=== PATIENT | female | born 1935 | race Caucasian/White ===

== ENCOUNTER 2020-01-25 13:58 | Inpatient (IN) | payer MEDICARE, OTHER ==
[~2020-01-25] VITALS: Ht 167.6 cm; Wt 62.9 kg
[~2020-01-25 13:58] MED LIST: ASCO100T4 PO; BIOT1CAP3 PO; BRIN8DRO OP; CALC-9 PO; CLON0.5T PO; DICL100G18 TP; DIVA500T2 PO; ESOM40CA25 PO; ESTR1PAT42 TD; GARL1CAP3 PO; LATA2.5D2 EACHEYE; LEVO50TA PO; MIRT15TA PO; MOXI3DRO18 LEFTEYE; MULT-658 PO; NEPA1.7D LEFTEYE; OMEG10005 PO; PRED5DRO16 LEFTEYE; PROP1DRO6 OP; PSYL0.5215 PO; RISP0.2519 PO; SIMV20TA PO; SIMV40TA PO; VITA1TAB19 PO
[2020-01-25] MEDS ORDERED: HALOPERIDOL LACT 5 MG/ML VIAL. IM ONE (14:30)
--- NOTE | 2020-01-25 14:33 | PHYS DOC ---
General Adult EDM: Chief Complaint: PSYCH EVALUATION HPI: HPI: 84 yo female presents after going off of her psychiatric medications. She has not been eating for about 4 days. She had a fall without loss of consciousness a couple days ago. Today she got weak and leaned against the wall and then kind of slumped to the floor. This is when family brought her in. She does not provide a very useful history as she changes from topic to topic rapidly. 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 She denies having any issues other than being hungry. No reported fever or chills. No reported illicit drug behavior. (MARITA PARK DO) Review of Systems: Review of Systems: Constitutional: Denies fever or chills Eyes: Denies change in visual acuity HENT: Denies nasal congestion or sore throat Respiratory: Denies cough or shortness of breath Cardiovascular: Denies chest pain or edema GI: Denies abdominal pain, nausea, vomiting, bloody stools or diarrhea : Denies dysuria Musculoskeletal: Denies back pain or joint pain Integument: Denies rash Neurologic: Denies headache, focal weakness or sensory changes Endocrine: Denies polyuria or polydipsia Lymphatic: Denies swollen glands Psychiatric: Pressured speech, wants to to be with her (MARITA PARK DO) Heart Score: Risk Factors: Risk Factors: DM, Current or recent (<one month) smoker, HTN, HLP, family history of CAD, obesity. Risk Scores: Score 0 - 3: 2.5% MACE over next 6 weeks - Discharge Home Score 4 - 6: 20.3% MACE over next 6 weeks - Admit for Clinical Observation Score 7 - 10: 72.7% MACE over next 6 weeks - Early Invasive Strategies (MARITA PARK DO) Current Medications: Current Meds: Current Medications Medications (Trade) Dose Ordered Sig/Sariah Start Time Stop Time Status Last Admin Dose Admin Haloperidol Lactate (Haldol) 5 mg 1X ONCE 01/25/20 14:30 01/25/20 14:31 (MARITA PARK DO) Allergies: Allergies: Allergies Coded Allergies Type Severity Reaction Last Updated Verified Penicillins Allergy Unknown 10/23/14 Yes (MARITA PARK DO) Physical Exam: PE: Constitutional: Well developed, well nourished, no acute distress, non-toxic appearance. [] HENT: Normocephalic, atraumatic, bilateral external ears normal, oropharynx moist, no oral exudates, nose normal. [] Eyes: PERRLA, EOMI, conjunctiva normal, no discharge. [] Neck: Normal range of motion, no tenderness, supple, no stridor. [] Cardiovascular:Heart rate regular rhythm, no murmur [] Lungs & Thorax: Bilateral breath sounds clear to auscultation [] Abdomen: Bowel sounds normal, soft, no tenderness, no masses, no pulsatile masses. [] Skin: Warm, dry, no erythema, no rash. [] Back: No tenderness, no CVA tenderness. [] Extremities: No tenderness, no cyanosis, no clubbing, ROM intact, no edema. [] Neurologic: Alert and oriented X 3, normal motor function, normal sensory function, no focal deficits noted. [] Psychologic: Affect hypersensitive, pressured speech, depressed. [] (MARITA PARK DO) EKG: EKG: Sinus rhythm, rate 80, normal axis, no ST elevations or depressions, PACs [] (MARITA PARK DO) Radiology/Procedures: Radiology/Procedures: [] (MARITA PARK DO) Impressions: PROCEDURE: CT HEAD WO CONTRAST CT head without contrast PQRS statement: CT scans at this facility use dose reduction including either automated exposure control, iterative reconstructions, and /or weight based radiation dosing via mA and kV modification when appropriate to reduce radiation dose to as low as reasonably achievable. HISTORY: Weakness, recent fall. COMPARISON: CT head May 04, 2010. FINDINGS: Senescent basal ganglia calcification stable. Mild generalized brain atrophy. Cerebral white matter hypoattenuation may represent changes of chronic small vessel ischemic disease. No intracranial hemorrhage, mass, orbits hydrocephalus. Hypodense foci of the basal ganglia and right thalamus not apparent on the prior exam could represent age-indeterminate ischemic infarcts. Surgical density of the right lateral orbit for glaucoma. Mastoids and bones are unremarkable. IMPRESSION: Age-indeterminate bilateral basal ganglia and right thalamic hemisphere ischemic infarcts new from prior imaging in 2009. Acuity versus chronicity could be further assessed with MR imaging. Electronically signed by: Quentin Cagle MD (01/25/2020 6:55 PM) [facility] (SYLVESTER RICHARD Jr. DO) Course & Med Decision Making: Course & Med Decision Making Pertinent Labs and Imaging studies reviewed. (See chart for details) During the patient's rapidly changing topics, she mentioned that she is depressed on that she just wants to to go be with her who is already . She made a passive threat about the heating repair technician, but I do not believe it is credible and requires reporting. We will give her 5 mg of Haldol and continue her medical work-up. The patient's labs are unremarkable. Her psychiatric work-up is pending. On the patient attempted to ambulate out of the room, she was quite off balance and unable to walk on her own. She lives at home by herself and I do not believe that she can go home. I have ordered a head CT. Am signing the patient out to Dr. Richard at 1800. He will determine her final disposition. [] (MARITA PARK DO) Dragon Disclaimer: Dragon Disclaimer: This electronic medical record was generated, in whole or in part, using a voice recognition dictation system. 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
[2020-01-25 14:51] LABS: BASO # 0.1 x10^3/uL (0.0-0.2); BASO % 1 % (0-3); EOS # 0.1 x10^3/uL (0.0-0.7); EOS % 1 % (0-3); HEMATOCRIT 44.2 % (36.0-47.0); HEMOGLOBIN 14.6 g/dL (12.0-15.5); LYMPH # 1.8 x10^3/uL (1.0-4.8); LYMPH % 25 % (24-48); MEAN CORPUSCULAR HEMOGLOBIN 29 pg (25-35); MEAN CORPUSCULAR HGB CONC 33 g/dL (31-37); MEAN CORPUSCULAR VOLUME 87 fL (79-100); MONO # 0.6 x10^3/uL (0.0-1.1); MONO % 9 % (0-9); NEUT # 4.5 x10^3uL (1.8-7.7); NEUT % 64 % (31-73); PLATELET COUNT 228 x10^3/uL (140-400); RED BLOOD COUNT 5.05 x10^6/uL (3.50-5.40); RED CELL DISTRIBUTION WIDTH 14.8 % (11.5-14.5); WHITE BLOOD COUNT 6.9 x10^3/uL (4.0-11.0)
[2020-01-25 15:30] LABS: BILIRUBIN,URINE NEG (NEG); CLARITY,URINE HAZY; COLOR,URINE YELLOW; GLUCOSE,URINE NEG (NEG); NITRITE,URINE NEG (NEG); UROBILINOGEN,URINE 0.2 mg/dL (0.2 mg/dL)
[2020-01-25 15:31] LABS: BACTERIA,URINE FEW /HPF (0-FEW); SQUAMOUS EPITHELIAL CELL,UR FEW /LPF
[2020-01-25 16:08] LABS: CALCIUM 9.2 mg/dL (8.5-10.1); GFR 52.8; POTASSIUM 3.2 mmol/L (3.5-5.1)
[2020-01-25 16:20] LABS: ALBUMIN 3.5 g/dL (3.4-5.0); ALBUMIN/GLOBULIN RATIO 0.9 (1.0-1.7); MAGNESIUM 2.3 mg/dL (1.8-2.4); TOTAL BILIRUBIN 0.4 mg/dL (0.2-1.0); TOTAL PROTEIN 7.2 g/dL (6.4-8.2)
--- NOTE | 2020-01-25 18:57 | RAD ---
CT head without contrast PQRS statement: CT scans at this facility use dose reduction including either automated exposure control, iterative reconstructions, and /or weight based radiation dosing via mA and kV modification when appropriate to reduce radiation dose to as low as reasonably achievable. HISTORY: Weakness, recent fall. COMPARISON: CT head May 04, 2010. FINDINGS: Senescent basal ganglia calcification stable. Mild generalized brain atrophy. Cerebral white matter hypoattenuation may represent changes of chronic small vessel ischemic disease. No intracranial hemorrhage, mass, orbits hydrocephalus. Hypodense foci of the basal ganglia and right thalamus not apparent on the prior exam could represent age-indeterminate ischemic infarcts. Surgical density of the right lateral orbit for glaucoma. Mastoids and bones are unremarkable. IMPRESSION: Age-indeterminate bilateral basal ganglia and right thalamic hemisphere ischemic infarcts new from prior imaging in 2009. Acuity versus chronicity could be further assessed with MR imaging. Electronically signed by: Quentin Cagle MD (01/25/2020 6:55 PM) [facility]
[2020-01-25] MEDS ORDERED: POTASSIUM CHLORIDE 20 MEQ TABLET.ER. PO ONE (19:00)
--- NOTE | 2020-01-25 19:57 | EKG ---
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
[2020-01-25] MEDS ORDERED: IV NORMAL SALINE 1,000ML 1,000 ML IV ONE (20:00)
--- NOTE | 2020-01-25 21:09 | NUR ---
The patient, NATALIYA RAMÍREZ, 84 y/o, F admitted by ALDEN MAX MD, was given written information regarding hospital policies, unit procedures and contact persons. Valuables were checked and logged. Call light in place. Will continue to monitor.
[2020-01-25 21:20] VITALS: BP 103/48
[2020-01-25] MEDS: IV NORMAL SALINE 1,000ML 1,000 ML IV SCH (21:34)
[2020-01-26] VITALS: BP 136/63
--- NOTE | 2020-01-26 03:10 | NUR ---
Pt woke up to used the BSC. Up with one assist, very weak. Pt cooperative and got back in bed and resting now.
[2020-01-26 04:55] VITALS: BP 95/45
--- NOTE | 2020-01-26 05:04 | NUR ---
Pt resting comfortable at this time. VSS. Pt to have am labs to be drawn. Family (son) to bring in pt med list and her cell phone today. Pt is calm and compliant with cares currently.
[2020-01-26 07:00] VITALS: BP 105/52
[2020-01-26] MEDS: IV NORMAL SALINE 1,000ML 1,000 ML IV SCH (07:00)
--- NOTE | 2020-01-26 10:19 | RAD ---
Carotid artery duplex Doppler ultrasound HISTORY: Speech difficulty. Age-indeterminate basal ganglia infarct on recent CT imaging. Stenosis calculations for CT, MR, and conventional angiography are based upon measurements of the distal ICA diameter in accordance with the NASCET methodology. Stenosis calculations for carotid ultrasound studies are derived from validated velocity criteria which are known to correlate with the NASCET methodology. FINDINGS: Right carotid artery demonstrates diffuse mild smooth subintimal plaque thickening throughout the common carotid and bifurcation with slight echogenic flat plaquing at the bifurcation without significant stenosis by color Doppler sonography. Normal carotid waveforms. Internal carotid artery peak systolic velocity 84 cm/s, end-diastolic velocity 12 cm/s. ICA/CC velocity ratio less than 1 which is normal. Velocity measurements indicate stenosis of less than 50 percent of the carotid artery. Right vertebral artery antegrade blood flow. Left carotid artery demonstrates diffuse smooth subintimal plaque thickening throughout the common carotid and bifurcation with slight flattening echogenic plaque at the bifurcation without stenosis by color Doppler sonography. Normal carotid waveforms. Internal carotid artery peak systolic velocity 91 cm/s, end-diastolic velocity 15 cm/s. ICA/CC velocity ratio is less than 1 which is normal. Velocity measurements indicate less than 50 percent stenosis of the carotid artery. Left vertebral artery antegrade blood flow. IMPRESSION: Mild plaquing of the cervical carotid arteries without evidence of significant stenosis or occlusion. Bilateral vertebral artery antegrade blood flow. Electronically signed by: Quentin Cagle MD (01/26/2020 10:16 AM) [facility]
[2020-01-26] MEDS ORDERED: HYDROcodone/APAP 10/325 1 TAB TABLET PO PRN (10:30)
[2020-01-26] MEDS ORDERED: OLANZapine IM 10 MG VIAL. IM PRN (10:30)
[2020-01-26 11:00] VITALS: BP 114/63
[2020-01-26] MEDS ORDERED: PANT40TA6 PO (14:47)
[2020-01-26] MEDS ORDERED: BRIN8DRO OS (14:47)
[2020-01-26] MEDS ORDERED: CYCL1DRO EACHEYE (14:47)
[2020-01-26] MEDS ORDERED: SIMV40TA18 PO (14:47)
[2020-01-26] MEDS ORDERED: BIMA2.5D OS (14:47)
[2020-01-26] MEDS ORDERED: DIVA500T4 PO (14:47)
[2020-01-26] MEDS ORDERED: MIRT15TA PO (14:47)
[2020-01-26] MEDS ORDERED: CLON0.5T PO (14:47)
--- NOTE | 2020-01-26 15:11 | NUR ---
Pt complaining of right lower leg pain, told this nurse she needed a pillow under it. This nurse placed a pillow under pt leg. Pt stated she needed more pillows, that she needed 4 more pillows under leg. 4 more pillows placed by this nurse under leg and again pt told this nurse that it wasn't enough. At this point this nurse started a discussion with pt about other ways to help alleviate pt leg pain because her leg appeared to be hyper-elevated Pt stated that her doctor was very specific about her need to elevate her legs for so many hrs during the day. Pt became agitated with this nurse and told this nurse she didn't understand what she was talking about. Pt demanded that nurse bring in a witness. This nurse brought in agricultural and forestry supervisor. 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 Bacon De Rinder asked pt what she did at hospital which caused pt to get even more agitated. Pt asked agricultural and forestry supervisor if pt asked agricultural and forestry supervisor to ask anymore questions.
[2020-01-26] MEDS ORDERED: clonazePAM 0.5 MG TABLET PO PRN (15:30)
[2020-01-26 15:58] LABS: CALCIUM 8.5 mg/dL (8.5-10.1); CREATININE 0.8 mg/dL (0.6-1.0); GFR 68.3; POTASSIUM 4.1 mmol/L (3.5-5.1)
[2020-01-26 16:04] LABS: ALBUMIN 2.7 g/dL (3.4-5.0); ALBUMIN/GLOBULIN RATIO 0.9 (1.0-1.7); TOTAL BILIRUBIN 0.7 mg/dL (0.2-1.0); TOTAL PROTEIN 5.6 g/dL (6.4-8.2)
--- NOTE | 2020-01-26 16:50 | HP ---
ADMIT DATE: 01/25/2020 HISTORY OF PRESENT ILLNESS: The patient is an 84-year-old -Finnish female patient, who was brought by her family to the Emergency Room, she has gone off her psychiatric medication. She has not been eating for about 4 days. She had a fall without loss of consciousness a couple of days ago and on the day of admission, she got weak and leaned against the wall and then kind of slumped to the floor, this is when the family brought her to the Emergency Room. She does not provide any useful history as she changes from topic to topic rapidly. She does not like the president [facility] and does not like to be asked about hindu. She denies having other than being hungry. No reports of fever or chills. No reported illicit drug behavior. She was extensively investigated in the Emergency Room and her EKG showed that she was in sinus rhythm at a rate of 80 beats per minute, no ST segment elevation or depression. Her CT scan of the head without contrast showed that the patient has senescent basal ganglia calcification, stable mild generalized brain atrophy, cerebral white matter hypoattenuation may represent changes of chronic small vessel ischemic disease, no intracranial hemorrhage, mass, or hydrocephalus. She does have hypodense foci of basal ganglia and right thalamus not apparent on the prior exam, could represent age indeterminate ischemic infarct. She has also surgical density in the right lateral orbit for glaucoma. Mastoids and bones are unremarkable. Apparently, the patient was supposed to be admitted as she mentioned that she is depressed that she just wanted to to be with her . She made a passive traits about the vice president education, but I don't believe it is credible under quash reporting. She was given 5 mg of Haldol and has had some lab work done, which basically were mostly unremarkable except that her potassium was low and the patient was therefore admitted to [facility] for medical clearance, continue further evaluation of possible new ischemic strokes and to consult the neurologist. Once stabilized, she can be transferred [facility] for inpatient psychiatric stabilization. PAST MEDICAL HISTORY: Significant for hypothyroidism, hyperlipidemia. She has also glaucoma. PAST SURGICAL HISTORY: Significant for bilateral cataract extraction. She also has surgery for her right eye for glaucoma, thyroidectomy as well as total abdominal hysterectomy. ALLERGIES: SHE IS ALLERGIC TO PENICILLIN. MEDICATIONS: She is currently on following medications: She is on simvastatin 60 mg at bedtime, omega-3 fatty acid 1000 mg 3 times a day, clonazepam 0.5 mg at bedtime, Divalproex for Depakote extended release she takes 1000 mg at bedtime, mirtazapine 15 mg at bedtime, cyclosporine 1 drop to both eyes twice a day, Simbrinza 1 drop to both eyes. She is on Lumigan 1 drop to both eyes at bedtime. She is on psyllium husk for Metamucil 520 mg p.o. daily. She is on Protonix 40 mg once a day, ascorbic acid 100 mg twice a day and garlic 1 capsule once a day. FAMILY HISTORY: Noncontributory. SOCIAL HISTORY: She is . She lives alone. She apparently had her children are living around, apparently taking care of her. She does not smoke, drink alcohol or use any recreational drugs. REVIEW OF SYSTEMS: As per history of present illness. PHYSICAL EXAMINATION: GENERAL: On arrival to the Emergency Room. Apparently, she was in a manic episode. She apparently was talking fast and she has a flight of ideas, changing topics quickly and on arrival, she looked pale, but no jaundice, cyanosis or thyromegaly. No jugular venous distention or limb edema. VITAL SIGNS: Her heart rate was 87, blood pressure was 180/101, temperature was 97.9, respiratory rate was 18 and oxygen saturation was 95%. HEAD, EYES, EARS, NOSE AND THROAT: Showed normocephalic and atraumatic. NECK: Supple. HEART: Showed normal first and second heart sounds. No gallop, rub or murmur. CHEST: Clear to auscultation. No crepitation or rhonchi. ABDOMEN: Distended, soft, nontender. NEUROLOGIC: She is very hard of hearing, has bilateral hearing aids with all other cranial nerves are intact. EXTREMITIES: She moves all extremities without difficulty. Examination of both legs showed no clubbing, cyanosis or edema. LABORATORY DATA: On admission showed a serum sodium 143, potassium 3.2, chloride 106, bicarbonate 30, anion gap of 7, BUN 27, creatinine 1, estimated GFR was 52 mL per minute. Her glucose was 141, calcium was 9.2, magnesium was 2.3. Her serum iron, TIBC, serum ferritin, iron deficiency anemia. Her total bilirubin, AST, ALT, alkaline phosphatase were normal. Total protein 7.2, albumin 3.5. Her urinalysis was essentially unremarkable. The CT scan of the head showed the patient has age indeterminate bilateral basal ganglia and right thalamic hemispheric ischemic infarct, new from prior imaging in 2009 acuity versus chronicity could be further assessed by MRI imaging. Her carotid Doppler ultrasound showed mild plaquing of the cervical carotid arteries without evidence of any significant stenosis or occlusion. Bilateral vertebral artery antegrade blood flow. ASSESSMENT AND PLAN: The patient was admitted to the ICU with a manic episode, dementia, dehydration, generalized weakness. She also had made suicidal ideation and therefore, she will also consult the psychiatrist and she will require inpatient psychiatric stabilization. We will reconcile all her medication and we have already consulted Dr. Pabon and Dr. Cohen for evaluation and treatment. ALDEN MAX MD DR: JAK/stevo JOB#: [id number] / [id number]
[2020-01-26 19:05] VITALS: BP 116/58
--- NOTE | 2020-01-26 19:13 | CONS ---
DATE OF CONSULTATION: 01/25/2020 NEUROLOGY CONSULTATION REFERRING PHYSICIAN: Dr. Stafford. REASON FOR CONSULTATION: Abnormal head CT scan consistent with new stroke. HISTORY OF PRESENT ILLNESS: This is an 84-year-old right-handed -Citizen Of [place] female who was admitted through Emergency Room on 01/25/2020 on account of generalized weakness, frequent falls without loss of consciousness. The patient stated the last fall was approximately 3 days ago and she related that to weakness of the lower extremities. Currently, she denies headaches, visual disturbances, nausea, vomiting, chest pain, shortness of breath or palpitation, dysarthria or dysphagia. In the Emergency Room, she was found to be depressed and she wanted to , to be with her . Initial nonenhanced head CT scan revealed evidence of chronic small vessel ischemic changes and possible new versus old right thalamic infarct, which were not seen in the head CT scan in 2009. PAST MEDICAL HISTORY: Significant for hypothyroidism, hyperlipidemia, glaucoma. PAST SURGICAL HISTORY: Positive for bilateral cataract removal, right eye surgery, thyroidectomy and total abdominal hysterectomy. SOCIAL HISTORY: The patient is . She lives by herself. She denies smoking, alcohol drinking, or illicit drug use. FAMILY HISTORY: Noncontributory. REVIEW OF SYSTEMS: A 12-point review of system was performed and as mentioned above in the history of present illness, otherwise unremarkable. PHYSICAL EXAMINATION: GENERAL: Well-developed, well-nourished -Citizen [place] female, not in acute distress. She weighs 62.9 kilos. VITAL SIGNS: Blood pressure 140/63, respiratory rate 18, pulse is 65 and regular, temperature 98.6, oxygen saturation 100% on room air. HEENT: Normocephalic and atraumatic, otherwise unremarkable. NECK: Supple. Negative for carotid bruit, lymphadenopathy or thyromegaly. LUNGS: Clear to A and P. CARDIOVASCULAR: Regular rate and rhythm, normal S1 and S2. There is no S3, S4 or murmur. ABDOMEN: Soft. Bowel sounds positive. EXTREMITIES: Negative for cyanosis, clubbing, or pitting edema. NEUROLOGICAL: MENTAL STATUS: The patient is alert and oriented x3. The speech is fluent. There is no language dysfunction. Memory, judgment, and abstracting thinking are fair. The patient denies hallucination or delusion. CRANIAL NERVES: Visual soliman are full. The pupils are reactive to light and accommodation. The extraocular movements are intact. There is no nystagmus. There is no facial motor or sensory deficits. Hearing is diminished bilaterally. The palate is elevated symmetrically. Sternocleidomastoid muscles are powerful bilaterally. The patient shrugs her shoulders symmetrically, protrudes her tongue in the midline without fasciculation or atrophy. MOTOR EXAMINATION: No focal muscle bulk wasting. The tone is normal. The strength is 4/5 throughout. SENSORY EXAMINATION: Revealed normal pinprick, light touch, vibratory and position senses. Deep tendon reflexes were symmetric and hypoactive with absent Achilles responses. GAIT: The stance is unsteady. The patient uses a walker for ambulation. DIAGNOSTIC DATA: Initial nonenhanced head CT scan revealed chronic small vessel ischemic changes and possible new right thalamic infarcts, not present on the CT scan performed on 2009. Carotid Doppler study revealed no evidence of acute arterial stenosis. LABORATORY DATA: CBC revealed white blood cells of 6.9000, hemoglobin 14.6, hematocrit 44.2, platelet count 228,000. Chemistry revealed sodium of 144, potassium 4.1, chloride 114, CO2 is 24, BUN 17, creatinine 0.8, glucose 100, calcium 8.5. Iron and TIBC is normal. Liver enzymes are normal. Urinalysis revealed no evidence of urinary tract infections. IMPRESSION: 1. Generalized weakness, probably due to underlying degenerative joints, more prominent at the knees and ankles. 2. Abnormal head CT scan consistent with chronic small vessel ischemic changes and right thalamic infarct may have also contributed to the generalized weakness. 3. Multiple medical problems include glaucoma, bilateral hearing loss, possible early dementia, hyperlipidemia, gastroesophageal reflux disease, hypothyroidism, depressions, and anxiety. RECOMMENDATIONS: 1. Continue with current management initiated by Dr. Stafford. 2. Continue with current management initiated by Dr. Cohen for underlying anxiety and depressions and suicidal ideations. 3. We will start the patient on baby aspirin 81 mg daily. 4. Physical therapy evaluation. 5. The patient may benefit from an inpatient psychiatric care at [facility]. M Eva MONSIVAIS MD DR: DIVINA/stevo JOB#: [id number] / [id number]
[2020-01-26] MEDS ORDERED: NON FORMULARY ITEM (Brinzolamide/Brimonid Tart (Simbrinza 1%-0.2% Eye Drops) 8 ML) OS SCH (21:00)
[2020-01-26] MEDS ORDERED: NON FORMULARY ITEM (Bimatoprost (Lumigan) 1 DROP) OS SCH (21:00)
[2020-01-26] MEDS: BRIMONIDINE 0.2% OPHTH SOLUTION 5ML BOTTLE. OS SCH ×2 (21:00→21:56)
[2020-01-26] MEDS: DORZOLAMIDE 2% OPHTH SOLUTION 10ML BOTTLE. OS SCH ×2 (21:00→21:56)
[2020-01-26] MEDS: ASCORBIC ACID 500 MG TABLET PO SCH ×2 (21:00→21:56)
[2020-01-26] MEDS: OMEGA-3 FATTY ACIDS/FISH OIL 1,000 MG CAPSULE. PO SCH ×2 (21:00→21:55)
[2020-01-26] MEDS: DIVALPROEX ER 500 MG TAB.ER.24H PO SCH (21:55)
[2020-01-26] MEDS: SIMVASTATIN 20 MG TABLET PO SCH (21:55)
[2020-01-26] MEDS: MIRTAZAPINE 15 MG TABLET PO SCH (21:56)
[2020-01-26] MEDS: LATANOPROST 0.005% OPHTH SOLUTION 2.5ML BOTTLE. OS SCH (21:56)
[2020-01-26] MEDS: cycloSPORINE 0.05% OPTH 1 DROP DROPERETTE OU SCH (21:56)
--- NOTE | 2020-01-26 22:30 | PDOC ---
Exam Note: Epifanio Note: Please also refer to the separate dictated note~for this date of service dictated separately.~Patient seen individually. Discussed the patient with Nursing staff reviewed the chart.~Reviewed interim history and current functioning. Reviewed vital signs,~Labs/ Radiology~and current medications noted below. Continue current treatment with the changes noted in the dictated addendum note Assessment: Vital Signs/I&O: Vital Signs Date Time Temp Pulse Resp B/P (MAP) Pulse Ox O2 Delivery O2 Flow Rate FiO2 01/26/20 20:00 Room Air 01/26/20 19:05 97.9 74 116/58 (77) 97 01/26/20 04:55 18 I & O 01/25/20 01/25/20 01/26/20 15:00 23:00 07:00 Intake Total 1000 ml 800 ml Balance 1000 ml 800 ml Labs: Laboratory Tests Test 01/26/20 08:45 Sodium Level 144 mmol/L (136-145) Potassium Level 4.1 mmol/L (3.5-5.1) Chloride Level 113 mmol/L (98-107) H Carbon Dioxide Level 24 mmol/L (21-32) Anion Gap 7 (6-14) Blood Urea Nitrogen 17 mg/dL (7-20) Creatinine 0.8 mg/dL (0.6-1.0) Estimated GFR (Cockcroft-Gault) 68.3 BUN/Creatinine Ratio 21 (6-20) H Glucose Level 100 mg/dL (70-99) H Calcium Level 8.5 mg/dL (8.5-10.1) Total Bilirubin 0.7 mg/dL (0.2-1.0) Aspartate Amino Transferase (AST) 33 U/L (15-37) Alanine Aminotransferase (ALT) 44 U/L (14-59) Alkaline Phosphatase 52 U/L (46-116) Total Protein 5.6 g/dL (6.4-8.2) L Albumin 2.7 g/dL (3.4-5.0) L Albumin/Globulin Ratio 0.9 (1.0-1.7) L Current Medications: Meds: Current Medications Medications (Trade) Dose Ordered Sig/Sariah Route PRN Reason Start Time Stop Time Status Last Admin Dose Admin Acetaminophen/ Hydrocodone Bitart (Lortab 10/325) 1 tab PRN Q4HRS PRN PO PAIN 01/26/20 10:30 01/26/20 10:45 Olanzapine (ZyPREXA ZYDIS) 2.5 mg PRN Q4HRS PRN PO ANXIETY / AGITATION 01/26/20 10:30 01/26/20 10:45 Cyclosporine (Restasis) 1 drop BID OU 01/26/20 21:00 01/26/20 21:56 Divalproex Sodium (Depakote Er) 1,000 mg QHS PO 01/26/20 21:00 01/26/20 21:55 Mirtazapine (Remeron) 15 mg QHS PO 01/26/20 21:00 01/26/20 21:56 Simvastatin (Zocor) 60 mg HS PO 01/26/20 21:00 01/26/20 21:55 Ascorbic Acid (Vitamin C) 500 mg BID PO 01/26/20 21:00 01/26/20 21:56 Fish Oil (Fish Oil) 1,000 mg TID PO 01/26/20 21:00 01/26/20 21:55 Latanoprost (Xalatan) 1 drop QHS OS 01/26/20 21:00 01/26/20 21:56 I have reviewed the current psychotropics carefully including drug interactions. Risk benefit ratio favors no change other than as noted in my dictated progress note. SABRINA SHANNON MD Jan 26, 2020 22:30
--- NOTE | 2020-01-26 22:49 | NUR ---
Responded to bed alarm at approx 2130, found patient sitting up at side of bed. Patient agitated, stated she had been calling for help for 15 minutes and that she needed to use the bathroom. Offered assistance with bedside commode, patient refused and demanded her son Renato be called. I placed a call to her son Renato and the patient repeated her complaint to her son that she had been calling for help for 15 minutes. I informed her son that she had not used the call light or otherwise called for help and that it was the bed alarm that alerted me she was in need of assistance. After ending the call I again offered to assist the patient with the bedside commode. Patient refused my assistance, however at this point her nurse, Shmuel had arrived and proceeded to assist patient with bedside commode.
--- NOTE | 2020-01-26 22:58 | NUR ---
Pt highly labile. Pt in pleasant mood at change of shift when Christine RN introduced this nurse to pt during bedside report. Pt allowed us to obtain VS and assist to bed. Pt tucked in and bed alarm set. Pt slept from approx. 1999 to 2144. Pt awoke upset that bed rails were up and alarm sounding. Pt reportedly attempted to use call light but had been pushing the bed rail button to raise HOB instead of utilizing the call light. Pt approached by Elías LANDAVERDE and pt would not allow him to assist her to the BSC. This nurse then entered room and pt reports she has been attempting to call for bathroom assistance for over 15 minutes without any response. But pt call light did not sound and pt did not call out. Pt reeducated on use of call light for assistance. Pt does not verbalize understanding. Pt refusing assist to BSC, states "I can do it my damn self since you people aren't willing to help. The service here is just terrible!" Reinforced to pt that staff is here to assist, but pt disagreeable. This RN stood by as pt used walker to turn and pivot to BSC, unsteady. Pt urinated and wiped self, provided x1 assist back to bed--now sitting up on bedside. Pt requested pencil and pad of paper to "report the incident to the superiors." Pt wrote on several pages, mostly nonsensical. Pt unwilling to take HS pills at this time. Pt hyperverbal, unable to focus on one topic. Pt reports she is a "prophetess" and knows what this nurse is going to say before I say it. After much coaxing and reviewing of med list provided by son, pt agreed to take all meds except for fish oil and vitamin C. Pt then states, "the curly haired girl said I could trust you, so I will. But I have no trust for that other man." PRN zyprexa given as indicated.
--- NOTE | 2020-01-26 23:39 | PN ---
DATE: SUBJECTIVE: The patient is resting, slightly propped up in bed, in no apparent distress. She is very hard of hearing and her voice is hoarse. She does have some flight of ideas and switching from one topic to another and seemed to be also paranoid. She claims that one of her relatives is a catering for her and brings her 1 week worth of food and ____ full and that her appetite is good, although she has been losing weight. She denied any suicidal or homicidal ideation. Apparently, she was evaluated by telepsych in the Emergency Room and psychiatrist recommended inpatient treatment. PHYSICAL EXAMINATION: GENERAL: When I examined her this afternoon, she looked somewhat pale, cachectic, but no jaundice, cyanosis or thyromegaly. No jugular venous distention. No limb edema. VITAL SIGNS: Her heart rate was 71, blood pressure 105/52, temperature 98.6, respiratory rate was 18 and oxygen saturation was 99% on room air. HEAD, EYES, EARS, NOSE AND THROAT: Showed normocephalic, atraumatic. She has bilateral hearing aid. NECK: Supple. CARDIAC: Normal first and second heart sounds. No gallop, rub or murmur. CHEST: Clear to auscultation. No crepitation or rhonchi. ABDOMEN: Distended, soft, nontender. NEUROLOGIC: She is very hard of hearing, otherwise all her cranial nerves are intact. She moves extremities without difficulty. LABORATORY DATA: Still pending at the time of this dictation. ASSESSMENT: The patient was admitted with what seemed to be manic episode that she stopped taking her psych medication, apparently has not been eating for about 4 days. She also had a fall without loss of consciousness a couple of days ago. She has also what seemed to be syncopal episode today. She did make remarks that she would like to and apparently she has made statement that she would like to kill the president trust company. I reconciled all her medication. She has also a finding of new ____ and her CT scan of the head showed that she has indeterminate bilateral basal ganglia and right thalamic ____ ischemic infarct, new from prior imaging in 2009. We did order fasting lipid profile, bilateral carotid Doppler. We have consulted Dr. Pabon and Dr. Cohen to assist with management. ALDEN MAX MD DR: Kyle JOB#: [id number] / [id number]
[2020-01-26 23:41] VITALS: BP 127/60
--- NOTE | 2020-01-26 23:50 | NUR ---
Pt sitting up in bed eating ice cream. Pt now requesting her daughter Dionna be called to secure her a Private Nurse. Pt reminded it is 2330 and that is it highly unlikely her daughter would be able to do so. Pt remains adamant that her daughter needs to be contacted. While attempting to place call, pt changed her mind and requested Dionna not be called until the morning instead. Pt finished snack and HOB lowered per request. Bed alarmed and call light in reach. Informed pt oncoming nurse would be here shortly, pt then asked "is she black or white? Can she be trusted?" Pt informed Seema is white and she can be trusted, pt stated, "good because I don't mess with other black people." Report given to oncoming RNSeema.
--- NOTE | 2020-01-26 23:57 | CONS ---
DATE OF CONSULTATION: 01/26/2020 PSYCHIATRIC CONSULTATION This note covers elements not covered in my initial note 01/26/2020. IDENTIFYING DATA: The patient is an 84-year-old Afro-Portuguese female seen in ICU bed 4, [facility], for a psychiatric consult requested by Dr. Stafford to evaluate the patient's psychotropics given her ongoing exacerbation of bipolar disorder, manic and worsening confusion with increasing short-term memory deficits. The patient was seen individually, discussed with AKHIL King, reviewed the chart including a psychiatric telehealth consultation completed 01/25/2020 by Sae Mcgee MD. CHIEF COMPLAINT: "I just want to go home. No, I can't go home, I don't have the keys. I used to see Ramon Davis, nurse practitioner at the [facility]. I stopped taking my medications. I wanted him to spend more time with me." Per nursing staff, the patient remains hyperverbal with ongoing mood lability. She has been upset with nursing staff that she was not given a shower when she should have earlier in the day. Remains anxious, restless, confused with worsening mood lability. HISTORY OF PRESENT ILLNESS: Reportedly, the patient has a history of bipolar disorder, mixed with psychotic features. She stopped her psychotropics a couple of weeks back and since then has had increasing paranoia, sleep disturbance, mood swings, appearing manic and she seems to like this elia. She has made statements that it would not bother her if she and then made other statements to the telehealth provider that some people had come to her home and taken some of the things "more than they should have and she wants to kill them." She denies any active suicidal or homicidal ideation at this time. She minimizes her memory deficits. PAST PSYCHIATRIC HISTORY: As above. MEDICAL HISTORY: Positive for hyperlipidemia. Reportedly, CT head has shown some vascular changes/ischemic changes. Hypothyroidism and GERD. CURRENT PSYCHOTROPICS: Remeron 15 mg at bedtime, Depakote 500 mg at bedtime, Klonopin 0.5 mg half a tablet at bedtime p.r.n. insomnia and anxiety. FAMILY HISTORY: Noncontributory. SOCIAL HISTORY: The patient lives alone at home. Her daughter is her DPOA and reportedly the DPOA has been activated. She states she has assistance with her grocery shopping. No alcohol or drug abuse history. She states she used to work at the [email or web address] on and is . MENTAL STATUS EXAMINATION: The patient was seen individually. She was seen evening of 01/26/2020, ICU bed 4. She is oriented to herself and situation. Speech has some latency, hyperverbal, somewhat distractable, difficult to interrupt her conversation, repeatedly making statements how she does not like people do not spend long periods of time with her during appointments, referring to her outpatient visits with the nurse practitioner at the [facility]. No active suicidal or homicidal ideation. She remains somewhat paranoid. Intellect average. Insight somewhat limited. Judgment intact to standard questioning. 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 Rest as above. RECOMMENDATIONS: From a psychiatric standpoint, it may be appropriate to check a valproic acid level, adjust Depakote to reach therapeutic level. Consider Risperdal or Seroquel as an atypical antipsychotic and a mood stabilizer. She may need inpatient psychiatric care. If her DPOA status is activated, this might be facilitated for the [facility] at [facility]. However, if she needs involuntary hospitalization as was initially suggested by the telehealth provider, then alternate placements may need to be sought since involuntary admissions are not accepted on our Psychiatry Unit at [facility]. Dr. Stafford, thank you for the opportunity to participate in your patient's care. We will follow with you. SABRINA SHANNON MD DR: RAQUEL/stevo JOB#: [id number] / [id number]
--- NOTE | 2020-01-27 02:45 | NUR ---
Pt slept from 0030 till about 0220. Pt woke up to used restroom. Pt stated that "I do this at home alone, let me try myself." Pt attempted to stand from sitting position on side of bed, x3 unsuccessful attempts. Pt only then allowed staff member to help "boost" her to a standing position and then swatted hand away stating "see I can do it alone." Pt up with walker and x1 assist to BSC to void. Pt then demanding a bath, stated "I stink and this bed stinks.....Its been days since I got a good bath..I will not get back in it till we both get cleaned." Pt assisted with bath and gown/bed linen changed. Pt did independently wash her face but needed x1 assist with bath, dressing and ambulating back to bed. Pt requested snack once back in bed, eating independently. Pt now doing "notes" on a pad of paper with pencil, stating "this is my thinking time..I will write a few notes for you to complete for me later." A few things on the "list" are personal belongings from home that she wants brought up to the hospital. Pt worked on her "notes" for about 40 minutes.
[2020-01-27 03:10] VITALS: BP 127/47
[2020-01-27 05:50] VITALS: BP 116/46
[2020-01-27 06:21] LABS: HEMATOCRIT 36.3 % (36.0-47.0); HEMOGLOBIN 11.9 g/dL (12.0-15.5); RED BLOOD COUNT 4.13 x10^6/uL (3.50-5.40); RED CELL DISTRIBUTION WIDTH 14.7 % (11.5-14.5); WHITE BLOOD COUNT 4.7 x10^3/uL (4.0-11.0)
[2020-01-27 06:26] LABS: ALBUMIN 2.4 g/dL (3.4-5.0); ALBUMIN/GLOBULIN RATIO 0.8 (1.0-1.7); CALCIUM 8.6 mg/dL (8.5-10.1); CREATININE 0.9 mg/dL (0.6-1.0); GFR 59.7; POTASSIUM 3.6 mmol/L (3.5-5.1); TOTAL BILIRUBIN 0.2 mg/dL (0.2-1.0); TOTAL PROTEIN 5.3 g/dL (6.4-8.2)
--- NOTE | 2020-01-27 06:30 | NUR ---
Pt slept soundly from 0325 till about 0545. Pt was cooperative with lab draw and AM vital signs. Pt assisted up to BSC with walker and x1 assist and back into bed. Pt was very particular with pillow placement under her head/legs, requesting more be added and then removed and placed back again. Pt finally found a "okay spot...it will have to do." Pt resting in bed with call light within hand. Bed alarm on.
[2020-01-27 09:17] VITALS: BP 135/64
--- NOTE | 2020-01-27 10:13 | PN ---
DATE: SUBJECTIVE: The patient denies any new medical or neurological complaints. However, she continues to have generalized weakness. OBJECTIVE: GENERAL: Well-developed, well-nourished female, not in acute distress. VITAL SIGNS: Blood pressure 135/64, respiratory rate 20, pulse is 76, temperature is 97.8, oxygen saturation 100% on room air. HEENT: Normocephalic, atraumatic, otherwise unremarkable. NECK: Supple. Negative for carotid bruit, lymphadenopathy or thyromegaly. LUNGS: Clear to A and P. CARDIOVASCULAR: Regular rate and rhythm, normal S1, S2. There is no S3, S4 or murmur. ABDOMEN: Soft. Bowel sounds positive. EXTREMITIES: Negative for cyanosis, clubbing or edema. NEUROLOGICAL EXAM: Mental Status: The patient is alert and oriented x 3. Speech is fluent. There is no language dysfunction. Memory, judgment, and abstracting thinking are fair. The patient denies hallucination or delusion. Cranial nerves are intact except for bilateral hearing loss. Motor examination: No focal muscle bulk was seen. The strength was 4/5 throughout. Sensory examination revealed normal pinprick, light touch, vibratory and position senses. Deep tendon reflexes were asymmetric and active without pathology responses. Gait: The stance is unsteady. The patient uses a walker for ambulation. LABORATORY DATA: CBC: White blood cells of 4.7 thousand, hemoglobin 11.9, hematocrit 36.3, platelet count 162,000. Chemistry revealed sodium of 144, potassium 3.6, chloride 112, CO2 of 24, BUN 14, creatinine 0.9, glucose 86 and calcium 8.6. IMPRESSION: 1. Abnormal head CT scan consistent with bilateral basal ganglia infarct and possible old right thalamic infarct as well. 2. Multiple medical problems include bilateral hearing loss, glaucoma, possible early dementia, hyperlipidemia, gastroesophageal reflux disease, hypothyroidism, depression and anxiety. RECOMMENDATIONS: 1. Continue with current management initiated by Dr. Stafford. 2. Continue with current management initiated by Dr. Cohen. 3. Physical therapy evaluation. M Eva MONSIVAIS MD DR: DIVINA/stevo JOB#: [id number] / [id number]
[2020-01-27] MEDS: DORZOLAMIDE 2% OPHTH SOLUTION 10ML BOTTLE. OS SCH ×3 (10:45→20:10)
[2020-01-27] MEDS: PANTOPRAZOLE 40 MG TABLET. PO SCH (10:45)
[2020-01-27] MEDS: BRIMONIDINE 0.2% OPHTH SOLUTION 5ML BOTTLE. OS SCH ×3 (10:45→20:09)
[2020-01-27] MEDS: cycloSPORINE 0.05% OPTH 1 DROP DROPERETTE OU SCH ×2 (10:46→20:09)
[2020-01-27] MEDS: OMEGA-3 FATTY ACIDS/FISH OIL 1,000 MG CAPSULE. PO SCH ×3 (10:46→20:10)
[2020-01-27] MEDS: ASPIRIN CHEWABLE 81 MG TABLET. PO SCH (10:46)
[2020-01-27] MEDS: ASCORBIC ACID 500 MG TABLET PO SCH ×2 (10:46→20:10)
[2020-01-27 15:00] VITALS: BP 125/70
[2020-01-27 19:33] VITALS: BP 122/75
[2020-01-27] MEDS: LATANOPROST 0.005% OPHTH SOLUTION 2.5ML BOTTLE. OS SCH (20:09)
[2020-01-27] MEDS: MIRTAZAPINE 15 MG TABLET PO SCH (20:10)
[2020-01-27] MEDS: SIMVASTATIN 20 MG TABLET PO SCH (20:10)
[2020-01-27] MEDS: DIVALPROEX ER 500 MG TAB.ER.24H PO SCH (20:10)
--- NOTE | 2020-01-27 20:11 | PN ---
DATE: 01/27/2020 SUBJECTIVE: The patient is resting, slightly propped up, sleeping comfortably in her bed, in no apparent distress. Nursing staff stated that she continued to be paranoid and delusional at times. She did actually walk with physical therapy in her room and was seen by Dr. Pabon and Dr. Cohen. Dr. Cohen has suggested that she might benefit from inpatient psychiatric stabilization. PHYSICAL EXAMINATION: GENERAL: When I examined her, she looked pale, somewhat cachectic, but no jaundice, cyanosis or thyromegaly. No jugular venous distention or limb edema. VITAL SIGNS: His heart rate was 76, blood pressure was 135/64, temperature 97.8, respiratory rate 20, and oxygen saturation 100%. HEAD, EYES, EARS, NOSE AND THROAT: Normocephalic, atraumatic. NECK: Supple. HEART: Showed normal first and second sounds. No gallop or murmur. CHEST: Clear to auscultation. No crepitation or rhonchi. ABDOMEN: Distended, soft, nontender. No guarding or rigidity. No organomegaly. All hernial orifice intact. Bowel sounds normal. NEUROLOGIC: She is grossly intact. Her intake was 1800, no output was recorded. LABORATORY DATA: Her white cell count was 4700, hemoglobin 12, hematocrit 36, MCV 88 and platelet count of 167,000. Her chemistry showed a serum sodium 144, potassium 3.6, chloride 112, bicarbonate 24, anion gap of 8, BUN 14, creatinine 0.9, estimated GFR was 59 mL per minute. Her glucose was 86, calcium was 8.6. Total bilirubin, AST, ALT, alkaline phosphatase were normal. Total protein 5.3, albumin 2.4. TSH was high at 9.618. Her serum triglycerides were 53, total cholesterol 182, LDL was 113, VLDL was 10, HDL cholesterol of 59 and ratio was only 3. Her urinalysis was essentially unremarkable. 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 The patient has multiple medical problems including hypothyroidism, hyperlipidemia as well as glaucoma. Her TSH slightly elevated at 9.4. I will arrange for her to check her T3, T4, free T4 and we will start her on perhaps Synthroid at 25 mcg if the T3, T4, free T4 are all in the lower side. ALDEN MAX MD DR: JAK/stevo JOB#: [id number] / [id number]
--- NOTE | 2020-01-27 21:02 | NUR ---
Pt called me to her room and stated she couldn't reach her job crackers that were on her window ledge near her cup of ice water as she is up sitting in her chair near the window ledge. I said, "you can't reach your job crackers?" She then placed her hand on the two packages and said, "do you see me reaching them?!" and I said yes but I thought she said she couldn't. She got hostile and I started to say another sentence and she told me to shut up! And I replied with that wasn't nice and that I apologized that I didn't see there were 3-4 more packages underneath her purse on the window ledge and I moved them over to the side table for her to have. 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 I have been doing everything she asked of me since I got here at 1900. Filling up 2 cups of ice water, one cup of just ice, dialing multiple phone numbers for her. Explaining and re-explaining each med I am giving while she checks them off a list of hers. I have answered all of her questions and done all of her requests happily.
[2020-01-28 00:06] LABS: THYROXINE 3.4 ug/dL (4.5-12.0)
[2020-01-28 00:22] VITALS: BP 108/50
[2020-01-28 04:03] VITALS: BP 121/47
[2020-01-28 06:29] LABS: CALCIUM 8.6 mg/dL (8.5-10.1); GFR 52.8
--- NOTE | 2020-01-28 07:24 | NUR ---
Pt up to chair in stable condition. Pt mood cooperative and cheerful this morning. We cleared the air from last night with one another with the misunderstanding. am labs reviewed.
[2020-01-28] MEDS: ASCORBIC ACID 500 MG TABLET PO SCH ×2 (09:00→09:16)
[2020-01-28] MEDS: DORZOLAMIDE 2% OPHTH SOLUTION 10ML BOTTLE. OS SCH ×2 (09:16→14:00)
[2020-01-28] MEDS: BRIMONIDINE 0.2% OPHTH SOLUTION 5ML BOTTLE. OS SCH ×2 (09:16→14:27)
[2020-01-28] MEDS: OMEGA-3 FATTY ACIDS/FISH OIL 1,000 MG CAPSULE. PO SCH ×2 (09:16→14:00)
[2020-01-28] MEDS: ASPIRIN CHEWABLE 81 MG TABLET. PO SCH (09:16)
[2020-01-28] MEDS: cycloSPORINE 0.05% OPTH 1 DROP DROPERETTE OU SCH (09:17)
[2020-01-28] MEDS: PANTOPRAZOLE 40 MG TABLET. PO SCH (09:18)
--- NOTE | 2020-01-28 09:32 | PN ---
DATE: SUBJECTIVE: The patient denies any new medical or neurological complaints, but she continues to have generalized weakness. OBJECTIVE: GENERAL: Well-developed, well-nourished female, not in acute distress. VITAL SIGNS: Blood pressure 121/47, respiratory rate 20, pulse is 80 and regular, temperature 97.9, oxygen saturation 97% on room air. HEENT: Normocephalic, atraumatic, otherwise unremarkable. NECK: Supple. Negative for carotid bruit, lymphadenopathy or thyromegaly. LUNGS: Clear to A and P. CARDIOVASCULAR: Regular rate and rhythm. Normal S1, S2. There is no S3, S4 or murmurs. ABDOMEN: Soft. Bowel sounds positive. EXTREMITIES: Negative for cyanosis, clubbing, pitting edema. NEUROLOGICAL: Mental status: The patient is alert and oriented x 3. Speech is fluent. There is no language dysfunction. Memory, judgment and abstracting thinking are fair. The patient denies hallucination or delusion. Cranial nerves are intact. No focal motor or sensory deficit. Motor examination: No focal muscle bulk was seen. The strength was 4/5 throughout. Sensory examination revealed normal pinprick, light touch, vibratory and position senses. Deep tendon reflexes were symmetric and active without pathologic responses. Gait: The patient is using a walker for ambulation. IMPRESSION: 1. Generalized weakness with abnormal head CT scan consistent with bilateral basal ganglia infarct and right thalamic infarct as well. 2. Multiple medical problems include bilateral hearing loss, glaucoma, possible early dementia, hyperlipidemia, gastroesophageal reflux disease, hypothyroidism. 3. Multiple psychiatric problems include bipolar disorder, possible schizoaffective disorders with psychotic features and suicidal ideation. RECOMMENDATIONS: 1. Continue with current management initiated by Dr. Stafford. 2. Continue with physical therapy as tolerated. 3. Continue with current care with current psychiatric care initiated by Dr. Cohen. 4. The patient may need inpatient psychiatric care at [facility]. M Eva MONSIVAIS MD DR: DIVINA/stevo JOB#: [id number] / [id number]
[2020-01-28 10:00] VITALS: BP 118/57
--- NOTE | 2020-01-28 15:05 | NUR ---
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 Took medications with no difficulties. Pt ambulated in [place] with PT/OT and stated that she enjoyed the activity and wished she could do it twice a day. Spoke with pt regarding her being moved up to [facility], she is understanding of this decision and hopes that after a few days she can return home. Discharge orders received from Dr Stafford, pt belongings staying with her and moving upstairs. Pt taken to [facility] via wheelchair at 1515.
[2020-01-28] MEDS ORDERED: OLAN5TAB7 PO (17:43)
[2020-01-28] MEDS ORDERED: ASPI81TA59 PO (17:43)
[2020-01-28] MEDS ORDERED: OLAN10VI2 IM (17:43)
[2020-01-28] MEDS ORDERED: HYDR-2767 PO (17:43)
--- NOTE | 2020-01-28 18:02 | DS ---
DATE OF DISCHARGE: 01/28/2020 HOSPITAL COURSE: The patient is an 84-year-old -[place] African female patient who was admitted through the Emergency Room as she apparently has not been eating for about 4 days. She had a fall without loss of consciousness a couple of days ago. On the day of admission, she got weak and leaned against the wall and then kind of clumped to the floor. She was clearly psychotic with marked flight of ideas and keeps changing topics from one to another rapidly. She was seen by Dr. 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 She was seen also by Dr. Pabon for possible new onset of stroke. As CT scan showed that she has bilateral basal ganglia infarct and the right thalamic infarct and given her underlying bipolar disorder and possible schizoaffective disorder, psychotic features and also suicidal ideation, decision was made to discharge her to [facility] for inpatient psychiatric stabilization. PHYSICAL EXAMINATION: GENERAL: When I saw her today, she was sitting slightly propped up in bed, in no apparent respiratory distress, slightly pale, but no jaundice, cyanosis or thyromegaly. No jugular venous distention. No limb edema. VITAL SIGNS: Her heart rate was 80, blood pressure was 118/57, temperature was 98.7, respiratory rate was 18 and oxygen saturation was 98%. HEAD, EYES, EARS, NOSE AND THROAT: Showed normocephalic, atraumatic. NECK: Supple. HEART: Showed normal first and second heart sounds. No gallop, rub or murmur. CHEST: Clear to auscultation. No crepitation or rhonchi. ABDOMEN: Scaphoid, soft, nontender. NEUROLOGIC: She is awake, alert, responding appropriately. LABORATORY DATA: Showed a white cell count 4700, hemoglobin 11.9, hematocrit 36, MCV 88 and platelet count of 167,000. As of this morning, her serum sodium was 144, potassium 4, chloride 110, bicarbonate 27, anion gap of 7, BUN 20, creatinine 1, estimated GFR was 52 mL per minute. Her glucose 128, calcium was 8.6. Her TSH was high at 9.618 and her total T4, free T4 and total T3 are all low indicating that she is hypothyroid and therefore we will start her on Synthroid. DISCHARGE MEDICATIONS: The patient was transferred to [facility] to continue on following medications: Protonix 40 mg once a day, aspirin 81 mg once a day, brimonidine tartrate for Alphagan one drop to both eyes 3 times a day, dorzolamide 1 drop to both eyes 3 times a day, latanoprost 1 drop to both eyes at bedtime, fish oil 1000 mg 3 times a day, ascorbic acid 500 mg twice a day, simvastatin 60 mg at bedtime, mirtazapine 60 mg at bedtime, divalproex 1000 mg at bedtime, cyclosporine 1 drop to both eyes twice a day, clonazepam 0.5 mg at bedtime, olanzapine 2.5 mg every 4 hours, olanzapine 2.5 mg at night time and hydrocodone/APAP 10/325 one tablet every 4 hours. I will add Synthroid 50 mcg once a day. FINAL DISCHARGE DIAGNOSES: 1. Generalized weakness and abnormal head CT scan consistent with bilateral basal ganglia infarct and right thalamic infarct. 2. Bipolar disorder with possible schizoaffective disorder with psychotic features and suicidal ideation. 3. Other medical problems include bilateral sensorineural deafness, glaucoma, early dementia, hyperlipidemia, gastroesophageal reflux disease and hypothyroidism. ALDEN MAX MD DR: JAK/stveo JOB#: [id number] / [id number]
== END 2020-01-28 15:15 | DRG 65 ==
LOC: ER 13:58 → ICU 21:02
PROVIDERS: ADMIT Internal Medicine; ATTEND Internal Medicine
DX: I63.89 Other cerebral infarction (principal); F31.64 Bipolar disorder, current episode mixed, severe, with psychotic features; R45.851 Suicidal ideations; F41.9 Anxiety disorder, unspecified; H40.9 Unspecified glaucoma; E03.9 Hypothyroidism, unspecified; E78.5 Hyperlipidemia, unspecified; Z60.2 Problems related to living alone; E86.0 Dehydration; H90.3 Sensorineural hearing loss, bilateral; K21.9 Gastro-esophageal reflux disease without esophagitis; G31.9 Degenerative disease of nervous system, unspecified; F01.50 Vascular dementia, unspecified severity, without behavioral disturbance, psychotic disturbance, mood disturbance, and anxiety; R29.6 Repeated falls; W19.XXXA Unspecified fall, initial encounter; Y93.89 Activity, other specified; Y92.89 Other specified places as the place of occurrence of the external cause; Y99.8 Other external cause status; Z79.899 Other long term (current) drug therapy; Z88.0 Allergy status to penicillin; Z98.41 Cataract extraction status, right eye; Z98.42 Cataract extraction status, left eye; Z90.710 Acquired absence of both cervix and uterus; Z03.818 Encounter for observation for suspected exposure to other biological agents ruled out
CPT/HCPCS: 36415; 70450; 80048; 80053; 80061; 81001; 83540; 83550; 83735; 84436; 84439; 84443; 84480; 85025; 85027; 93005; 93880; 96361; 96374; J2060; 97110; 97530; 99285-25; J7030; U0003-CS

== ENCOUNTER 2020-01-28 15:18 | Inpatient (IN) | payer MEDICARE, OTHER ==
[~2020-01-28] VITALS: Ht 167.6 cm; Wt 81.8 kg
[~2020-01-28 15:18] MED LIST changes: +BIMA2.5D OS; +BRIN8DRO OS; +CYCL1DRO EACHEYE; +DIVA500T4 PO; +PANT40TA6 PO; +SIMV40TA18 PO
[2020-01-28 15:58] VITALS: BP 141/80
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
[2020-01-28] MEDS ORDERED: METHYL SALICYLATE/MENTHOL TOPICAL OINTMENT 57GM TUBE. TP PRN (17:30)
[2020-01-28] MEDS ORDERED: MAGNESIUM HYDROXIDE 2,400 MG/30 ML ORAL.SUSP. PO PRN (17:30)
[2020-01-28] MEDS ORDERED: MAG HYDROX/AL HYDROX/SIMETH 30 ML ORAL.SUSP PO PRN (17:30)
[2020-01-28] MEDS ORDERED: ASPI81TA59 PO (17:43)
[2020-01-28] MEDS ORDERED: OLAN5TAB7 PO (17:43)
[2020-01-28] MEDS ORDERED: OLAN10VI2 IM (17:43)
[2020-01-28] MEDS ORDERED: HYDR-2767 PO (17:43)
[2020-01-28] MEDS ORDERED: OLANZapine IM 10 MG VIAL. IM PRN (17:45)
[2020-01-28] MEDS ORDERED: clonazePAM 0.5 MG TABLET PO PRN (17:45)
[2020-01-28 19:45] VITALS: BP 158/83
[2020-01-28] MEDS ORDERED: NON FORMULARY ITEM (Bimatoprost (Lumigan) 1 DROP) OS SCH (21:00)
[2020-01-28] MEDS: ASCORBIC ACID 500 MG TABLET PO SCH (21:00)
[2020-01-28] MEDS ORDERED: NON FORMULARY ITEM (Brinzolamide/Brimonid Tart (Simbrinza 1%-0.2% Eye Drops) 8 ML) OS SCH (21:00)
[2020-01-28] MEDS: LATANOPROST 0.005% OPHTH SOLUTION 2.5ML BOTTLE. OS SCH (21:25)
[2020-01-28] MEDS: BRIMONIDINE 0.2% OPHTH SOLUTION 5ML BOTTLE. OS SCH (21:25)
[2020-01-28] MEDS: DORZOLAMIDE 2% OPHTH SOLUTION 10ML BOTTLE. OS SCH (21:26)
[2020-01-28] MEDS: cycloSPORINE 0.05% OPTH 1 DROP DROPERETTE OU SCH (21:27)
[2020-01-28] MEDS: MIRTAZAPINE 15 MG TABLET PO SCH (21:28)
[2020-01-28] MEDS: DIVALPROEX ER 500 MG TAB.ER.24H PO SCH (21:28)
[2020-01-28] MEDS: OMEGA-3 FATTY ACIDS/FISH OIL 1,000 MG CAPSULE. PO SCH (21:28)
[2020-01-28] MEDS: SIMVASTATIN 20 MG TABLET PO SCH (21:29)
--- NOTE | 2020-01-28 22:15 | PDOC ---
Exam Note: Epifanio Note: Please also refer to the separate dictated note~for this date of service dictated separately.~Patient seen individually. Discussed the patient with Nursing staff reviewed the chart.~Reviewed interim history and current functioning. Reviewed vital signs,~Labs/ Radiology~and current medications noted below. Continue current treatment with the changes noted in the dictated addendum note Assessment: Vital Signs/I&O: Vital Signs Date Time Temp Pulse Resp B/P (MAP) Pulse Ox O2 Delivery O2 Flow Rate FiO2 01/28/20 19:45 97.9 110 20 158/83 (108) 99 Room Air Current Medications: Meds: Current Medications Medications (Trade) Dose Ordered Sig/Sariah Route PRN Reason Start Time Stop Time Status Last Admin Dose Admin Cyclosporine (Restasis) 1 drop BID OU 01/28/20 21:00 01/28/20 21:27 Fish Oil (Fish Oil) 1,000 mg TID PO 01/28/20 21:00 01/28/20 21:28 Divalproex Sodium (Depakote Er) 1,000 mg QHS PO 01/28/20 21:00 01/28/20 21:28 Mirtazapine (Remeron) 15 mg QHS PO 01/28/20 21:00 01/28/20 21:28 Simvastatin (Zocor) 60 mg HS PO 01/28/20 21:00 01/28/20 21:29 Latanoprost (Xalatan) 1 drop QHS OS 01/28/20 21:00 01/28/20 21:25 Dorzolamide HCl (Trusopt) 1 drop TID OS 01/28/20 21:00 01/28/20 21:26 Brimonidine Tartrate (Alphagan) 1 drop TID OS 01/28/20 21:00 01/28/20 21:25 I have reviewed the current psychotropics carefully including drug interactions. Risk benefit ratio favors no change other than as noted in my dictated progress note. Diagnosis: Problems: (1) Bipolar disorder with psychotic features (2) Cognitive impairment SABRINA SHANNON MD Jan 28, 2020 22:15
--- NOTE | 2020-01-28 23:13 | NUR ---
Pt sitting in room at shift change. During nursing report, pt was noted to walk to her doorway using rw when she went down on her knees. Pt was then witnessed by two RN's to descend to the floor in a controlled manner. When staff attempted to assist, pt stated "I think I'm dying". Staff asked pt why she felt this way but she refused to answer any questions. VS obtained and were stable. When staff attempted to help pt up off the floor, pt became rigid and refused to help but maintained an upright position. Pt was then placed in her bed by staff, bed lowered, and alarm on. After approximately 20 minutes, pt then got up on her own and staff responded to the bed alarm. Pt reported she needed to use the bathroom and staff assisted. After which, pt proceeded to wash and dry her hands three times, repeatedly. Pt mood has been very labile this evening; she has been irritable, anxious, and tearful. Pt has also been hyper-verbal and tangental. Pt has asked multiple times to use the phone to call her daughter, her furniture mechanic, or the police. Pt has also asked multiple staff how she gets "out of this place". Pt resistive with eye drops and medications this evening but did comply after much encouragement.
--- NOTE | 2020-01-29 01:30 | NUR ---
This nurse entered pt room as bed alarm sounding. Pt sitting up on the side of the bed, c/o LE edema. Pt demanding doctor be called to hospital to see her "Now!" I informed pt that is not proper procedure and the doctor would be here in the morning to see her. Pt stated "you mean I have to wait until in the morning? I could have a blood clot or something!" After examining pt LE again, I informed pt that there are currently no s/sx of blood clot. Pt then stated "You think I don't know what a blood clot is? 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 I am a prophetess!" Pt then reported to this nurse that she would just stay up the rest of the night until she could talk to the doctor. Pt then proceeded to place herself on the floor in her room in a sitting position.
--- NOTE | 2020-01-29 01:53 | NUR ---
Pt tab alarm sounding, this nurse entered pt room and noted pt to have the alarm box in her brief. This nurse removed the alarm from pt's brief and she attempted to snatch it back out of my hands. Pt then began to claim that she had fallen out of bed, when I confronted her with the fact that she was seen placing herself on the floor, pt began to yell and call me a liar. Pt then threatened to call the police and have people fired. Pt then accused this nurse of "getting smart" when I was simply agreeing with her. Pt then stated "Lady! I hope your babies..." I told pt there was no need tpo threaten me or anyone else and she said "well, I didn't say what about your baby. I hope you have a safe delivery". I then informed her that I was not expecting and pt said "I am a prophetess! I see things! And you people just expect me to stay on the floor all night." I offered to help her off the floor but pt instead threatened me again with calling the police and getting people fired. Pt then proceeded to rip her wig off of her head and throw it. At this time, staff exited the room.
[2020-01-29 05:53] VITALS: BP 162/65
[2020-01-29 06:51] LABS: BASO % 0 % (0-3); EOS # 0.1 x10^3/uL (0.0-0.7); EOS % 2 % (0-3); HEMATOCRIT 41.5 % (36.0-47.0); HEMOGLOBIN 13.4 g/dL (12.0-15.5); LYMPH # 1.4 x10^3/uL (1.0-4.8); LYMPH % 24 % (24-48); MEAN CORPUSCULAR HEMOGLOBIN 29 pg (25-35); MEAN CORPUSCULAR HGB CONC 32 g/dL (31-37); MEAN CORPUSCULAR VOLUME 89 fL (79-100); MONO # 0.4 x10^3/uL (0.0-1.1); MONO % 7 % (0-9); NEUT % 68 % (31-73); PLATELET COUNT 194 x10^3/uL (140-400); RED BLOOD COUNT 4.68 x10^6/uL (3.50-5.40); RED CELL DISTRIBUTION WIDTH 14.8 % (11.5-14.5); WHITE BLOOD COUNT 5.9 x10^3/uL (4.0-11.0)
--- NOTE | 2020-01-29 07:07 | NUR ---
Patient is aggressive and agitated, she is demanding her glasses. Staff pointed out she has her glasses, she states she wants the other ones. Patient states she cannot hear staff while wearing staff, when staff speak louder, she stated 'don't scream at me'. Patient then deliberately broke her glasses, she bent the frame so that it will no longer hold the left lens. Patient was able to continue to argue with staff despite not wearing her hearing aids and staff wearing their masks. Patient is now pacing in hallway. Will continue to monitor and report to .
[2020-01-29 07:10] LABS: ALBUMIN 3.1 g/dL (3.4-5.0); ALBUMIN/GLOBULIN RATIO 0.8 (1.0-1.7); ALK PHOS 62 U/L (46-116); ALT (SGPT) 33 U/L (14-59); ANION GAP 9 (6-14); AST (SGOT) 19 U/L (15-37); BLOOD UREA NITROGEN 18 mg/dL (7-20); BUN/CREATININE RATIO 18 (6-20); CALCIUM 8.9 mg/dL (8.5-10.1); CARBON DIOXIDE 27 mmol/L (21-32); CHLORIDE 108 mmol/L (98-107); GFR 52.8; GLUCOSE 133 mg/dL (70-99); MAGNESIUM 1.9 mg/dL (1.8-2.4); SODIUM 144 mmol/L (136-145); TOTAL BILIRUBIN 0.2 mg/dL (0.2-1.0); TOTAL PROTEIN 6.9 g/dL (6.4-8.2)
[2020-01-29 07:21] LABS: VAL ACID 64 mcg/mL (50-100)
[2020-01-29 07:22] LABS: POTASSIUM 3.6 mmol/L (3.5-5.1)
[2020-01-29] MEDS: ASCORBIC ACID 500 MG TABLET PO SCH ×3 (09:25→20:56)
[2020-01-29] MEDS: ASPIRIN CHEWABLE 81 MG TABLET. PO SCH ×2 (09:25→09:27)
[2020-01-29] MEDS: cycloSPORINE 0.05% OPTH 1 DROP DROPERETTE OU SCH ×2 (09:27→21:00)
[2020-01-29] MEDS: DORZOLAMIDE 2% OPHTH SOLUTION 10ML BOTTLE. OS SCH ×4 (09:27→21:00)
[2020-01-29] MEDS: OMEGA-3 FATTY ACIDS/FISH OIL 1,000 MG CAPSULE. PO SCH ×3 (09:27→20:56)
[2020-01-29] MEDS: BRIMONIDINE 0.2% OPHTH SOLUTION 5ML BOTTLE. OS SCH ×3 (09:27→21:00)
[2020-01-29] MEDS: PANTOPRAZOLE 40 MG TABLET. PO SCH (09:27)
--- NOTE | 2020-01-29 11:15 | NUR ---
Patient complained to charge nurse that her room was too hot. When the charge nurse attempted to tell her that she would have to be patient because the unit nolen is broken, Patient pretended not to be able to hear her because the charge nurse had her surgical mask on and banged on the window, demanding to have someone come right now. She then went to sit in the [address] hallway after being informed multiple times that it would take several minutes. Charge nurse informed me of patient's complaint and we turned on the AC in patient's room, thermometer read 74*F. Patient saw plant ops on the unit and complained to them that her room was too hot; plant ops checked her thermostat about 2 minutes after charge nurse and I had left her room. We left her room and patient entered. She then immediately came out of her room and complained that it was too cold. Patient instructed to wait for the system to adjust. Patient refused snacks after asking for them several times and instructed there were snacks in the day room and she was welcome to walk to the day room to get some. She refused, stating she had diarrhea and could not walk that far. This was at the same time that she walked to the [facility] nurses' station to talk with plant ops personnel. When staff brought the snack cart by her room shortly after, patient refused, stating that she was fasting.
--- NOTE | 2020-01-29 11:33 | CONS ---
DATE OF CONSULTATION: 01/29/2020 ATTENDING PHYSICIAN: Dr. Cohen. REASON FOR CONSULTATION: We are asked to see this patient for medical consultation. HISTORY OF PRESENT ILLNESS: The patient is an 84-year-old female who was admitted yesterday. She has a longstanding history of bipolar disorder with psychotic features, cognitive impairment. She is very paranoid. She does not want to be here. She was thrashing about. We tried to calm her down. Unfortunately, she remains very paranoid and uncooperative. She has been here evidently in the past before. She desperately wants to leave and go home. PAST MEDICAL HISTORY: Obtained from the old chart. She has a history of cognitive impairment, dementia, bipolar disorder with psychotic features, paranoia and cataract surgery. CURRENT MEDICINES: Reviewed. ALLERGIES: She has allergies to PENICILLIN, which causes a rash. CURRENT MEDICATIONS: Include Mylanta, vitamin C, aspirin, Alphagan eyedrops, Klonopin p.r.n., Restasis eyedrops, Depakote, Trusopt, omega 3 fish oil, hydrocodone p.r.n., Xalatan eyedrops, magnesium hydroxide, Remeron, Zyprexa, Protonix, Zocor. SOCIAL HISTORY: She is a nonsmoker, nondrinker. FAMILY HISTORY: Unobtainable. REVIEW OF SYSTEMS: Unobtainable due to the patient's mental state. PHYSICAL EXAMINATION: VITAL SIGNS: On admission showed a blood pressure of 141/80, pulse is 86 and regular, temperature 98.3 degrees Fahrenheit and her oxygen saturation were 99% on room air. HEENT: Head is without trauma. Pupils are reactive. Sclerae nonicteric. Oropharynx is clear. NECK: Supple, no bruits identified. LUNGS: Otherwise clear. CARDIOVASCULAR: Showed distant heart tones. No gallops. Peripheral pulses are palpable and full. ABDOMEN: Soft, scaphoid, nontender, no organomegaly. Bowel sounds are hypoactive. EXTREMITIES: Showed 2+ edema of the lower extremities, nonpitting. NEUROLOGIC: The patient is confused. She is very agitated and paranoid and thrashing about. PERTINENT LABORATORY STUDIES: Her hemoglobin is maintained at 13.4 g/dL with white count of 5900. Electrolytes are within normal range. Nonfasting blood sugar 138. Liver panel all within normal range. CT of the head showed no acute pathology, age indeterminate bilateral basal ganglia and right thalamic hemispheric ischemic infarct, chronic compared with the previous imaging studies from 2010. ASSESSMENT: 1. An 84-year-old female with bipolar disorder. 2. Profound psychosis with paranoia. 3. Probable old strokes found on CT. 4. Agitation relating to dementia. RECOMMENDATIONS: 1. The patient is stable from a medical standpoint. 2. I reviewed her medications. I do not recommend any changes for now. 3. We will try to minimize her sedation. Thank you again for asking me to see the patient for medical consultation. We should gladly follow along during the course of her admission. DELPHINE MCBRIDE MD DR: RJ/stevo JOB#: [id number] / [id number] antonietta Stafford Dr.
--- NOTE | 2020-01-29 12:15 | NUR ---
Patient refusing to come to lunch, states she is fasting for 12 hours. Tray placed in warmer cabinet, will continue to monitor.
--- NOTE | 2020-01-29 12:20 | HP ---
ADMIT DATE: 01/28/2020 ADMISSION HISTORY AND EVALUATION This is a late entry, January 27. I met with the patient evening of January 27, had lengthy telephone conversation with the patient's daughter evening of January 27. Reviewed past records from ICU where the patient had been an inpatient. Discussed with Cyndy Galarza, client coordinator, reviewed current and past records. IDENTIFYING DATA: The patient is an 84-year-old Afro-[place]and[place] female referred to us from ICU bed 4, [facility] by Dr. Stafford on account of increasingly manic symptoms, being hyperverbal, not eating for 4 days, paranoid. She was living alone at home, had made statement she wanted to and be with her . She had stopped her psychotropics for bipolar disorder. Over the past several weeks, behaviors have been worsening, dangerous potentially to herself, resulting in this referral. CHIEF COMPLAINT: "Sit down here. I have a lot to talk about." The patient is extremely hyperverbal, agitated, anxious, paranoid. HISTORY OF PRESENT ILLNESS: The patient has a long history of bipolar disorder. I had followed her as an outpatient about 20 years ago and she still seems to remember this. She has also had 1 psychiatric hospitalization at [facility] due to her bipolar manic symptoms and she was not happy with that stay. Recently, she stopped all her psychotropics that were being prescribed by Jet Davis, nurse practitioner at the [facility]. She has been manic, hyperverbal, paranoid with fleeting suicidal ideation, no plans, intent or attempt. She does have some short-term memory deficits. PAST PSYCHIATRIC HISTORY: As above. MEDICAL HISTORY: Hypothyroidism, hyperlipidemia, glaucoma, dehydration, arthritis. ACCU-CHEKS: None. CODE STATUS: FULL CODE. ALLERGIES: PENICILLIN. Ambulates with cane and walker. Takes medications whole. CURRENT PSYCHOTROPICS: Depakote ER 1000 mg at bedtime, Remeron 15 mg at bedtime, Klonopin 0.5 mg at bedtime p.r.n., Zyprexa was added p.r.n. psychosis, agitation post-admission. FAMILY HISTORY: Noncontributory. SOCIAL HISTORY: The patient lives alone at home. Her daughter lives in the [place] area about 30-40 miles from her. No alcohol or drug abuse, physical, sexual or elder abuse. She is not known to be a perpetrator. REACTION TO HOSPITALIZATION: The patient accepting of it. ASSETS: Supportive family. MENTAL STATUS EXAMINATION: The patient was seen individually evening of January 27. She is quite hyperverbal, difficult to redirect. Speech coherent, rapid at times. Abstraction fair, computation impaired, language function intact, attention span short. Mood and affect withdrawn at times and quite grandiose, overbearing at other times. No active suicidal or homicidal ideation. LABORATORY DATA: Reviewed. IMPRESSION: Bipolar disorder, manic with psychotic features, mild cognitive impairment; anxiety disorder, unspecified; impulse control disorder, unspecified. Rest as above. PLAN: Admit to Geropsychiatry Unit at [facility]. I will see the patient daily individually from a psychiatric standpoint. Medical followup with Dr. Stafford/Dr. Orr. Continue current psychotropics. Check a valproic acid level, adjust to reach therapeutic level. Consider adding Seroquel as a mood stabilizer, but we will ensure the Depakote is therapeutic before we do this. Estimated length of stay 10-12 days. DISPOSITION: Plan is possibly to a higher level of care, rather than returning home. MAN Lucian SHANNON MD DR: RAQUEL/stevo JOB#: [id number] / [id number]
[2020-01-29 14:48] LABS: THYROID STIM HORMONE (TSH) 21.004 uIU/mL (0.358-3.740)
[2020-01-29 16:00] VITALS: BP 129/67
--- NOTE | 2020-01-29 18:15 | NUR ---
Patient convinced another patient to give her the cordless phone. Staff informed patient she was not allowed to use the phone, she became agitated and threw the phone at staff. She was escorted to the [facility] [place], where she threw a plastic cup at the same staff member. She has been stating that she needs to use the restroom, but has refused to use the restroom in the quiet room. MD witnessed patient's tantrum and issued new orders. Will provide medications per eMAR, and report to oncoming staff.
[2020-01-29] MEDS: risperiDONE 0.5 MG TABLET. PO SCH ×2 (19:07→20:56)
[2020-01-29] MEDS: DIVALPROEX ER 500 MG TAB.ER.24H PO SCH (20:55)
[2020-01-29] MEDS: MIRTAZAPINE 15 MG TABLET PO SCH (20:56)
[2020-01-29] MEDS: SIMVASTATIN 20 MG TABLET PO SCH (20:56)
[2020-01-29] MEDS: LATANOPROST 0.005% OPHTH SOLUTION 2.5ML BOTTLE. OS SCH (20:56)
[2020-01-29] MEDS ORDERED: risperiDONE 0.25 MG TABLET. PO SCH (21:00)
--- NOTE | 2020-01-29 22:19 | PDOC ---
Exam Note: Epifanio Note: Please also refer to the separate dictated note~for this date of service dictated separately.~Patient seen individually. Discussed the patient with Nursing staff reviewed the chart.~Reviewed interim history and current functioning. Reviewed vital signs,~Labs/ Radiology~and current medications noted below. Continue current treatment with the changes noted in the dictated addendum note Assessment: Vital Signs/I&O: Vital Signs Date Time Temp Pulse Resp B/P (MAP) Pulse Ox O2 Delivery O2 Flow Rate FiO2 01/29/20 16:00 97.8 68 16 129/67 (87) 96 01/29/20 05:53 Room Air I & O 01/28/20 01/28/20 01/29/20 15:00 23:00 07:00 Intake Total 720 ml Balance 720 ml Labs: Laboratory Tests Test 01/29/20 06:22 White Blood Count 5.9 x10^3/uL (4.0-11.0) Red Blood Count 4.68 x10^6/uL (3.50-5.40) Hemoglobin 13.4 g/dL (12.0-15.5) Hematocrit 41.5 % (36.0-47.0) Mean Corpuscular Volume 89 fL (79-100) Mean Corpuscular Hemoglobin 29 pg (25-35) Mean Corpuscular Hemoglobin Concent 32 g/dL (31-37) Red Cell Distribution Width 14.8 % (11.5-14.5) H Platelet Count 194 x10^3/uL (140-400) Neutrophils (%) (Auto) 68 % (31-73) Lymphocytes (%) (Auto) 24 % (24-48) Monocytes (%) (Auto) 7 % (0-9) Eosinophils (%) (Auto) 2 % (0-3) Basophils (%) (Auto) 0 % (0-3) Neutrophils # (Auto) 4.0 x10^3uL (1.8-7.7) Lymphocytes # (Auto) 1.4 x10^3/uL (1.0-4.8) Monocytes # (Auto) 0.4 x10^3/uL (0.0-1.1) Eosinophils # (Auto) 0.1 x10^3/uL (0.0-0.7) Basophils # (Auto) 0.0 x10^3/uL (0.0-0.2) Sodium Level 144 mmol/L (136-145) Potassium Level 3.6 mmol/L (3.5-5.1) Chloride Level 108 mmol/L (98-107) H Carbon Dioxide Level 27 mmol/L (21-32) Anion Gap 9 (6-14) Blood Urea Nitrogen 18 mg/dL (7-20) Creatinine 1.0 mg/dL (0.6-1.0) Estimated GFR (Cockcroft-Gault) 52.8 BUN/Creatinine Ratio 18 (6-20) Glucose Level 133 mg/dL (70-99) H Calcium Level 8.9 mg/dL (8.5-10.1) Magnesium Level 1.9 mg/dL (1.8-2.4) Iron Level 57 ug/dL (50-170) Total Iron Binding Capacity 297 ug/dL (250-450) Iron Saturation 19 % (15-34) Total Bilirubin 0.2 mg/dL (0.2-1.0) Aspartate Amino Transferase (AST) 19 U/L (15-37) Alanine Aminotransferase (ALT) 33 U/L (14-59) Alkaline Phosphatase 62 U/L (46-116) Total Protein 6.9 g/dL (6.4-8.2) Albumin 3.1 g/dL (3.4-5.0) L Albumin/Globulin Ratio 0.8 (1.0-1.7) L Triglycerides Level 89 mg/dL (0-150) Cholesterol Level 205 mg/dL (0-200) H LDL Cholesterol, Calculated 125 mg/dL (0-100) H VLDL Cholesterol, Calculated 17 mg/dL (0-40) Non-HDL Cholesterol Calculated 142 mg/dL (0-129) H HDL Cholesterol 63 mg/dL (40-60) H Cholesterol/HDL Ratio 3.0 Vitamin B12 Level 780 pg/mL (247-911) 25-Hydroxy Vitamin D Total 28.7 ng/mL (30-100) L Thyroid Stimulating Hormone (TSH) 21.004 uIU/mL (0.358-3.740) Valproic Acid Level 64 mcg/mL (50-100) Valproic Acid Last Dose Date 01/28/20 Valproic Acid Last Dose Time 2100 Treponema pallidum Antibody Nonreactive (Nonreactive) Current Medications: Meds: Current Medications Medications (Trade) Dose Ordered Sig/Sariah Route PRN Reason Start Time Stop Time Status Last Admin Dose Admin Pantoprazole Sodium (Protonix) 40 mg DAILY PO 01/29/20 09:00 01/29/20 09:27 Risperidone (RisperDAL) 0.5 mg QHS PO 01/29/20 18:45 01/29/20 20:56 I have reviewed the current psychotropics carefully including drug interactions. Risk benefit ratio favors no change other than as noted in my dictated progress note. Diagnosis: Problems: (1) Anxiety disorder, unspecified (2) Impulse control disorder, unspecified (3) Bipolar disorder with psychotic features (4) Cognitive impairment SABRINA SHANNON MD Jan 29, 2020 22:19
[2020-01-30 00:07] LABS: HEMOGLOBIN A1C 5.6 % (4.8-5.6)
--- NOTE | 2020-01-30 02:43 | NUR ---
Nursing Note The patient was located in her room for her assessment and medication pass. The patient was calm and appropriate during interactions with this nurse. The patient took her medication whole but requested apple sauce with her larger pills. the patient is currently sleeping in her room.
[2020-01-30 06:42] VITALS: BP 111/73
[2020-01-30] MEDS: OMEGA-3 FATTY ACIDS/FISH OIL 1,000 MG CAPSULE. PO SCH ×3 (08:08→19:26)
[2020-01-30] MEDS: ASCORBIC ACID 500 MG TABLET PO SCH ×2 (08:08→19:26)
[2020-01-30] MEDS: cycloSPORINE 0.05% OPTH 1 DROP DROPERETTE OU SCH ×2 (08:08→19:26)
[2020-01-30] MEDS: PANTOPRAZOLE 40 MG TABLET. PO SCH (08:08)
[2020-01-30] MEDS: ASPIRIN CHEWABLE 81 MG TABLET. PO SCH (08:08)
[2020-01-30] MEDS: BRIMONIDINE 0.2% OPHTH SOLUTION 5ML BOTTLE. OS SCH ×3 (09:34→19:25)
[2020-01-30] MEDS: DORZOLAMIDE 2% OPHTH SOLUTION 10ML BOTTLE. OS SCH ×3 (09:34→19:25)
--- NOTE | 2020-01-30 09:36 | NUR ---
WEEKLY NOTE: Pt dtr, Dionna, participated tx team via telephone. Pt is agitated, labile mood and difficult to redirect. Pt threw the phone and a cup at staff; which landed pt in the [place] for a cool down period. Pt at this time will be dx with Bipolar disorder; not just based on her history but her behaviors (e.g. elia, hyperverbal). Pt dtr reports that pt has pretty much cut them off over the last few weeks and so they have sent over family friends to check on her. Pt will return home at the time of discharge with continued services through the [facility] and primary care physician.
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
[2020-01-30] MEDS: LEVOTHYROXINE 100 MCG TABLET PO SCH (11:55)
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
--- NOTE | 2020-01-30 15:16 | NUR ---
NOY received call from Dionna who wanted to follow up with SW on a few things from tx team. Dionna questioned if pt started on her Thyroid medication. In looking at pt report she received Thyroid medicine today, right before lunch. Dionna questioned how low exactly pt thyroid level was as she wrote down that it was mentioned in team that a low level could create problems as well. NOY looked and saw a high TSH level and NOY mentioned that but urged Dionna to speak with the nurse as that piece is out of her area of expertise. Dionna will follow up with the nursing staff so that they can explain pt TSH further. Dionna also informed NOY "You know social work is a small world and [place] is even smaller". Dionna reports that she was told by a close family friend that she spoke to someone who was a SW, not at [facility] and they told the family friend that pt was getting worse. Dionna did not mention names but did say that she was going to investigate further to see how another SW, who is not on her mother's case, would even know what was going on with her mother. She said it was not myself as her SW or Cyndy, the spa experience coordinator. But if she finds out that HIPAA has been violated, she will take further action. NOY wholeheartedly agreed and assured Dionna that no one here would speak out on pt care as it is a violation.
[2020-01-30 15:50] VITALS: BP 120/71
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
[2020-01-30] MEDS: LATANOPROST 0.005% OPHTH SOLUTION 2.5ML BOTTLE. OS SCH (19:25)
[2020-01-30] MEDS: SIMVASTATIN 20 MG TABLET PO SCH (19:26)
[2020-01-30] MEDS: MIRTAZAPINE 15 MG TABLET PO SCH (21:00)
[2020-01-30] MEDS: DIVALPROEX ER 500 MG TAB.ER.24H PO SCH (21:00)
[2020-01-30] MEDS: risperiDONE 0.25 MG TABLET. PO SCH (21:00)
--- NOTE | 2020-01-30 22:15 | PDOC ---
Exam Note: Epifanio Note: Please also refer to the separate dictated note~for this date of service dictated separately.~Patient seen individually. Discussed the patient with Nursing staff reviewed the chart.~Reviewed interim history and current functioning. Reviewed vital signs,~Labs/ Radiology~and current medications noted below. Continue current treatment with the changes noted in the dictated addendum note Assessment: Vital Signs/I&O: Vital Signs Date Time Temp Pulse Resp B/P (MAP) Pulse Ox O2 Delivery O2 Flow Rate FiO2 01/30/20 15:50 97.4 89 19 120/71 (87) 95 Room Air I & O 01/29/20 01/29/20 01/30/20 14:59 22:59 06:59 Intake Total 360 ml 240 ml 360 ml Balance 360 ml 240 ml 360 ml Current Medications: Meds: Current Medications Medications (Trade) Dose Ordered Sig/Sariah Route PRN Reason Start Time Stop Time Status Last Admin Dose Admin Levothyroxine Sodium (Synthroid) 100 mcg DAILY06 PO 01/30/20 11:00 01/30/20 11:55 I have reviewed the current psychotropics carefully including drug interactions. Risk benefit ratio favors no change other than as noted in my dictated progress note. Diagnosis: Problems: (1) Cognitive impairment (2) Bipolar disorder with psychotic features (3) Impulse control disorder, unspecified (4) Anxiety disorder, unspecified SABRINA SHANNON MD Jan 30, 2020 22:15
[2020-01-31 01:07] LABS: THYROXINE 3.9 ug/dL (4.5-12.0)
--- NOTE | 2020-01-31 02:48 | NUR ---
Nursing Note The patient was very resistive, verbally abusive and loud this shift. The patient has accused all staff this shift of being racist and claims that "all of you white people call us ..... [n word] behind our backs and shoot our black men." The patient claims that she can see the future and calls herself prophetess. The patient insulted one of our female staff members calling her fat and ugly. The patient is currently sitting in her doorway reading the bible. The patient refused all cares and medication this shift.
[2020-01-31 06:25] VITALS: BP 152/76
[2020-01-31] MEDS: LEVOTHYROXINE 100 MCG TABLET PO SCH (06:38)
[2020-01-31] MEDS: ASPIRIN CHEWABLE 81 MG TABLET. PO SCH ×2 (08:00→12:18)
[2020-01-31] MEDS: BRIMONIDINE 0.2% OPHTH SOLUTION 5ML BOTTLE. OS SCH ×3 (08:49→21:14)
[2020-01-31] MEDS: OMEGA-3 FATTY ACIDS/FISH OIL 1,000 MG CAPSULE. PO SCH ×3 (08:49→21:14)
[2020-01-31] MEDS: DORZOLAMIDE 2% OPHTH SOLUTION 10ML BOTTLE. OS SCH ×3 (08:49→21:14)
[2020-01-31] MEDS: cycloSPORINE 0.05% OPTH 1 DROP DROPERETTE OU SCH ×2 (08:49→21:15)
[2020-01-31] MEDS: PANTOPRAZOLE 40 MG TABLET. PO SCH ×2 (08:50→12:18)
[2020-01-31] MEDS: ASCORBIC ACID 500 MG TABLET PO SCH ×3 (08:50→21:14)
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
--- NOTE | 2020-01-31 10:39 | NUR ---
Pt has been calm in secure hallway, RN asked patient x3 if she was ready to talk. Pt will not answer RN. Pt sitting in chair, head on hand. Pt is alert. WCTM.
--- NOTE | 2020-01-31 13:00 | NUR ---
1140- Patient still calm, RN asked if she was ready to leave the hallway. Pt replied "yes". Pt is pleasant, asking when lunch is. 1215- Pt calmly eating lunch, RN was able to give patient her medications. Pt is pleasant, patient and cooperative.
[2020-01-31 13:38] VITALS: BP 136/80
--- NOTE | 2020-01-31 14:32 | NUR ---
1320- Pt complaining of chest palpitations. States she can feel her heart beating fast. Vitals obtained, WNL. Pulse is regular. Pt stated she just needed 5 minutes to herself. 1340- Pt stating she is nauseas and that sprite helps, pt given a lemon lytton soda. Pt states she is ok, just a little dizzy and wanted to rest. States that she will call if she needs anything. 1410- Pt came out stating she needed to go to the medical unit. EKG ordered and is NSR. No indication that patient is actively having any heart issues. Pt resting in room.
[2020-01-31 15:36] VITALS: BP 119/76
[2020-01-31] MEDS ORDERED: traZODone 50 MG TABLET. PO PRN (16:30)
[2020-01-31] MEDS: risperiDONE 0.25 MG TABLET. PO SCH (17:28)
[2020-01-31] MEDS: DIVALPROEX ER 500 MG TAB.ER.24H PO SCH (17:28)
[2020-01-31] MEDS: MIRTAZAPINE 15 MG TABLET PO SCH (21:13)
[2020-01-31] MEDS: LATANOPROST 0.005% OPHTH SOLUTION 2.5ML BOTTLE. OS SCH (21:14)
[2020-01-31] MEDS: traZODone 50 MG TABLET. PO SCH (21:14)
[2020-01-31] MEDS: SIMVASTATIN 20 MG TABLET PO SCH (21:14)
--- NOTE | 2020-01-31 22:17 | PDOC ---
Exam Note: Epifanio Note: Please also refer to the separate dictated note~for this date of service dictated separately.~Patient seen individually. Discussed the patient with Nursing staff reviewed the chart.~Reviewed interim history and current functioning. Reviewed vital signs,~Labs/ Radiology~and current medications noted below. Continue current treatment with the changes noted in the dictated addendum note Assessment: Vital Signs/I&O: Vital Signs Date Time Temp Pulse Resp B/P (MAP) Pulse Ox O2 Delivery O2 Flow Rate FiO2 01/31/20 15:36 97.4 80 18 119/76 (90) 98 01/31/20 13:38 Room Air I & O 01/30/20 01/30/20 01/31/20 15:00 23:00 07:00 Intake Total 720 ml 360 ml 360 ml Balance 720 ml 360 ml 360 ml Labs: Laboratory Tests Test 01/31/20 17:35 Troponin I Quantitative 0.018 ng/mL (0-0.055) Current Medications: Meds: Current Medications Medications (Trade) Dose Ordered Sig/Sariah Route PRN Reason Start Time Stop Time Status Last Admin Dose Admin Trazodone HCl (Desyrel) 50 mg QHS PO 01/31/20 21:00 01/31/20 21:14 I have reviewed the current psychotropics carefully including drug interactions. Risk benefit ratio favors no change other than as noted in my dictated progress note. Diagnosis: Problems: (1) Cognitive impairment (2) Bipolar disorder with psychotic features (3) Impulse control disorder, unspecified (4) Anxiety disorder, unspecified SABRINA SHANNON MD Jan 31, 2020 22:17
--- NOTE | 2020-02-01 01:50 | NUR ---
Nursing Note The patient has been calm and compliant this shift and took all of her medications whole. The patient has apologized for her behaviors on the last mini shifter. The patient is currently sleeping in her room.
[2020-02-01] MEDS: LEVOTHYROXINE 100 MCG TABLET PO SCH (05:50)
[2020-02-01 06:44] VITALS: BP 116/71
--- NOTE | 2020-02-01 07:11 | PDOC ---
Exam Note: Epifanio Note: This note is a late entry for 01/29/2020 covers elements not covered in my initial note. Subjective: The patient was seen individually in the evening of 01/29/2020. Per Donnell LANDAVERDE, slept 1-3/4 hours previous night. She put herself on the floor twice the previous night. Vitamin D is low. TSH is elevated at 21, will defer to Dr. Orr for management. Apparently, the patient has not been taking Synthroid at home as she has stopped all her medications. I did talk with Donnell LANDAVERDE who contacted the pharmacy and got a list of her psychotropic medications and from her outpatient providers as well. Valproic acid level is 64. She is somewhat obsessive, and having ritualistic behaviors of washing her hands and drying them three times in succession. She has been delusional, paranoid, manipulative, states she is going to go on a 12-hour fast till 12.30 beyond midnight. Review of Systems: No CV, , pulmonary, eye system symptoms on review. Gait unsteady with walker. Mental Status Exam: The patient is reasonably oriented. Speech is coherent, rapid. She is quite domineering. I met with her individually. She wanted to meet with me at length individually in her room and we met later again. Abs traction is fair. Computation is impaired. Language function is intact. Attention span short. No active suicidal or homicidal ideation. She remains quite suspicious, paranoid that people are stealing her belongings. Laboratory Data: Reviewed. Impression: Bipolar disorder manic with psychotic features versus mixed with psychotic features. Mild cognitive impairment. Anxiety disorder unspecified. Impulse control disorder unspecified. Plan: Continue Depakote ER 1000 mg h.s. Level is therapeutic at 64. Stop the Zyprexa IM p.r.n. Start Risperdal 0.5 mg h.s. Maintain Klonopin 0.5 mg h.s. p.r.n., Zyprexa p.r.n. The patient is insistent on being discharged. She has been admitted by her daughter who is her power of tax attorney. I have talked to the patients daughter and her daughter is wanting her to continue in treatment here since the patient lives alone by herself, has been totally non-compliant with family and interventions for her well being. Assessment: Vital Signs/I&O: Vital Signs Date Time Temp Pulse Resp B/P (MAP) Pulse Ox O2 Delivery O2 Flow Rate FiO2 02/01/20 06:44 98.2 78 16 116/71 (86) 100 01/31/20 13:38 Room Air I & O 01/31/20 01/31/20 02/01/20 14:59 22:59 06:59 Intake Total 600 ml 900 ml Balance 600 ml 900 ml Labs: Laboratory Tests Test 01/31/20 17:35 Troponin I Quantitative 0.018 ng/mL (0-0.055) Current Medications: Meds: Current Medications Medications (Trade) Dose Ordered Sig/Sariah Route PRN Reason Start Time Stop Time Status Last Admin Dose Admin Trazodone HCl (Desyrel) 50 mg QHS PO 01/31/20 21:00 01/31/20 21:14 I have reviewed the current psychotropics carefully including drug interactions. Risk benefit ratio favors no change other than as noted in my dictated progress note. Diagnosis: Problems: (1) Cognitive impairment (2) Bipolar disorder with psychotic features (3) Impulse control disorder, unspecified (4) Anxiety disorder, unspecified SABRINA SHANNON MD Feb 01, 2020 07:10
--- NOTE | 2020-02-01 07:36 | PDOC ---
Exam Note: Epifanio Note: This note is a late entry for 01/30/2020 covers elements not covered in my initial note. Subjective: The patient was seen individually in the morning of 01/30/2020 with treatment team meeting with Emy (social service staff), [facility] staff along with Dionna, meg daughter attending. We had a very lengthy discussion about the patients diagnoses, noncompliance with treatment, demanding to leave, paranoia, feeling people are stealing for her. We offered the daughter that she could discharge the patient if that is what the family decided to do following the patients wishes but the daughter was quite clear that patient needed help and assistance, adjustments in her psychotropics for the bipolar disorder and we discussed the diagnoses at some length the symptoms and history about this. She has been agitated, irritable, labile, threw stuff on the floor, refused lunch. I had several messages with [facility] social service staff as well in the evening, the patient made statements that she had fired me. However, when I went to meet the patient in the evening, she was demanding to talk to me in her room with the door shut and talked for an extensive period of time, jumping from subject to subject, disorganized, paranoid, still wanting to leave and I will defer to the family to make a deci javon on this with the patient. I feel the patient would benefit from stabilization of her psychotropics but I will follow the familys wishes in this respect. Review of Systems: Ambulation impaired. No CV, , pulmonary, eye system symptoms on review. Mental Status Exam: Oriented to herself and situation. Speech is coherent, rapid, loud at times, quite domineering. Memory is reasonable. Abstraction is fair. Computation is impaired. Language function is intact. Attention span short. Mood and affect labile. Laboratory Data: Reviewed. Impression: Bipolar disorder manic with psychotic features. Mild cognitive impairment. Anxiety disorder unspecified. Impulse control disorder unspecified. Plan: Lora manager social media will do a mini-mental status exam. We will consider having neuropsychological testing with Dr. Pickens to consider capacity to make decisions for herself. Maintain Depakote ER 1000 mg h.s., Risperdal 0.5 mg h.s., Remeron 15 mg h.s., Zyprexa and Klonopin p.r.n., Risperdal 0.5 mg h.s. Adjust further as clinically indicated. Assessment: Vital Signs/I&O: Vital Signs Date Time Temp Pulse Resp B/P (MAP) Pulse Ox O2 Delivery O2 Flow Rate FiO2 02/01/20 06:44 98.2 78 16 116/71 (86) 100 01/31/20 13:38 Room Air I & O 01/31/20 01/31/20 02/01/20 15:00 23:00 07:00 Intake Total 600 ml 900 ml Balance 600 ml 900 ml Labs: Laboratory Tests Test 01/31/20 17:35 Troponin I Quantitative 0.018 ng/mL (0-0.055) Current Medications: Meds: Current Medications Medications (Trade) Dose Ordered Sig/Sariah Route PRN Reason Start Time Stop Time Status Last Admin Dose Admin Trazodone HCl (Desyrel) 50 mg QHS PO 01/31/20 21:00 01/31/20 21:14 I have reviewed the current psychotropics carefully including drug interactions. Risk benefit ratio favors no change other than as noted in my dictated progress note. Diagnosis: Problems: (1) Cognitive impairment (2) Bipolar disorder with psychotic features (3) Impulse control disorder, unspecified (4) Anxiety disorder, unspecified SABRINA SHANNON MD Feb 01, 2020 07:36
[2020-02-01] MEDS: cycloSPORINE 0.05% OPTH 1 DROP DROPERETTE OU SCH ×2 (08:33→21:00)
[2020-02-01] MEDS: ASPIRIN CHEWABLE 81 MG TABLET. PO SCH (08:33)
[2020-02-01] MEDS: BRIMONIDINE 0.2% OPHTH SOLUTION 5ML BOTTLE. OS SCH ×3 (08:33→21:11)
[2020-02-01] MEDS: ASCORBIC ACID 500 MG TABLET PO SCH ×2 (08:35→21:11)
[2020-02-01] MEDS: PANTOPRAZOLE 40 MG TABLET. PO SCH (08:35)
[2020-02-01] MEDS: DORZOLAMIDE 2% OPHTH SOLUTION 10ML BOTTLE. OS SCH ×3 (08:35→21:11)
[2020-02-01] MEDS: DIVALPROEX ER 500 MG TAB.ER.24H PO SCH (08:35)
[2020-02-01] MEDS: OMEGA-3 FATTY ACIDS/FISH OIL 1,000 MG CAPSULE. PO SCH ×3 (08:35→21:11)
[2020-02-01] MEDS: risperiDONE 0.25 MG TABLET. PO SCH (08:36)
[2020-02-01 10:29] LABS: BASO % 0 % (0-3); EOS # 0.1 x10^3/uL (0.0-0.7); EOS % 2 % (0-3); HEMATOCRIT 42.1 % (36.0-47.0); HEMOGLOBIN 13.7 g/dL (12.0-15.5); LYMPH # 1.3 x10^3/uL (1.0-4.8); LYMPH % 29 % (24-48); MEAN CORPUSCULAR HEMOGLOBIN 29 pg (25-35); MEAN CORPUSCULAR HGB CONC 33 g/dL (31-37); MEAN CORPUSCULAR VOLUME 89 fL (79-100); MONO # 0.4 x10^3/uL (0.0-1.1); MONO % 9 % (0-9); NEUT # 2.8 x10^3uL (1.8-7.7); NEUT % 60 % (31-73); PLATELET COUNT 172 x10^3/uL (140-400); RED BLOOD COUNT 4.75 x10^6/uL (3.50-5.40); RED CELL DISTRIBUTION WIDTH 14.9 % (11.5-14.5); WHITE BLOOD COUNT 4.6 x10^3/uL (4.0-11.0)
[2020-02-01 10:42] LABS: ALBUMIN 3.3 g/dL (3.4-5.0); ALBUMIN/GLOBULIN RATIO 0.9 (1.0-1.7); CALCIUM 9.2 mg/dL (8.5-10.1); GFR 52.8; POTASSIUM 3.7 mmol/L (3.5-5.1); TOTAL BILIRUBIN 0.3 mg/dL (0.2-1.0); TOTAL PROTEIN 7.1 g/dL (6.4-8.2)
--- NOTE | 2020-02-01 11:27 | NUR ---
0915 Pt c/o "I'm having chest pain and shortness of breath." Upon assessment pt was able to have a conversation with the nurse with no distress, her skin color was appropriate for her race, her nail beds and mucous membranes had good color. Pt was able to follow commands. VS: 139/74, 102. Pt able to ambulate to her room unassisted. STAT CBC, CMP, CKMB, troponin, and 12 lead EKG ordered. All came back within normal limits. When educating the pt about anxiety, and GERD as pt had just eaten when her chest pain started. Nurse asked pt if she still had chest pain, pt stated "what does it matter."
--- NOTE | 2020-02-01 11:50 | NUR ---
Pts daughter called asking if she could bring the pt her personal tablet so she can watch her cellars supervisor on YouTube. Nurse explained personal electronics policy to pts daughter and also told pts daughter that she can put her in touch with Tuyet the news director who will be here Monday or Monday who can assist her with possibly getting access to her personal cellars supervisor's video's. Pts daughter stated she was just trying to stay ahead of this problem as these videos are important to the pt. Nurse again reminded the pts daughter Tuyet can assist her as nurses do not have the availability to download things to the WebNotes. Daughter asked who her mothers nurse would be this and Monday. Nurse explained that it would most likely her herself however, the daily assignments are made in the morning.
--- NOTE | 2020-02-01 12:12 | NUR ---
This morning pt has been tangential and had flight of ideas for example pt did not think she got exactly what her diet called for, after nurse explained to her and showed her the "ADA" writing on her meal ticket pt continued to be fixated on this and ask staff to call the kitchen and straighten it out. When lab came to draw pts blood this am she stated that she had to contact to diamond broker to get her out of here because her daughter put her here and she wasn't supposed to. However, pt is compliant with he medication and assessment. No HI or SI at this time.
[2020-02-01 15:59] VITALS: BP 122/78
--- NOTE | 2020-02-01 16:30 | NUR ---
During rounds pt asked about her blood draw from this morning. Nurse explained during their conversation this morning she was trying to assess when her symptoms normally occurred such as after eating, like today. Pt stated that she usually gets "chest pain like today." After today eating and if "I drink 7 up 30 minutes I eat I won't get heartburn." Nurse informed pt she will let staff know.
[2020-02-01] MEDS: traZODone 50 MG TABLET. PO SCH (21:11)
[2020-02-01] MEDS: SIMVASTATIN 20 MG TABLET PO SCH (21:11)
[2020-02-01] MEDS: MIRTAZAPINE 15 MG TABLET PO SCH (21:11)
[2020-02-01] MEDS: LATANOPROST 0.005% OPHTH SOLUTION 2.5ML BOTTLE. OS SCH (21:11)
--- NOTE | 2020-02-01 22:15 | PDOC ---
Exam Note: Epifanio Note: Please also refer to the separate dictated note~for this date of service dictated separately.~Patient seen individually. Discussed the patient with Nursing staff reviewed the chart.~Reviewed interim history and current functioning. Reviewed vital signs,~Labs/ Radiology~and current medications noted below. Continue current treatment with the changes noted in the dictated addendum note Assessment: Vital Signs/I&O: Vital Signs Date Time Temp Pulse Resp B/P (MAP) Pulse Ox O2 Delivery O2 Flow Rate FiO2 02/01/20 15:59 98.6 93 18 122/78 (93) 100 01/31/20 13:38 Room Air I & O 01/31/20 01/31/20 02/01/20 15:00 23:00 07:00 Intake Total 600 ml 900 ml Balance 600 ml 900 ml Labs: Laboratory Tests Test 02/01/20 10:15 White Blood Count 4.6 x10^3/uL (4.0-11.0) Red Blood Count 4.75 x10^6/uL (3.50-5.40) Hemoglobin 13.7 g/dL (12.0-15.5) Hematocrit 42.1 % (36.0-47.0) Mean Corpuscular Volume 89 fL (79-100) Mean Corpuscular Hemoglobin 29 pg (25-35) Mean Corpuscular Hemoglobin Concent 33 g/dL (31-37) Red Cell Distribution Width 14.9 % (11.5-14.5) H Platelet Count 172 x10^3/uL (140-400) Neutrophils (%) (Auto) 60 % (31-73) Lymphocytes (%) (Auto) 29 % (24-48) Monocytes (%) (Auto) 9 % (0-9) Eosinophils (%) (Auto) 2 % (0-3) Basophils (%) (Auto) 0 % (0-3) Neutrophils # (Auto) 2.8 x10^3uL (1.8-7.7) Lymphocytes # (Auto) 1.3 x10^3/uL (1.0-4.8) Monocytes # (Auto) 0.4 x10^3/uL (0.0-1.1) Eosinophils # (Auto) 0.1 x10^3/uL (0.0-0.7) Basophils # (Auto) 0.0 x10^3/uL (0.0-0.2) Sodium Level 143 mmol/L (136-145) Potassium Level 3.7 mmol/L (3.5-5.1) Chloride Level 107 mmol/L (98-107) Carbon Dioxide Level 30 mmol/L (21-32) Anion Gap 6 (6-14) Blood Urea Nitrogen 12 mg/dL (7-20) Creatinine 1.0 mg/dL (0.6-1.0) Estimated GFR (Cockcroft-Gault) 52.8 BUN/Creatinine Ratio 12 (6-20) Glucose Level 91 mg/dL (70-99) Calcium Level 9.2 mg/dL (8.5-10.1) Total Bilirubin 0.3 mg/dL (0.2-1.0) Aspartate Amino Transferase (AST) 22 U/L (15-37) Alanine Aminotransferase (ALT) 32 U/L (14-59) Alkaline Phosphatase 67 U/L (46-116) Creatine Kinase 202 U/L (26-192) H Troponin I Quantitative < 0.017 ng/mL (0-0.055) Total Protein 7.1 g/dL (6.4-8.2) Albumin 3.3 g/dL (3.4-5.0) L Albumin/Globulin Ratio 0.9 (1.0-1.7) L Current Medications: I have reviewed the current psychotropics carefully including drug interactions. Risk benefit ratio favors no change other than as noted in my dictated progress note. Diagnosis: Problems: (1) Cognitive impairment (2) Bipolar disorder with psychotic features (3) Impulse control disorder, unspecified (4) Anxiety disorder, unspecified SABRINA SHANNON MD Feb 01, 2020 22:15
--- NOTE | 2020-02-01 23:52 | NUR ---
Nursing Note The patient was located in her room for her assessment and medication pass. The patient was compliant with her medication and assessment. The patient made several statements that she would report this hospital and also that she is going to [facility] this hospital. The patient becomes irritable when she sees other patients receiving cares and attention and she is not. The patient is currently located in her room.
[2020-02-02] MEDS: LEVOTHYROXINE 100 MCG TABLET PO SCH (05:42)
--- NOTE | 2020-02-02 07:15 | PDOC ---
Exam Note: Epifanio Note: This note is a late entry for 01/31/2020 covers elements not covered in my initial note. Subjective: The patient was seen individually in the evening 01/31/2020. Per Guanako LANDAVERDE, she refused her h.s. medications, accusing staff of being racist and nursing staff described the patient is being a mess. She has been paranoid, demeaning of staff, threatening staff, suspicious, threw her walker down in the morning. Review of Systems: Ambulation impaired with walker. No CV, , pulmonary, eye system symptoms on review. She can certainly hear reasonably but making out she cannot hear, wanting people to write to her or talk loudly. Mental Status Exam: Oriented to herself and situation. Speech is coherent, leas pressured. Abstraction is fair. Computation is impaired. Language function is intact. Attention span short. Mood and affect somewhat grandiose, labile. Laboratory Data: Reviewed. Impression: Bipolar disorder 1 disorder manic with psychotic features. Mild cognitive impairment. Anxiety disorder unspecified. Impulse control disorder unspecified. Plan: We had a lengthy discussion and agreed to add trazodone 50 mg h.s. p.r.n. may repeat x1 for insomnia, Risperdal 0.75 mg h.s. but can be given at any time of the day that she takes it. Continue Depakote ER 1000 mg h.s. Check labs level. Adjust further as clinically indicated. She has been restarted on Synthroid 100 mcg per day per Dr. Orr. Assessment: Vital Signs/I&O: Vital Signs Date Time Temp Pulse Resp B/P (MAP) Pulse Ox O2 Delivery O2 Flow Rate FiO2 02/01/20 15:59 98.6 93 18 122/78 (93) 100 01/31/20 13:38 Room Air I & O 02/01/20 02/01/20 02/02/20 15:00 23:00 07:00 Intake Total 480 ml 660 ml Balance 480 ml 660 ml Labs: Laboratory Tests Test 02/01/20 10:15 White Blood Count 4.6 x10^3/uL (4.0-11.0) Red Blood Count 4.75 x10^6/uL (3.50-5.40) Hemoglobin 13.7 g/dL (12.0-15.5) Hematocrit 42.1 % (36.0-47.0) Mean Corpuscular Volume 89 fL (79-100) Mean Corpuscular Hemoglobin 29 pg (25-35) Mean Corpuscular Hemoglobin Concent 33 g/dL (31-37) Red Cell Distribution Width 14.9 % (11.5-14.5) H Platelet Count 172 x10^3/uL (140-400) Neutrophils (%) (Auto) 60 % (31-73) Lymphocytes (%) (Auto) 29 % (24-48) Monocytes (%) (Auto) 9 % (0-9) Eosinophils (%) (Auto) 2 % (0-3) Basophils (%) (Auto) 0 % (0-3) Neutrophils # (Auto) 2.8 x10^3uL (1.8-7.7) Lymphocytes # (Auto) 1.3 x10^3/uL (1.0-4.8) Monocytes # (Auto) 0.4 x10^3/uL (0.0-1.1) Eosinophils # (Auto) 0.1 x10^3/uL (0.0-0.7) Basophils # (Auto) 0.0 x10^3/uL (0.0-0.2) Sodium Level 143 mmol/L (136-145) Potassium Level 3.7 mmol/L (3.5-5.1) Chloride Level 107 mmol/L (98-107) Carbon Dioxide Level 30 mmol/L (21-32) Anion Gap 6 (6-14) Blood Urea Nitrogen 12 mg/dL (7-20) Creatinine 1.0 mg/dL (0.6-1.0) Estimated GFR (Cockcroft-Gault) 52.8 BUN/Creatinine Ratio 12 (6-20) Glucose Level 91 mg/dL (70-99) Calcium Level 9.2 mg/dL (8.5-10.1) Total Bilirubin 0.3 mg/dL (0.2-1.0) Aspartate Amino Transferase (AST) 22 U/L (15-37) Alanine Aminotransferase (ALT) 32 U/L (14-59) Alkaline Phosphatase 67 U/L (46-116) Creatine Kinase 202 U/L (26-192) H Troponin I Quantitative < 0.017 ng/mL (0-0.055) Total Protein 7.1 g/dL (6.4-8.2) Albumin 3.3 g/dL (3.4-5.0) L Albumin/Globulin Ratio 0.9 (1.0-1.7) L Current Medications: I have reviewed the current psychotropics carefully including drug interactions. Risk benefit ratio favors no change other than as noted in my dictated progress note. Diagnosis: Problems: (1) Cognitive impairment (2) Bipolar disorder with psychotic features (3) Impulse control disorder, unspecified (4) Anxiety disorder, unspecified SABRINA SHANNON MD Feb 02, 2020 07:15
--- NOTE | 2020-02-02 07:36 | PDOC ---
Exam Note: Epifanio Note: This note is a late entry for 02/01/2020 covers elements not covered in my initial note. Subjective: The patient was seen individually in the evening of 02/01/2020. Per Melissa LANDAVERDE she slept 7-1/2 hours previous night. She was compliant previous night. She took her Depakote and Risperdal, somewhat tangential, grandiose this morning. I met with her at length in her room. Later she wanted to meet with me again. Ten days she could not hear at all. I had to write extensively on paper. She wanted to know when she could be discharged. Nursing staff Melissa have contacted patients daughter Dionna and Dionna has to call back to talk to the patient and certainly if the family decides to transition her home to outpatient treatment we will go ahead with this. She is not actively suicidal or homicidal but does remain paranoid. She wanted Sprite and extra drink and Augusta LANDAVERDE brought it for her. She was initially not drinking it because of p aranoia but later did drink it. She has complained of chest pain, workup twice per Dr. Orr has been negative. I will defer to Dr. Orr with questionable GERD symptoms. She continues to insist she is not incapacitated. Review of Systems: She is hard of hearing. Ambulation impaired with walker. No CV, , pulmonary, eye system symptoms on review. Mental Status Exam: Oriented to herself and situation. Speech is coherent, pressured. Abstraction is fair. Computation is impaired. Language function is intact. Attention span short. Mood and affect remains somewhat grandiose. Laboratory Data: Reviewed. Impression: Bipolar 1 disorder manic with psychotic features. Mild cognitive impairment. Anxiety disorder unspecified. Impulse control disorder unspe cified. Plan: Continue psychotropics from initial note. Trazodone has been added for insomnia. Depakote is a mood stabilizer. Risperdal is an atypical antipsychotic for her bipolar disorder with psychotic features. Rest unchanged for now. Assessment: Vital Signs/I&O: Vital Signs Date Time Temp Pulse Resp B/P (MAP) Pulse Ox O2 Delivery O2 Flow Rate FiO2 02/01/20 15:59 98.6 93 18 122/78 (93) 100 01/31/20 13:38 Room Air I & O 6/27/20 6/27/20 6/28/20 15:00 23:00 07:00 Intake Total 480 ml 660 ml Balance 480 ml 660 ml Labs: Laboratory Tests Test 02/01/20 10:15 White Blood Count 4.6 x10^3/uL (4.0-11.0) Red Blood Count 4.75 x10^6/uL (3.50-5.40) Hemoglobin 13.7 g/dL (12.0-15.5) Hematocrit 42.1 % (36.0-47.0) Mean Corpuscular Volume 89 fL (79-100) Mean Corpuscular Hemoglobin 29 pg (25-35) Mean Corpuscular Hemoglobin Concent 33 g/dL (31-37) Red Cell Distribution Width 14.9 % (11.5-14.5) H Platelet Count 172 x10^3/uL (140-400) Neutrophils (%) (Auto) 60 % (31-73) Lymphocytes (%) (Auto) 29 % (24-48) Monocytes (%) (Auto) 9 % (0-9) Eosinophils (%) (Auto) 2 % (0-3) Basophils (%) (Auto) 0 % (0-3) Neutrophils # (Auto) 2.8 x10^3uL (1.8-7.7) Lymphocytes # (Auto) 1.3 x10^3/uL (1.0-4.8) Monocytes # (Auto) 0.4 x10^3/uL (0.0-1.1) Eosinophils # (Auto) 0.1 x10^3/uL (0.0-0.7) Basophils # (Auto) 0.0 x10^3/uL (0.0-0.2) Sodium Level 143 mmol/L (136-145) Potassium Level 3.7 mmol/L (3.5-5.1) Chloride Level 107 mmol/L (98-107) Carbon Dioxide Level 30 mmol/L (21-32) Anion Gap 6 (6-14) Blood Urea Nitrogen 12 mg/dL (7-20) Creatinine 1.0 mg/dL (0.6-1.0) Estimated GFR (Cockcroft-Gault) 52.8 BUN/Creatinine Ratio 12 (6-20) Glucose Level 91 mg/dL (70-99) Calcium Level 9.2 mg/dL (8.5-10.1) Total Bilirubin 0.3 mg/dL (0.2-1.0) Aspartate Amino Transferase (AST) 22 U/L (15-37) Alanine Aminotransferase (ALT) 32 U/L (14-59) Alkaline Phosphatase 67 U/L (46-116) Creatine Kinase 202 U/L (26-192) H Troponin I Quantitative < 0.017 ng/mL (0-0.055) Total Protein 7.1 g/dL (6.4-8.2) Albumin 3.3 g/dL (3.4-5.0) L Albumin/Globulin Ratio 0.9 (1.0-1.7) L Current Medications: I have reviewed the current psychotropics carefully including drug interactions. Risk benefit ratio favors no change other than as noted in my dictated progress note. Diagnosis: Problems: (1) Cognitive impairment (2) Bipolar disorder with psychotic features (3) Impulse control disorder, unspecified (4) Anxiety disorder, unspecified SABRINA SHANNON MD Feb 02, 2020 07:36
[2020-02-02] MEDS: cycloSPORINE 0.05% OPTH 1 DROP DROPERETTE OU SCH ×2 (08:07→20:33)
[2020-02-02] MEDS: OMEGA-3 FATTY ACIDS/FISH OIL 1,000 MG CAPSULE. PO SCH ×3 (08:07→20:33)
[2020-02-02] MEDS: DORZOLAMIDE 2% OPHTH SOLUTION 10ML BOTTLE. OS SCH ×3 (08:07→20:32)
[2020-02-02] MEDS: ASPIRIN CHEWABLE 81 MG TABLET. PO SCH (08:07)
[2020-02-02] MEDS: PANTOPRAZOLE 40 MG TABLET. PO SCH (08:07)
[2020-02-02] MEDS: ASCORBIC ACID 500 MG TABLET PO SCH ×2 (08:07→20:33)
[2020-02-02] MEDS: BRIMONIDINE 0.2% OPHTH SOLUTION 5ML BOTTLE. OS SCH ×3 (08:07→20:33)
[2020-02-02] MEDS: risperiDONE 0.25 MG TABLET. PO SCH (08:07)
[2020-02-02] MEDS: DIVALPROEX ER 500 MG TAB.ER.24H PO SCH (08:08)
--- NOTE | 2020-02-02 08:11 | NUR ---
Pt will not answer nurses questions or engage in conversation with staff or peers. Pt will demand things from staff for example: during medication administration when nurse placed pills in front of pt and explained she was getting her eye drops ready pt stated "I need my restasis now, I have an eyelash in my eye." " I'll put the drops in myself." Pt was given 7 up prior to breakfast per her request yesterday.
--- NOTE | 2020-02-02 13:18 | NUR ---
Pts daughter reports pt enjoys listening and watching the live streams from her baptism every Monday @ 0900 and Monday @ 1800 by [employer] on [employer] as well as his other teachings he records and posts.
[2020-02-02 16:32] VITALS: BP 118/73
[2020-02-02] MEDS: MIRTAZAPINE 15 MG TABLET PO SCH (20:33)
[2020-02-02] MEDS: traZODone 50 MG TABLET. PO SCH (20:33)
[2020-02-02] MEDS: LATANOPROST 0.005% OPHTH SOLUTION 2.5ML BOTTLE. OS SCH (20:33)
[2020-02-02] MEDS: SIMVASTATIN 20 MG TABLET PO SCH (20:33)
--- NOTE | 2020-02-02 22:00 | NUR ---
Patient is in her room on assumption of care. She is flat, but compliant with medications. Keeps asking "When do I get phone privileges, I want to talk to Dionna." This nurse passed on to her that according to day shift nurse, Dionna would call tomorrow after patient watches her appiris dollar video. Patient was not happy with that answer but did accept it. No agitation. Patient denies any pain or discomfort. Denies SI.
--- NOTE | 2020-02-02 22:21 | PDOC ---
Exam Note: Epifanio Note: Please also refer to the separate dictated note~for this date of service dictated separately.~Patient seen individually. Discussed the patient with Nursing staff reviewed the chart.~Reviewed interim history and current functioning. Reviewed vital signs,~Labs/ Radiology~and current medications noted below. Continue current treatment with the changes noted in the dictated addendum note Assessment: Vital Signs/I&O: Vital Signs Date Time Temp Pulse Resp B/P (MAP) Pulse Ox O2 Delivery O2 Flow Rate FiO2 02/02/20 16:32 98.7 85 18 118/73 (88) 100 01/31/20 13:38 Room Air I & O 02/01/20 02/01/20 02/02/20 14:59 22:59 06:59 Intake Total 480 ml 660 ml Balance 480 ml 660 ml Current Medications: I have reviewed the current psychotropics carefully including drug interactions. Risk benefit ratio favors no change other than as noted in my dictated progress note. Diagnosis: Problems: (1) Cognitive impairment (2) Bipolar disorder with psychotic features (3) Impulse control disorder, unspecified (4) Anxiety disorder, unspecified SABRINA SHANNON MD Feb 02, 2020 22:20
[2020-02-03 05:03] VITALS: BP 135/55
[2020-02-03] MEDS: LOPERAMIDE 2 MG CAPSULE PO PRN (05:15)
[2020-02-03] MEDS: LEVOTHYROXINE 100 MCG TABLET PO SCH (05:24)
[2020-02-03] MEDS: ASPIRIN CHEWABLE 81 MG TABLET. PO SCH (08:25)
[2020-02-03] MEDS: BRIMONIDINE 0.2% OPHTH SOLUTION 5ML BOTTLE. OS SCH ×3 (08:26→20:24)
[2020-02-03] MEDS: ASCORBIC ACID 500 MG TABLET PO SCH ×2 (08:26→20:25)
[2020-02-03] MEDS: PANTOPRAZOLE 40 MG TABLET. PO SCH (08:26)
[2020-02-03] MEDS: cycloSPORINE 0.05% OPTH 1 DROP DROPERETTE OU SCH ×2 (08:26→20:24)
[2020-02-03] MEDS: DORZOLAMIDE 2% OPHTH SOLUTION 10ML BOTTLE. OS SCH ×3 (08:26→20:24)
[2020-02-03] MEDS: OMEGA-3 FATTY ACIDS/FISH OIL 1,000 MG CAPSULE. PO SCH ×3 (08:26→20:25)
[2020-02-03] MEDS: DIVALPROEX ER 500 MG TAB.ER.24H PO SCH (08:26)
[2020-02-03] MEDS: risperiDONE 0.25 MG TABLET. PO SCH (08:26)
[2020-02-03 09:11] LABS: BASO % 0 % (0-3); EOS # 0.1 x10^3/uL (0.0-0.7); EOS % 1 % (0-3); HEMATOCRIT 41.4 % (36.0-47.0); HEMOGLOBIN 13.5 g/dL (12.0-15.5); LYMPH # 1.1 x10^3/uL (1.0-4.8); LYMPH % 20 % (24-48); MEAN CORPUSCULAR HEMOGLOBIN 29 pg (25-35); MEAN CORPUSCULAR HGB CONC 33 g/dL (31-37); MEAN CORPUSCULAR VOLUME 89 fL (79-100); MONO # 0.4 x10^3/uL (0.0-1.1); MONO % 8 % (0-9); NEUT # 3.9 x10^3uL (1.8-7.7); NEUT % 71 % (31-73); PLATELET COUNT 165 x10^3/uL (140-400); RED BLOOD COUNT 4.66 x10^6/uL (3.50-5.40); WHITE BLOOD COUNT 5.5 x10^3/uL (4.0-11.0)
[2020-02-03 09:25] LABS: ALBUMIN 3.2 g/dL (3.4-5.0); ALBUMIN/GLOBULIN RATIO 0.9 (1.0-1.7); ALK PHOS 63 U/L (46-116); ALT (SGPT) 25 U/L (14-59); ANION GAP 8 (6-14); AST (SGOT) 15 U/L (15-37); BLOOD UREA NITROGEN 22 mg/dL (7-20); BUN/CREATININE RATIO 18 (6-20); CALCIUM 8.6 mg/dL (8.5-10.1); CARBON DIOXIDE 29 mmol/L (21-32); CHLORIDE 106 mmol/L (98-107); CREATININE 1.2 mg/dL (0.6-1.0); GFR 42.8; GLUCOSE 137 mg/dL (70-99); POTASSIUM 4.3 mmol/L (3.5-5.1); SODIUM 143 mmol/L (136-145); TOTAL BILIRUBIN 0.4 mg/dL (0.2-1.0); TOTAL PROTEIN 6.8 g/dL (6.4-8.2)
[2020-02-03 09:35] LABS: VAL ACID 59 mcg/mL (50-100)
--- NOTE | 2020-02-03 09:54 | PDOC ---
Exam Note: Epifanio Note: This note is a late entry for 02/02/2020 covers elements not covered in my initial note. Subjective: The patient was seen individually in the evening of 02/02/2020. Per Melissa LANDAVERDE she slept 3-3/4 hours previous night. I have talked to the nursing staff earlier in the day. As before the patient remains extremely resistive to treatment, agitated at nursing staff, blames nursing staff for stealing her things, which are in fact in safe keeping in the locker. Reportedly the patients daughter called this morning but the patient was on online mormon and the daughter did not want to disturb the patient, but the patient has conveyed to Melissa LANDAVERDE her plan for her mother discharge and transit ion to outpatient treatment. The patient is threatening to get everyone fired, shut down the hospital and get the attorneys after everyone. She remains delusional, grandiose but not an active danger to herself and is reasonably oriented. I have let her know and the daughter is aware that we would not hold the patient in the hospital without the power of attorneys consent. We will defer to social service staff to address this further. In the evening when I met with her on rounds she had refused lunch and dinner because she refused to go to the cafeteria but said she was hungry and Augusta LANDAVERDE did bring her dinner tray to her room. Review of Systems: She is hard of hearing. Ambulation impaired with walker. No CV, , pulmonary, eye system symptoms on review. She has vague somatic symptoms. Mental Status Exam: Oriented to herself and situation. Speech is coherent, somewhat pressured. Abstraction is fair. Computation is impaired. Language function is intact. Mood and affect remains somewhat grandiose. Laboratory Data: Reviewed. Impression: Bipolar 1 disorder manic with psychotic features. Mild cognitive impairment. Anxiety disorder unspecified. Impulse control disorder unspecified. Plan: Continue psychotropics from initial note. Encourage compliance with Depakote and Risperdal. She has been quite resistive to it. I addressed this with her. Assessment: Vital Signs/I&O: Vital Signs Date Time Temp Pulse Resp B/P (MAP) Pulse Ox O2 Delivery O2 Flow Rate FiO2 02/03/20 05:03 98.6 92 20 135/55 (81) 98 01/31/20 13:38 Room Air I & O0 02/02/20 02/02/20 02/03/20 15:00 23:00 07:00 Intake Total 720 ml 360 ml Balance 720 ml 360 ml Labs: Laboratory Tests Test 02/03/20 08:55 White Blood Count 5.5 x10^3/uL (4.0-11.0) Red Blood Count 4.66 x10^6/uL (3.50-5.40) Hemoglobin 13.5 g/dL (12.0-15.5) Hematocrit 41.4 % (36.0-47.0) Mean Corpuscular Volume 89 fL (79-100) Mean Corpuscular Hemoglobin 29 pg (25-35) Mean Corpuscular Hemoglobin Concent 33 g/dL (31-37) Red Cell Distribution Width 15.0 % (11.5-14.5) H Platelet Count 165 x10^3/uL (140-400) Neutrophils (%) (Auto) 71 % (31-73) Lymphocytes (%) (Auto) 20 % (24-48) L Monocytes (%) (Auto) 8 % (0-9) Eosinophils (%) (Auto) 1 % (0-3) Basophils (%) (Auto) 0 % (0-3) Neutrophils # (Auto) 3.9 x10^3uL (1.8-7.7) Lymphocytes # (Auto) 1.1 x10^3/uL (1.0-4.8) Monocytes # (Auto) 0.4 x10^3/uL (0.0-1.1) Eosinophils # (Auto) 0.1 x10^3/uL (0.0-0.7) Basophils # (Auto) 0.0 x10^3/uL (0.0-0.2) Sodium Level 143 mmol/L (136-145) Potassium Level 4.3 mmol/L (3.5-5.1) Chloride Level 106 mmol/L (98-107) Carbon Dioxide Level 29 mmol/L (21-32) Anion Gap 8 (6-14) Blood Urea Nitrogen 22 mg/dL (7-20) H Creatinine 1.2 mg/dL (0.6-1.0) H Estimated GFR (Cockcroft-Gault) 42.8 BUN/Creatinine Ratio 18 (6-20) Glucose Level 137 mg/dL (70-99) H Calcium Level 8.6 mg/dL (8.5-10.1) Total Bilirubin 0.4 mg/dL (0.2-1.0) Aspartate Amino Transferase (AST) 15 U/L (15-37) Alanine Aminotransferase (ALT) 25 U/L (14-59) Alkaline Phosphatase 63 U/L (46-116) Total Protein 6.8 g/dL (6.4-8.2) Albumin 3.2 g/dL (3.4-5.0) L Albumin/Globulin Ratio 0.9 (1.0-1.7) L Valproic Acid Level 59 mcg/mL (50-100) Valproic Acid Last Dose Date 02/02/20 Valproic Acid Last Dose Time 08 Current Medications: Meds: Current Medications Medications (Trade) Dose Ordered Sig/Sariah Route PRN Reason Start Time Stop Time Status Last Admin Dose Admin Loperamide HCl (Imodium) 2 mg PRN Q2HR PRN PO DIARRHEA 02/03/20 05:00 02/03/20 05:15 I have reviewed the current psychotropics carefully including drug interactions. Risk benefit ratio favors no change other than as noted in my dictated progress note. Diagnosis: Problems: (1) Cognitive impairment (2) Bipolar disorder with psychotic features (3) Impulse control disorder, unspecified (4) Anxiety disorder, unspecified SABRINA SHANNON MD Feb 03, 2020 09:54
--- NOTE | 2020-02-03 11:30 | NUR ---
Patient has been calm, cooperative. States that Dr Cohen told her last night that she may get to leave, but that they had to talk with her daughter about discharge plans. Pt does enjoy watching [employer] on the Sourav. Pt complaining of diarrhea, however patient is drinking several ensures. Pt educated on ensures causing diarrhea. WCTM.
--- NOTE | 2020-02-03 14:50 | NUR ---
NOY left a message for Dionna to contact NOY when possible to discuss some discharge plans and the conversation NOY had with pt last week.
--- NOTE | 2020-02-03 15:40 | NUR ---
NOY met with pt who said "well look what the cat dragged in". SW explained to pt that she received her requests to see pt; however, other things were priority and SW would have to meet with pt when the opportunity would present itself, which is now. Pt felt that SW was not doing her job as the psychiatrist has been seeing her daily despite her request to not see him. "I understand that he is the only psychiatrist but I still have the right to refuse him". SW informed pt that her request to not see him was conveyed to him that same night however, "you are right, he is the only psychiatrist available to complete your treatment here". Pt continues to feel like she is getting treated poorly and being picked on by all staff because she is "the only black person on the floor". Pt expressed complaints about them making her walk to dinner, not being able to get her hearing aid battery out of the safe and being held captive. "I was told that Dionna is refusing to get me out of here. I will take care of that because I have the right to change my DPOA and she has abused her power. If I find out she spent my money while I was in here, I'll make sure she goes to snf, you good my word". Pt continued to seek clarification by ONY that a DPOA is only activated in the event that pt is incapacitated or unable to make her own decisions. NOY agreed with pt, but reminded pt that when she came in, she had 2 physicians who felt like she was incapacitated at the time. NOY informed pt that psychological testing will be completed tomorrow by a psychologist from the [facility]. "Is it Ramon? I know him because he sees me there and I can guarantee you he won't see me as incompetent. We have already discussed this and he said Ms. Cárdenas, you are not incapacitated and I will not sign anything that says you are". NOY informed pt that it was not Ramon but Dr. Pickens and she stated "oh that is Ramon's boss. That is fine". NOY explained that this will verify indeed if pt is able to make her own decisions. And from there, discharge planning (e.g. when) can be discussed from there. Pt appeared to be content with this.
--- NOTE | 2020-02-03 16:40 | NUR ---
NOY spoke with Dionna re: an update on pt and the conversation SW had with her. Pt continues to be very angry with Dionna for "putting her in here", despite SW explaining that she met with 2 physicians: 1 on telehealth, and the other [place] [address]. Both parties recommended that she get an evaluation and come up to [facility]. Pt reiterated that she was not taking her medications which caused her behaviors. Dionna wants to make sure that staff is not telling pt that Dionna is making her. The recommendation was made and Dionna had to make the final decision based of the physicians recommendation. SW informed Dionna that she is planning to take Dionna off the DPOA as she has "abused her power". SW also informed Dionna that pt also states that once she gets out, if she finds out that she has been spending her money, she is going to send her to [facility]. Dionna feels as though nursing and SW is not on the same page. NOY and Dionna discussed the fact that she treats nursing staff completely different than she treats me. NOY explained that pt triggers with nursing are not the same with me. She feels like she is being treated like a dog and continues to want to discharge home. At this point, both parties agreed that no phone calls to Dionna need to be made until psychological testing is completed. All discharge plans will be re-evaluated from there.
[2020-02-03 16:44] VITALS: BP 134/84
--- NOTE | 2020-02-03 18:44 | NUR ---
RN spoke with patients daughterDionna. Daughter asking if patient was able to watch [employer]. Asking about the schedule she emailed. RN informed daughter that the schedule was lost. Daughter attempting to send a new one via email. RN asked daughter if she was willing to talk with patient as patient is wanting to speak with her. Daughter hesitant, asking what frame of mind patient was in. RN told daughter that she was calm today, but has been anxious to speak with the daughter. Daughter states that she is worried that patient will get too upset and ruin her progress so is apprehensive to talk with her. Daughter states that watching the confessions and videos from [employer] is a huge part of her mothers recovery. Daughter specific that patient must watch the "confessions". Daughter asking nurse, "well what have you been telling my mother? I don't want her thinking that we put her there because she is crazy" RN reassured daughter that staff does not tell patient that she is crazy or that her family thinks that. RN reminded daughter of the wording she wanted us to use with patient that was documented in this nurses note from last monday. [facility].
--- NOTE | 2020-02-03 18:50 | NUR ---
Daughter called up speaking with another RN. Asking if patient had received calls from anyone, daughter told no. Pt has not received any calls or talked with anyone outside of facility today. Daughter changed patient passcode stating "i only want my brother and I to be able to call her". CJ.
[2020-02-03] MEDS: LATANOPROST 0.005% OPHTH SOLUTION 2.5ML BOTTLE. OS SCH (20:24)
[2020-02-03] MEDS: MIRTAZAPINE 15 MG TABLET PO SCH (20:25)
[2020-02-03] MEDS: traZODone 50 MG TABLET. PO SCH (20:25)
[2020-02-03] MEDS: SIMVASTATIN 20 MG TABLET PO SCH (20:25)
--- NOTE | 2020-02-03 21:16 | NUR ---
Pt up walking in hallway at shift change. Pt affect flat, at times she holds conversations with different staff members but other times she claims to not be able hear. Pt was cooperative with assessment and compliant with medications this evening.
--- NOTE | 2020-02-03 22:18 | PDOC ---
Exam Note: Epifanio Note: Please also refer to the separate dictated note~for this date of service dictated separately.~Patient seen individually. Discussed the patient with Nursing staff reviewed the chart.~Reviewed interim history and current functioning. Reviewed vital signs,~Labs/ Radiology~and current medications noted below. Continue current treatment with the changes noted in the dictated addendum note Assessment: Vital Signs/I&O: Vital Signs Date Time Temp Pulse Resp B/P (MAP) Pulse Ox O2 Delivery O2 Flow Rate FiO2 02/03/20 16:44 97.8 93 18 134/84 (101) 100 01/31/20 13:38 Room Air I & O 02/02/20 02/02/20 02/03/20 15:00 23:00 07:00 Intake Total 720 ml 360 ml Balance 720 ml 360 ml Labs: Laboratory Tests Test 02/03/20 08:55 White Blood Count 5.5 x10^3/uL (4.0-11.0) Red Blood Count 4.66 x10^6/uL (3.50-5.40) Hemoglobin 13.5 g/dL (12.0-15.5) Hematocrit 41.4 % (36.0-47.0) Mean Corpuscular Volume 89 fL (79-100) Mean Corpuscular Hemoglobin 29 pg (25-35) Mean Corpuscular Hemoglobin Concent 33 g/dL (31-37) Red Cell Distribution Width 15.0 % (11.5-14.5) H Platelet Count 165 x10^3/uL (140-400) Neutrophils (%) (Auto) 71 % (31-73) Lymphocytes (%) (Auto) 20 % (24-48) L Monocytes (%) (Auto) 8 % (0-9) Eosinophils (%) (Auto) 1 % (0-3) Basophils (%) (Auto) 0 % (0-3) Neutrophils # (Auto) 3.9 x10^3uL (1.8-7.7) Lymphocytes # (Auto) 1.1 x10^3/uL (1.0-4.8) Monocytes # (Auto) 0.4 x10^3/uL (0.0-1.1) Eosinophils # (Auto) 0.1 x10^3/uL (0.0-0.7) Basophils # (Auto) 0.0 x10^3/uL (0.0-0.2) Sodium Level 143 mmol/L (136-145) Potassium Level 4.3 mmol/L (3.5-5.1) Chloride Level 106 mmol/L (98-107) Carbon Dioxide Level 29 mmol/L (21-32) Anion Gap 8 (6-14) Blood Urea Nitrogen 22 mg/dL (7-20) H Creatinine 1.2 mg/dL (0.6-1.0) H Estimated GFR (Cockcroft-Gault) 42.8 BUN/Creatinine Ratio 18 (6-20) Glucose Level 137 mg/dL (70-99) H Calcium Level 8.6 mg/dL (8.5-10.1) Total Bilirubin 0.4 mg/dL (0.2-1.0) Aspartate Amino Transferase (AST) 15 U/L (15-37) Alanine Aminotransferase (ALT) 25 U/L (14-59) Alkaline Phosphatase 63 U/L (46-116) Total Protein 6.8 g/dL (6.4-8.2) Albumin 3.2 g/dL (3.4-5.0) L Albumin/Globulin Ratio 0.9 (1.0-1.7) L Valproic Acid Level 59 mcg/mL (50-100) Valproic Acid Last Dose Date 02/02/20 Valproic Acid Last Dose Time 0808 Current Medications: Meds: Current Medications Medications (Trade) Dose Ordered Sig/Sariah Route PRN Reason Start Time Stop Time Status Last Admin Dose Admin Loperamide HCl (Imodium) 2 mg PRN Q2HR PRN PO DIARRHEA 02/03/20 05:00 02/03/20 05:15 I have reviewed the current psychotropics carefully including drug interactions. Risk benefit ratio favors no change other than as noted in my dictated progress note. Diagnosis: Problems: (1) Cognitive impairment (2) Bipolar disorder with psychotic features (3) Impulse control disorder, unspecified (4) Anxiety disorder, unspecified SABRINA SHANNON MD Feb 03, 2020 22:18
[2020-02-04 05:35] VITALS: BP 129/69
[2020-02-04] MEDS: LEVOTHYROXINE 100 MCG TABLET PO SCH (06:00)
--- NOTE | 2020-02-04 07:25 | PDOC ---
Exam Note: Epifanio Note: This note is a late entry for 02/03/2020 covers elements not covered in my initial note. Subjective: The patient was seen individually in the evening of 02/03/2020. Per Guanako LANDAVERDE she slept 5-1/2 hours previous night. In the morning she was very pleasant, repeatedly stating please and thank you. She seems to show selective hearing per nursing staff, often choosing not to hear the staff, other times being able to hear reasonably well. Discussed with [facility] social service staff. We will have psychological testing with Dr. Pickens this week to determine capacity to make decisions for herself. She has been attending [employer] services, seems better with this. Daughter had shared with nursing staff some activity she feels the patient would respond to positively including the online [employer] services and staff are following through with this. The patient was refusing to talk to me supper time this evening as I met with her. Daughter for now is preferring not to talk to the patient and to let her stabilize from a psychiatric standpoint. We are adjusting her Risperdal and Depakote for bipolar disorder. Review of Systems: She is hard of hearing. Ambulation impaired with walker. No CV, , pulmonary, eye system symptoms on review. Mental Status Exam: Oriented to herself and situation. Speech is coherent. Abstraction is fair. Computation is impaired. Language function is intact. Attention span short. Mood and affect less grandiose, little more pleasant, less irritable, less threatening today, which is an improvement. No suicidal or homicidal ideation. Laboratory Data: Reviewed. Impression: Bipolar 1 disorder manic with psychotic features, in partial remission. Mild cognitive impairment. Anxiety disorder unspecified. Impulse control disorder unspecified. Plan: Continue psychotropics from initial note. Continue Depakote and Risperdal and we will administer these anytime of the day she takes it. Adjust further as clinically indicated. Assessment: Vital Signs/I&O: Vital Signs Date Time Temp Pulse Resp B/P (MAP) Pulse Ox O2 Delivery O2 Flow Rate FiO2 02/04/20 05:35 98.0 59 18 129/69 (89) 99 01/31/20 13:38 Room Air I & O 02/03/20 02/03/20 02/04/20 15:00 23:00 07:00 Intake Total 240 ml 120 ml Balance 240 ml 120 ml Labs: Laboratory Tests Test 02/03/20 08:55 White Blood Count 5.5 x10^3/uL (4.0-11.0) Red Blood Count 4.66 x10^6/uL (3.50-5.40) Hemoglobin 13.5 g/dL (12.0-15.5) Hematocrit 41.4 % (36.0-47.0) Mean Corpuscular Volume 89 fL (79-100) Mean Corpuscular Hemoglobin 29 pg (25-35) Mean Corpuscular Hemoglobin Concent 33 g/dL (31-37) Red Cell Distribution Width 15.0 % (11.5-14.5) H Platelet Count 165 x10^3/uL (140-400) Neutrophils (%) (Auto) 71 % (31-73) Lymphocytes (%) (Auto) 20 % (24-48) L Monocytes (%) (Auto) 8 % (0-9) Eosinophils (%) (Auto) 1 % (0-3) Basophils (%) (Auto) 0 % (0-3) Neutrophils # (Auto) 3.9 x10^3uL (1.8-7.7) Lymphocytes # (Auto) 1.1 x10^3/uL (1.0-4.8) Monocytes # (Auto) 0.4 x10^3/uL (0.0-1.1) Eosinophils # (Auto) 0.1 x10^3/uL (0.0-0.7) Basophils # (Auto) 0.0 x10^3/uL (0.0-0.2) Sodium Level 143 mmol/L (136-145) Potassium Level 4.3 mmol/L (3.5-5.1) Chloride Level 106 mmol/L (98-107) Carbon Dioxide Level 29 mmol/L (21-32) Anion Gap 8 (6-14) Blood Urea Nitrogen 22 mg/dL (7-20) H Creatinine 1.2 mg/dL (0.6-1.0) H Estimated GFR (Cockcroft-Gault) 42.8 BUN/Creatinine Ratio 18 (6-20) Glucose Level 137 mg/dL (70-99) H Calcium Level 8.6 mg/dL (8.5-10.1) Total Bilirubin 0.4 mg/dL (0.2-1.0) Aspartate Amino Transferase (AST) 15 U/L (15-37) Alanine Aminotransferase (ALT) 25 U/L (14-59) Alkaline Phosphatase 63 U/L (46-116) Total Protein 6.8 g/dL (6.4-8.2) Albumin 3.2 g/dL (3.4-5.0) L Albumin/Globulin Ratio 0.9 (1.0-1.7) L Valproic Acid Level 59 mcg/mL (50-100) Valproic Acid Last Dose Date 02/02/20 Valproic Acid Last Dose Time 807 Current Medications: I have reviewed the current psychotropics carefully including drug interactions. Risk benefit ratio favors no change other than as noted in my dictated progress note. Diagnosis: Problems: (1) Cognitive impairment (2) Bipolar disorder with psychotic features (3) Impulse control disorder, unspecified (4) Anxiety disorder, unspecified SABRINA SHANNON MD Feb 04, 2020 07:25
[2020-02-04] MEDS: BRIMONIDINE 0.2% OPHTH SOLUTION 5ML BOTTLE. OS SCH ×3 (09:40→20:32)
[2020-02-04] MEDS: DORZOLAMIDE 2% OPHTH SOLUTION 10ML BOTTLE. OS SCH ×3 (09:40→20:32)
[2020-02-04] MEDS: cycloSPORINE 0.05% OPTH 1 DROP DROPERETTE OU SCH ×2 (09:41→20:04)
[2020-02-04] MEDS: ASCORBIC ACID 500 MG TABLET PO SCH ×2 (09:41→20:04)
[2020-02-04] MEDS: OMEGA-3 FATTY ACIDS/FISH OIL 1,000 MG CAPSULE. PO SCH ×3 (09:41→20:05)
[2020-02-04] MEDS: PANTOPRAZOLE 40 MG TABLET. PO SCH (09:41)
[2020-02-04] MEDS: ASPIRIN CHEWABLE 81 MG TABLET. PO SCH (09:41)
--- NOTE | 2020-02-04 09:52 | NUR ---
Patient is angry that the Sourav is not charged fully and she wants to use to listen to a program. It has been on tre[employer] specialist since this morning. She is also angry that she was not "first" with her medications. Nurse provided education to patient regarding medication administration starts in the dining room at 0800. Patient left the dining room prior to 0830. Nurse met with patient in her room at 0930 for medications. Patient allowed the restasis drops but refused the other two stating, "my eyes are no deteriorating and it is your fault". Patient refused the eye medications and told nurs "you don't even know how to do it, the other drops have to be 20 minutes after the restasis". Nurse told patient she would come back in about 20 minutes with the other eye drops. Patient is [employer] and does not have batteries for her hearing aids. She will only accept batteries from [employer] and that kind is not available on this unit. Addendum: 02/04/20 at 1000 by DAYNE AKINS RN Patient refuses to participate in groups and the unit programing, instead she prefers to listen to the Sourav with headphones in her room with the door closed.
--- NOTE | 2020-02-04 11:37 | NUR ---
Patient is demanding and acts as if she cannot hear without her hearing aids. Patient refuses to come out of her room for groups (claiming that she has diarrhea and that her feet are swollen). Patient sitting in the chair in her room with her legs elevated on a walker. Patients daughter has called x3 to "make sure that her mom has the Sourav to listen to a certain buddhist program" Sourav is still not fully charged. Sourav had been in this patients room overnight and was at 0% charge when dayshift came on duty. Patient was compliant with medications taken whole, fish pill taken in applesauce. She remains withdrawn to her room.
[2020-02-04 15:40] VITALS: BP 117/59
--- NOTE | 2020-02-04 15:51 | NUR ---
NOY returned call to Dionna to go over the fact that pt can have her tablet/Ipod on the unit. Dionna understands that the unit will not be held liable if anything happens to the tablet. The tablet will be locked up in pt cabinet. Pt dtr questioned if pt needed anything else and SW mentioned that if they wanted to bring lotion for pt that would be fine. Pt was find with 6 bottles of lotion in her room and she was requesting more. Dionna reports that it always makes her anxious to see the hospital number come up on her phone. She reports being very appreciative of the staff and everything that is being done to ensure that her mother can return to a stable state. NOY will continue to keep Dionna up to date after testing is completed and go from there.
[2020-02-04] MEDS: SIMVASTATIN 20 MG TABLET PO SCH (20:04)
[2020-02-04] MEDS: risperiDONE 0.25 MG TABLET. PO SCH (20:04)
[2020-02-04] MEDS: MIRTAZAPINE 15 MG TABLET PO SCH (20:04)
[2020-02-04] MEDS: traZODone 50 MG TABLET. PO SCH (20:05)
[2020-02-04] MEDS: DIVALPROEX ER 500 MG TAB.ER.24H PO SCH (20:05)
[2020-02-04] MEDS: LATANOPROST 0.005% OPHTH SOLUTION 2.5ML BOTTLE. OS SCH (20:54)
--- NOTE | 2020-02-04 21:43 | NUR ---
Pt withdrawn to her room, sitting quietly at shift change. Pt moved a chair in her room to the doorway to sit. Pt with a flat affect and interacting minimally with staff this evening. Thus far this shift, pt has not told any of the staff that she is unable to hear them. Pt cooperative with assessment and compliant with medications administered whole.
--- NOTE | 2020-02-04 22:07 | PDOC ---
Exam Note: Epifanio Note: Please also refer to the separate dictated note~for this date of service dictated separately.~Patient seen individually. Discussed the patient with Nursing staff reviewed the chart.~Reviewed interim history and current functioning. Reviewed vital signs,~Labs/ Radiology~and current medications noted below. Continue current treatment with the changes noted in the dictated addendum note Assessment: Vital Signs/I&O: Vital Signs Date Time Temp Pulse Resp B/P (MAP) Pulse Ox O2 Delivery O2 Flow Rate FiO2 02/04/20 15:40 97.9 84 18 117/59 (78) 100 Room Air I & O 02/03/20 02/03/20 02/04/20 15:00 23:00 07:00 Intake Total 240 ml 120 ml Balance 240 ml 120 ml Current Medications: I have reviewed the current psychotropics carefully including drug interactions. Risk benefit ratio favors no change other than as noted in my dictated progress note. Diagnosis: Problems: (1) Cognitive impairment (2) Bipolar disorder with psychotic features (3) Impulse control disorder, unspecified (4) Anxiety disorder, unspecified SABRINA SHANNON MD Feb 04, 2020 22:07
[2020-02-05] MEDS: LEVOTHYROXINE 100 MCG TABLET PO SCH (05:05)
[2020-02-05 05:21] VITALS: BP 101/58
--- NOTE | 2020-02-05 07:05 | PDOC ---
Exam Note: Epifanio Note: This note is a late entry for 02/04/2020 covers elements not covered in my initial note. Subjective: The patient was seen individually in the evening of 02/04/2020. Per Macey LANDAVERDE she slept 3 hours previous night. The patient has been demanding, threatening staff Cant you hear me. I met with her on 3 separate occasions on rounds in the evening. She was loud, demanding, threatening, paranoid. Earlier in the day she was somewhat better with nursing staff. I also called Dr. Miguel her primary care physician and informed him of her progress. Apparently the patient had called Dr. Miguel about two weeks prior to her hospitalizations, said she stopped all her medications. Dr. Miguel indicated he encouraged her to restart her medications but she probably never did and it was too late anyway. She relapsed and was hospitalized with us. At times refused to use walker. At times she also pretends she cant hear and seems to have selective hearing quite evident during the visit today. At 3rd part of visit, she followed me around the unit, came charging with her walker, threatening, demanding loud labile in her mood. She is compliant with her eyedrops, took her medications whole h.s. She is going to have psychological testing with Dr. Pickens tomorrow. Review of Systems: Ambulation impaired with walker. No CV, , pulmonary, eye system symptoms on review. She has vague somatic symptoms. She complains of intermittent diarrhea. Mental Status Exam: Oriented to herself and situation. Speech is coherent, rapid loud at times. Abstraction is fair. Computation is impaired. Language function is intact. Attention span short. Mood and affect labile, grandiose, paranoid. Laboratory Data: Reviewed. Impression: Bipolar 1 disorder manic with psychotic features. Mild cognitive impairment. Anxiety disorder unspecified. Impulse control disorder unspecified. Plan: Continue psychotropics from initial note. Risperdal 0.75 mg h.s. Depa kote current dosage level therapeutic at 59. We may need to increase Risperdal. Maintain Remeron 7.5 mg h.s., Klonopin and Zyprexa p.r.n., trazodone p.r.n. Assessment: Vital Signs/I&O: Vital Signs Date Time Temp Pulse Resp B/P (MAP) Pulse Ox O2 Delivery O2 Flow Rate FiO2 7/1/20 05:21 98.8 87 16 101/58 (72) 97 Room Air I & O 02/04/20 02/04/20 02/05/20 15:00 23:00 07:00 Intake Total 960 ml 480 ml Balance 960 ml 480 ml Current Medications: I have reviewed the current psychotropics carefully including drug interactions. Risk benefit ratio favors no change other than as noted in my dictated progress note. Diagnosis: Problems: (1) Cognitive impairment (2) Bipolar disorder with psychotic features (3) Impulse control disorder, unspecified (4) Anxiety disorder, unspecified SABRINA SHANNON MD Feb 05, 2020 07:05
[2020-02-05] MEDS: ASCORBIC ACID 500 MG TABLET PO SCH ×2 (07:44→20:10)
[2020-02-05] MEDS: BRIMONIDINE 0.2% OPHTH SOLUTION 5ML BOTTLE. OS SCH ×3 (07:45→20:59)
[2020-02-05] MEDS: ASPIRIN CHEWABLE 81 MG TABLET. PO SCH (07:45)
[2020-02-05] MEDS: OMEGA-3 FATTY ACIDS/FISH OIL 1,000 MG CAPSULE. PO SCH ×3 (07:45→20:11)
[2020-02-05] MEDS: cycloSPORINE 0.05% OPTH 1 DROP DROPERETTE OU SCH ×2 (07:45→20:10)
[2020-02-05] MEDS: PANTOPRAZOLE 40 MG TABLET. PO SCH (07:45)
[2020-02-05] MEDS: DORZOLAMIDE 2% OPHTH SOLUTION 10ML BOTTLE. OS SCH ×3 (07:45→20:59)
--- NOTE | 2020-02-05 13:52 | NUR ---
NURSING NOTE BELONGINGS PT FAMILY DROPPED OFF BLACK AMAZON KINDEL WITH CHARGE WELL BOTTLE OF LOTION. LOTION PLACED IN PT CLOSET, KINDEL PLACED IN MED ROOM AT NURSE STATION TO CHARGE. AKHIL SILVESTRE.
--- NOTE | 2020-02-05 13:53 | NUR ---
NURSING NOTE PT WAS IN HALLWAY THIS AM UPON ASSESSMENT AND MEDICATION ADMINISTRATION. PT WAS A&O X4 THIS AM. PT TOOK HER MEDS WHOLE WITH NO COMPLICATIONS. PT ALSO HAS EYE DROPS THAT SHE LIKES AT SPECIFIC TIMES. PT DENIES ANY SI THOUGHTS OR HALLUCINATIONS. PT C/O ACID REFLEX STATES SHE LIKES TO DRINK A "7 UP" BEFORE MEALS TO HELP WITH THAT. PT WAS TEARFUL THIS AM AND ANGRY TOWARDS OTHER PATIENTS THAT WERE NEARBY. PT WAS UPSET BECAUSE ANOTHER PATIENT ATTEMPT TO SIT ON HER. PT STATES SHE SLEPT OKAY LAST NIGHT. PT ISOLATES INTO HER ROOM AFTER BREAKFAST. PT DID NOT PARTICIPATE IN GROUP THIS AM. PT CURRENTLY SITTING IN HALLWAY READING HER BIBLE. WILL CONTINUE TO MONITOR. AKHIL SILVESTRE.
--- NOTE | 2020-02-05 15:00 | NUR ---
Pt had psychological testing completed and appears to have more significant cognitive decline than noted on pt chart. SW met with the psychologist who was able to explain in testing pt that she is aware of her decline and attempts very hard to overcompensate. The psychologist feels that this is where pt anger stems from; moreover, he does not deny that pt has Bipolar D/O or even some Personality D/O. The psychologist mentioned that he spoke plenty loud and clear for pt to have a conversation and to complete testing; however, in explaining directions to pt and even minor attempts to start the test out himself, pt was not able to follow immediate directions. It will be recommended that pt does not stay at home alone and consider going to placement. There are concerns that pt will continue to not take her meds "whether she forgets them, or chooses not to take them, it will be a set back for pt". The psych testing report will be fully completed tomorrow morning.
--- NOTE | 2020-02-05 16:45 | NUR ---
NURSING NOTE BEHAVIOR RADIOLOGY CAME TO FLOOR TO DO EXAM. PT VERBALLY AGGRESSIVE STATING "MY LEGS HAVE BEEN LIKE THIS FOR 9 DAYS AND YOU JUST NOW CARE?". "I AM NOT TAKING MY PANTS OFF FOR THIS EXAM." ENCOURAGED PT TO GET THE IMAGE TO MAKE SURE EVERYTHING IS OKAY WITH HER LEGS SINCE SHE HAD THE INCREASE IN SWELLING AND SHE WAS WORRIED ABOUT IT. PT EVENTUALLY ALLOWED THE TECH TO TAKE THE IMAGE WITH ENCOURAGEMENT AND REDIRECTION. PT VERBALLY AGGRESSIVE DURING EXAM. AKHIL SILVESTRE.
[2020-02-05 16:49] VITALS: BP 161/86
--- NOTE | 2020-02-05 17:21 | PN ---
DATE: 02/05/2020 SUBJECTIVE: The patient was seen today as she is complaining of marked swelling of both lower extremities. She, however, did complain also of some shortness of breath, but denied any chest pain, denied any cough, phlegm or hemoptysis. PHYSICAL EXAMINATION: GENERAL: When I saw her this afternoon, she looked well and was clearly in no apparent respiratory distress. No pallor, jaundice, cyanosis or thyromegaly. No jugular venous distention, but marked bilateral lower extremity edema. VITAL SIGNS: Her heart rate was 87, blood pressure was 101/58, temperature was 98.8, respiratory rate was 16, and oxygen saturation was 97% on room air. HEAD, EYES, EARS, NOSE AND THROAT: Showed normocephalic, atraumatic. NECK: Supple. HEART: Showed normal first and second heart sounds. No gallop, rub or murmur. CHEST: Clear to auscultation. No crepitation or rhonchi. ABDOMEN: Distended, soft, nontender. NEUROLOGIC: She is hard of hearing. Otherwise, her cranial nerves intact. She moves extremities without difficulty. She has marked bilateral lower extremity swelling with marked pitting edema. LABORATORY DATA: Her most recent lab work showed a serum sodium 143, potassium 4.3, chloride 106, bicarbonate 29, anion gap of 8, BUN 22, creatinine 1.2, estimated GFR was 42 mL per minute, her glucose 137, calcium was 8.6. Total bilirubin, AST, ALT, alkaline phosphatase were normal. Total protein was 6.8, albumin 3.2. Her white cell count was 5500, hemoglobin 13.5, hematocrit 41, MCV 89 and platelet count of 165,000. ASSESSMENT: This is an 84-year-old -[place] female patient, whom I have seen today with marked swelling of both lower extremities. She also did complain of shortness of breath and also orthopnea; although, she also has gastroesophageal reflux disease. Clinically, the patient did not seem to be in any respiratory distress. Her heart rate and oxygen saturation was well within normal range. Her chest examination showed that the lungs are clear. I could not appreciate any crepitation or rhonchi. She apparently walks with a walker, but spends a lot of time in her chair and trying to alleviate them. PLAN: My plan is to repeat her labs tomorrow including BMP. I will arrange for her to have bilateral venous Doppler ultrasound and decide on further management accordingly. ALDEN MAX MD DR: JAK/stevo JOB#: [id number] / [id number]
--- NOTE | 2020-02-05 17:24 | RAD ---
Bilateral lower extremity venous Doppler ultrasound History: Reason: BLE SWELLING / Spl. Instructions: / History: Comparison: None. Procedure: Color flow Doppler, Doppler spectral analysis, and 2D images are obtained with and without compression in the area of the common femoral vein, superficial femoral vein - femoral vein junction, main femoral vein (superficial femoral vein) and popliteal vein. Veins of the proximal calf are also imaged. Findings: There is normal color flow, augmentation, and compressibility of all visualized right deep vein segments. No evidence of deep venous thrombus is present. There is noncompressibility and lack of color flow in the left peroneal veins. Chzyf-ots-exaf the left deep veins all demonstrate normal color flow, augmentation, and compressibility. IMPRESSION: 1. Occlusive thrombus of left peroneal veins. 2. The left lower extremity deep veins above the knee are patent. 3. No evidence of right lower extremity deep venous thrombosis. Electronically signed by: Fortino Delgado MD (02/05/2020 5:21 PM) [facility]
--- NOTE | 2020-02-05 17:57 | NUR ---
NURSING NOTE IMAGING REPORT REVIEWED WITH DR MAX, NO ORDERS RECEIVED. NOTHING NECESSARY AT THIS TIME. PENDING LABS FOR TOMORROW. AKHIL SILVESTRE.
[2020-02-05 18:12] VITALS: BP 147/83
--- NOTE | 2020-02-05 18:13 | NUR ---
NURSING NOTE CHEST PAIN PT C/O CHEST PAIN AND SOA. PT VITALS OBTAINED, STABLE. ORDERED EKG. DR WINTER GUIDO. PT YELLING AT STAFF DEMANDING "CALL MY DAUGHTER AND HAVE HER SIGN ME OUT OF HERE AND CHECK ME INTO A HOSPITAL NOW OR IM GOING TO CALL THE POLICE AND HAVE HER ARRESTED". WHEN THIS NURSE IS TRYING TO ASK PT QUESTIONS/ASSES HER, SHE CONTINUES TO YELL "MITCHELL SAID I CANT HAVE AN EKG EVERY TIME I HAVE CHEST PAIN". PT PUTTING HER HAND UP IN THIS NURSES FACE WHEN THIS NURSE TRYING TO EXPLAIN TO PT THAT IF SHE IS TRULY HAVING CHEST PAIN, AN EKG WILL BE DONE AT THIS TIME TO ASSESS HER. PT VERY SHORT AND BLUNT WITH STAFF, WONT ALLOW/EXCEPT EXPLANATION FROM STAFF. WILL CONTINUE TO MONITOR. AKHIL SILVESTRE.
[2020-02-05] MEDS: MIRTAZAPINE 15 MG TABLET PO SCH (20:10)
[2020-02-05] MEDS: traZODone 50 MG TABLET. PO SCH (20:10)
[2020-02-05] MEDS: SIMVASTATIN 20 MG TABLET PO SCH (20:11)
[2020-02-05] MEDS: DIVALPROEX ER 500 MG TAB.ER.24H PO SCH (20:11)
[2020-02-05] MEDS: risperiDONE 0.25 MG TABLET. PO SCH (20:11)
[2020-02-05] MEDS: LATANOPROST 0.005% OPHTH SOLUTION 2.5ML BOTTLE. OS SCH (20:59)
[2020-02-05] MEDS: ACETAMINOPHEN 325 MG TABLET PO PRN (21:48)
--- NOTE | 2020-02-05 22:17 | PDOC ---
Exam Note: Epifanio Note: Please also refer to the separate dictated note~for this date of service dictated separately.~Patient seen individually. Discussed the patient with Nursing staff reviewed the chart.~Reviewed interim history and current functioning. Reviewed vital signs,~Labs/ Radiology~and current medications noted below. Continue current treatment with the changes noted in the dictated addendum note Assessment: Vital Signs/I&O: Vital Signs Date Time Temp Pulse Resp B/P (MAP) Pulse Ox O2 Delivery O2 Flow Rate FiO2 02/05/20 18:12 86 18 147/83 (104) 100 Room Air 02/05/20 16:49 98.3 I & O 02/04/20 02/04/20 02/05/20 14:59 22:59 06:59 Intake Total 960 ml 480 ml Balance 960 ml 480 ml Labs: Laboratory Tests Test 02/05/20 18:41 D-Dimer (Diamante) 3.19 mg/L (0.00-0.50) H Troponin I Quantitative < 0.017 ng/mL (0-0.055) Current Medications: I have reviewed the current psychotropics carefully including drug interactions. Risk benefit ratio favors no change other than as noted in my dictated progress note. Diagnosis: Problems: (1) Cognitive impairment (2) Bipolar disorder with psychotic features (3) Impulse control disorder, unspecified (4) Anxiety disorder, unspecified SABRINA SHANNON MD Feb 05, 2020 22:17
--- NOTE | 2020-02-05 22:29 | NUR ---
Pt withdrawn to room at shift change. Pt calm with a flat affect, tangental. Pt reports that "when that report comes back, I'm going to have my daughter arrested! She's gonna go to [facility]." Pt ruminates on the problems with her children and her current situation. Pt compliant with medications this evening.
--- NOTE | 2020-02-05 23:04 | EKG ---
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
[2020-02-06] MEDS: HYDROcodone/APAP 10/325 1 TAB TABLET PO PRN (02:27)
--- NOTE | 2020-02-06 02:36 | NUR ---
Pt c/o severe LLE and lower back pain at this time. PRN Lortab administered as ordered.
[2020-02-06 05:37] VITALS: BP 118/57
[2020-02-06] MEDS: LEVOTHYROXINE 100 MCG TABLET PO SCH (05:47)
[2020-02-06 07:02] LABS: CALCIUM 8.4 mg/dL (8.5-10.1); CREATININE 0.9 mg/dL (0.6-1.0); GFR 59.7; POTASSIUM 4.2 mmol/L (3.5-5.1)
--- NOTE | 2020-02-06 07:21 | PDOC ---
Exam Note: Epifanio Note: This note is a late entry for 02/05/2020 covers elements not covered in my initial note. Subjective: The patient was seen individually in the evening of 02/05/2020. Per Kelley RN she slept 6-1/4 hours previous night. She has been somewhat withdrawn, flat in her affect, tearful in the morning, very mean, paranoid, dismissive, angry, irritable with certain staff members. She did have psychological testing with Dr. Pickens, report is awaited. Review of Systems: Ambulation impaired with walker. No CV, , pulmonary, eye system symptoms on review. She has vague somatic symptoms. Mental Status Exam: Oriented to herself and situation. Speech is coherent, still somewhat pressured. Abstraction is fair. Computation is impaired. Language function is intact. Attention span short. Mood and affect remains grandiose but better than before. However this evening, quite a change she states she wants to continue her hospitalization for medical stabilization rather than going home and coming back and forth for further testing. No suicidal or homicidal ideation. She remains somewhat paranoid. Laboratory Data: Reviewed. Impression: Bipolar 1 disorder manic with psychotic features. Mild cognitive impairment. Anxiety disorder unspecified. Impulse control disorder unspecified. Plan: Continue psychotropics from initial note but may need to increase Risperdal in due course. Valproic acid level is therapeutic. Rest unchanged. Assessment: Vital Signs/I&O: Vital Signs Date Time Temp Pulse Resp B/P (MAP) Pulse Ox O2 Delivery O2 Flow Rate FiO2 02/06/20 05:37 97.8 80 18 118/57 (77) 96 Room Air I & O 02/05/20 02/05/20 02/06/20 15:00 23:00 07:00 Intake Total 600 ml 480 ml Balance 600 ml 480 ml Labs: Laboratory Tests Test 02/05/20 18:41 02/06/20 06:24 D-Dimer (Diamante) 3.19 mg/L (0.00-0.50) H Troponin I Quantitative < 0.017 ng/mL (0-0.055) Sodium Level 141 mmol/L (136-145) Potassium Level 4.2 mmol/L (3.5-5.1) Chloride Level 106 mmol/L (98-107) Carbon Dioxide Level 28 mmol/L (21-32) Anion Gap 7 (6-14) Blood Urea Nitrogen 19 mg/dL (7-20) Creatinine 0.9 mg/dL (0.6-1.0) Estimated GFR (Cockcroft-Gault) 59.7 Glucose Level 105 mg/dL (70-99) H Calcium Level 8.4 mg/dL (8.5-10.1) L ME-Mit-G-Type Natriuretic Peptide 311 pg/mL (0-449) Current Medications: I have reviewed the current psychotropics carefully including drug interactions. Risk benefit ratio favors no change other than as noted in my dictated progress note. Diagnosis: Problems: (1) Cognitive impairment (2) Bipolar disorder with psychotic features (3) Impulse control disorder, unspecified (4) Anxiety disorder, unspecified SABRINA SHANNON MD Feb 06, 2020 07:21
[2020-02-06] MEDS: ASCORBIC ACID 500 MG TABLET PO SCH ×2 (09:32→21:07)
[2020-02-06] MEDS: OMEGA-3 FATTY ACIDS/FISH OIL 1,000 MG CAPSULE. PO SCH ×3 (09:32→21:07)
[2020-02-06] MEDS: ASPIRIN CHEWABLE 81 MG TABLET. PO SCH (09:32)
[2020-02-06] MEDS: PANTOPRAZOLE 40 MG TABLET. PO SCH (09:32)
[2020-02-06] MEDS: BRIMONIDINE 0.2% OPHTH SOLUTION 5ML BOTTLE. OS SCH ×3 (09:33→21:08)
[2020-02-06] MEDS: DORZOLAMIDE 2% OPHTH SOLUTION 10ML BOTTLE. OS SCH ×3 (09:33→21:08)
[2020-02-06] MEDS: cycloSPORINE 0.05% OPTH 1 DROP DROPERETTE OU SCH ×2 (09:33→21:08)
--- NOTE | 2020-02-06 10:43 | NUR ---
WEEKLY ACTIVITY THERAPY NOTE Date of Admission: 01/28/20 Date of AT Assessment: 01/30/2020 Precipitating behaviors that initiated intake and admission: Patient is delusional, paranoid, refusing medications, refused to eat for 4 days, reportedly stated she wanted to and be with her Goal aimed: to increase time management and socialization skills. Initial Goal: Pt will participate in at least two activity therapy group or individual sessions per week. Weekly progress towards goal: 08/08, did not achieve Group participation level: moderate in one group Weekly highlights: sat with group on Monday morning and attempted to guess tv theme songs Behaviors observed: usually in her room or hallway, write in journal, listens to ezekiel music, read Bible Plan: no change to goal Beneficial adaptations:
--- NOTE | 2020-02-06 11:12 | NUR ---
Nursing note: Pt withdrawn to her room this morning after breakfast. She was pleasant, med compliant, and cooperative with her assessment. Pt denied having any pain this morning. She had a list of phone numbers that she stated was "imperative" for SW to receive and call the numbers for her. The list was handed off to SW. Pt continues to remain in her room at this time. Will continue to monitor.
[2020-02-06 15:39] VITALS: BP 144/83
--- NOTE | 2020-02-06 16:30 | NUR ---
SW did a conference call with pt, pt dtr Dionna and son Renato who wanted to hear pt out and see what she is wanting. SW had pt in the group room and explained to her that her children wanted to talk to her together to see how she was doing. Before pt could talk, SW did want all parties to understand that SW found out that pt has a blood clot in her lower left calf. With the clot being in her calf there will be no treatment, just monitoring. If the clot was in her thigh, they would have started a blood thinner immediately. An ultrasound was ordered for Monday and will plan to keep pt until that time. Pt was then able to update the children on how she was doing. Pt was initially irritated and said why because they don't care. Dionna informed pt that is not true and pt discussed her anger at Dionna as pt was not told that she was coming up "to a psych unit". Pt reports not really understanding why she was even up her because she is not crazy. Dionna explained to pt that she was not eating, was not taking her medications and was not doing well. Dionna went over the telepsych appt in the ER and the recommendation for placement was made. Pt was sent to ICU first as she had some medical concerns and it was mentioned that pt would need psychiatric care there as well. Pt interrupts and tells her dtr that she had the final say that she did not have to allow them to have her admitted. Pt repeated that once she was on the unit and reading this on the wall, she said "oh Lord they put me in the crazy house. You abused your power of NOEMI Dionna and I do not want you on that paperwork anymore". Pt then questioned if they have been touching her money, in which Dionna reports that none of pt money has been touched. Dionna mentioned that side from her utility bills her money is fine. Pt then switched conversation to whether or not her home renovations have been completed yet. Dionna and Renato report that they finished putting screens of the deck and is waiting for the color approval of the deck. Pt questioned if they paid the contractor in full. Dionna reports that the contractor only gets paid when he completes a job. Pt questioned if the appliances in [facility] kitchen are in and she stated "those are paid for in full at [employer]. And my chair lift needs to be there when I leave". It was explained that they will not install the actual chair unless pt was there. Pt then asked SW to take note of the color of the chair in the group room as she likes the colors and wants to repaint her house that color also. Pt then brought conversation back to her care and told Dionna and Renato that they do not know what it is like to be in here. "Some of these people are really sick and one lady keeps coming into my room. I'm not scared of her, but if she puts her hands on me as God is my witness, I'll rough her up". Pt reports understanding that this is all a misunderstanding and the communication through the transition process was poor. Pt discussed the factor that staff treat people like dogs and bark commands on what to do. She mentioned that there are specific staff on the unit that are like Salbador German and his gang. She feels that they purposely pick on her because of her color and change their behaviors when "more important people are around". Pt reports that she is beginning to not believe anyone "and I'll say this in front of Lora. I don't know if I trust her"; meanwhile, pt is holding SW hand as she makes that statement. Pt reports that she wants to go home. She began to cry and noted that she needs to go home as she has a nail appointment at [facility] at 9:00 Monday and a hair appointment. "I don't want to be here. I want to go home, you just don't understand. They treatment like a dog without a tail and I'm not getting enough to eat here. They feed me junk and you know I eat heartily at home". Pt planned to have a FOXING CUTTING MACHINE OPERATOR, Thalia Albarran, come see her as she was supposed to be in her home at least 4 days a week. Pt would rather be at home and get that care than to be on [facility]. She reports preferring to be some place where she can get the care she needs because there are too many pts here and she does not feel she gets the attention to her care that is truly needed. All parties reiterated with pt is that the ultimate goal is for pt to go home. However, pt has to continue to take her medications and look towards getting well. Instead of focusing on getting out,the goal is to focus on pt getting well and eventually getting home. Pt asked if she could go to rehab over at [place] and SW explained that could be discussed at the time of discharge but the blood clot needs to be settled here or pt would be re-admitted to the hospital. Pt continued to be tearful. Pt children told pt that they loved her and pt stated "you couldn't have because you put me here". Pt dtr started to argue that statement, but pt son ended the call and told Dionna "leave it be and just hang up". Dionna asked SW to call her back once pt gets settled for dinner.
--- NOTE | 2020-02-06 17:45 | NUR ---
NOY met with pt son who wanted to drop off battery for pt hearing aids. Pt son wanted to discuss if rehab was an option for pt. He asked if there was a difference between a regular rehab versus a rehab that cares for Dementia pts. Pt son reports that he feels like pt being here was worse as pt is angry and is not willing to look at or change anything. Pt son reports that pt was horrible to his sister and he is still learning about things that pt did to her; however, he is trying to get his sister to learn to let go. He does not want their history or their dislike for one another potential create a recipe for disaster. Renato was very thankful for the help that NOY and the team is doing for his mother despite how difficult she is; "just pick and choose your battles with her. Not everything needs to be a fight". NOY will continue to follow-up with pt family.
--- NOTE | 2020-02-06 18:40 | NUR ---
NOY received a call from Dionna who wanted to ensure from NOY that she understands that her mother is not ready based off the conversation earlier today. Renato and Dionna talked about the Swing bed option at [place] and NOY explained that once pt treatment is completed on [facility], her next step could be down to Swing Bed and then home. Dionna would like more information on this topic, but NOY asked to discuss it tomorrow as NOY was planning to leave for the day.
[2020-02-06] MEDS: DIVALPROEX ER 500 MG TAB.ER.24H PO SCH (21:07)
[2020-02-06] MEDS: traZODone 50 MG TABLET. PO SCH (21:07)
[2020-02-06] MEDS: MIRTAZAPINE 15 MG TABLET PO SCH (21:07)
[2020-02-06] MEDS: SIMVASTATIN 20 MG TABLET PO SCH (21:07)
[2020-02-06] MEDS: LATANOPROST 0.005% OPHTH SOLUTION 2.5ML BOTTLE. OS SCH (21:08)
[2020-02-06] MEDS: risperiDONE 1 MG TABLET. PO SCH (21:16)
[2020-02-06] MEDS: ACETAMINOPHEN 325 MG TABLET PO PRN (21:16)
--- NOTE | 2020-02-06 22:06 | PDOC ---
Exam Note: Epifanio Note: Please also refer to the separate dictated note~for this date of service dictated separately.~Patient seen individually. Discussed the patient with Nursing staff reviewed the chart.~Reviewed interim history and current functioning. Reviewed vital signs,~Labs/ Radiology~and current medications noted below. Continue current treatment with the changes noted in the dictated addendum note Assessment: Vital Signs/I&O: Vital Signs Date Time Temp Pulse Resp B/P (MAP) Pulse Ox O2 Delivery O2 Flow Rate FiO2 02/06/20 15:39 98.4 103 18 144/83 (103) 100 02/06/20 05:37 Room Air I & O 02/05/20 02/05/20 02/06/20 15:00 23:00 07:00 Intake Total 600 ml 480 ml Balance 600 ml 480 ml Labs: Laboratory Tests Test 02/06/20 06:24 Sodium Level 141 mmol/L (136-145) Potassium Level 4.2 mmol/L (3.5-5.1) Chloride Level 106 mmol/L (98-107) Carbon Dioxide Level 28 mmol/L (21-32) Anion Gap 7 (6-14) Blood Urea Nitrogen 19 mg/dL (7-20) Creatinine 0.9 mg/dL (0.6-1.0) Estimated GFR (Cockcroft-Gault) 59.7 Glucose Level 105 mg/dL (70-99) H Calcium Level 8.4 mg/dL (8.5-10.1) L UY-Jav-J-Type Natriuretic Peptide 311 pg/mL (0-449) Current Medications: Meds: Current Medications Medications (Trade) Dose Ordered Sig/Sariah Route PRN Reason Start Time Stop Time Status Last Admin Dose Admin Risperidone (RisperDAL) 1 mg QHS PO 02/06/20 21:00 02/06/20 21:16 I have reviewed the current psychotropics carefully including drug interactions. Risk benefit ratio favors no change other than as noted in my dictated progress note. Diagnosis: Problems: (1) Cognitive impairment (2) Bipolar disorder with psychotic features (3) Impulse control disorder, unspecified (4) Anxiety disorder, unspecified SABRINA SHANNON MD Feb 06, 2020 22:06
[2020-02-07] MEDS: HYDROcodone/APAP 10/325 1 TAB TABLET PO PRN ×2 (01:42→15:37)
[2020-02-07 05:18] VITALS: BP 104/57
[2020-02-07] MEDS: LEVOTHYROXINE 100 MCG TABLET PO SCH (06:20)
[2020-02-07] MEDS: DORZOLAMIDE 2% OPHTH SOLUTION 10ML BOTTLE. OS SCH ×3 (07:59→20:15)
[2020-02-07] MEDS: cycloSPORINE 0.05% OPTH 1 DROP DROPERETTE OU SCH ×2 (07:59→20:15)
[2020-02-07] MEDS: PANTOPRAZOLE 40 MG TABLET. PO SCH (07:59)
[2020-02-07] MEDS: ASPIRIN CHEWABLE 81 MG TABLET. PO SCH (07:59)
[2020-02-07] MEDS: OMEGA-3 FATTY ACIDS/FISH OIL 1,000 MG CAPSULE. PO SCH ×3 (07:59→20:16)
[2020-02-07] MEDS: ASCORBIC ACID 500 MG TABLET PO SCH ×2 (07:59→20:17)
[2020-02-07] MEDS: BRIMONIDINE 0.2% OPHTH SOLUTION 5ML BOTTLE. OS SCH ×3 (08:00→20:15)
[2020-02-07] MEDS: FUROSEMIDE 20 MG TABLET PO SCH (08:01)
[2020-02-07] MEDS: POTASSIUM CHLORIDE 10 MEQ TABLET.ER. PO SCH (08:02)
--- NOTE | 2020-02-07 14:00 | NUR ---
Patient asking to see WELL DRILL OPERATOR, pts nurse asked nursing dry cell assembly supervisor to come see patient. This RN is charge nurse and asked what the patient needed the dry cell assembly supervisor for, pts nurse stated patient had complaints about police shift commander. This RN has cared for patient, this nurse called off dry cell assembly supervisor and went to speak with patient herself to see if issues could be resolved. Pt stated she was upset that her sheets weren't on the bed, wanted tylenol and needed a new brief. RN got a new brief for patient, sheets were already on the bed, and this RN informed pts RN that patient needed tylenol. This RN saw no reason to get dry cell assembly supervisor involved at this time. WCTM.
--- NOTE | 2020-02-07 15:50 | NUR ---
NOY contacted Dionna to discuss with her pt psychological testing report and the decision in tx team to let pt go tomorrow. Pt is taking her medications; however, with pt attitude and demeanor, she is not willing to accept help from the team. Dionna got upset and said what do you want us to do. Because you're telling me that she isn't any different and we just need to deal with that". NOY explained to Dionna that medications are not going to make pt 100% better. And if pt is in the head space of not willing to participate in the program, it will not do her any good. At 84, Dionna is expecting pt to be a "new woman" and NOY explained that her expectation is unrealistic. Dionna feels like one's personality can change, and NOY said yes if they want to change. In this phase, pt does not feel like she has done anything wrong and convincing her otherwise, is not going to happen. "So what tools can you give us to handle her. What are you wanting me to do". NOY explained that they are going to have to work with pt where she is at. There is not anything that will change personality unless it is something that pt wants to do. Pick and choose battles, because not everything needs to be a fight with her and she cannot be made to necessarily do what is asked of her. Ways to get her to take her medications and not "fly off the handle" will need to be creatively placed. Dionna and NOY discussed that pt needs medical attention and a counselor more than anything. In which counseling is not something that we offer here; we do not have clinical counselors that can sit and do "talk therapy" with her. Pt sister remained frustrated and asked to call her brother together. Pt brother Renato was added to the call and NOY went over everything that NOY went over with Dionna. Dionna is requesting that all parties go over this with pt and hear what pt has to say. Addendum: 02/07/20 at 1613 by JUANA VILLAFUERTE Note should be dated as 06 February 2020 @ [id number]
[2020-02-07 16:01] VITALS: BP 103/55
--- NOTE | 2020-02-07 16:33 | NUR ---
Pt has had multiple complaints regarding her care here. Pt also wanting to leave, wanting to call dtr and wanting to talk to ICU NURSE prize coordinator. Have attempted to placate pt as much s possible and is in better spirits this afternoon. C/O LLE pain in afternoon. Tylenol per pt request. Have spoken with dtr several times regarding plan of care for pt. SW to talk with dtr also.
[2020-02-07] MEDS ORDERED: PHENYLEPH/MINERAL OIL/PETROLAT RECTAL OINTMENT TUBE. RC PRN (19:00)
[2020-02-07] MEDS: LATANOPROST 0.005% OPHTH SOLUTION 2.5ML BOTTLE. OS SCH (20:15)
[2020-02-07] MEDS: DIVALPROEX ER 500 MG TAB.ER.24H PO SCH (20:16)
[2020-02-07] MEDS: traZODone 50 MG TABLET. PO SCH (20:17)
[2020-02-07] MEDS: risperiDONE 1 MG TABLET. PO SCH (20:17)
[2020-02-07] MEDS: SIMVASTATIN 20 MG TABLET PO SCH (20:18)
[2020-02-07] MEDS: MIRTAZAPINE 15 MG TABLET PO SCH (20:18)
--- NOTE | 2020-02-07 22:16 | PDOC ---
Exam Note: Epifanio Note: Please also refer to the separate dictated note~for this date of service dictated separately.~Patient seen individually. Discussed the patient with Nursing staff reviewed the chart.~Reviewed interim history and current functioning. Reviewed vital signs,~Labs/ Radiology~and current medications noted below. Continue current treatment with the changes noted in the dictated addendum note Assessment: Vital Signs/I&O: Vital Signs Date Time Temp Pulse Resp B/P (MAP) Pulse Ox O2 Delivery O2 Flow Rate FiO2 02/07/20 16:01 97.6 85 16 103/55 (71) 100 02/07/20 02:42 Room Air I & O 02/06/20 02/06/20 02/07/20 15:00 23:00 07:00 Intake Total 720 ml 240 ml Balance 720 ml 240 ml Current Medications: Meds: Current Medications Medications (Trade) Dose Ordered Sig/Sariah Route PRN Reason Start Time Stop Time Status Last Admin Dose Admin Furosemide (Lasix) 20 mg DAILY PO 02/07/20 09:00 02/07/20 08:01 Potassium Chloride (Klor-Con) 10 meq DAILYWBKFT PO 02/07/20 08:00 02/07/20 08:02 I have reviewed the current psychotropics carefully including drug interactions. Risk benefit ratio favors no change other than as noted in my dictated progress note. Diagnosis: Problems: (1) Cognitive impairment (2) Bipolar disorder with psychotic features (3) Impulse control disorder, unspecified (4) Anxiety disorder, unspecified SABRINA SHANNON MD Feb 07, 2020 22:16
--- NOTE | 2020-02-07 23:59 | NUR ---
Patient is in her room on assumption of care. She is flat, but in pleasant spirits. Much less demanding this shift. Compliant with medications and assessments. Cooperative with HS cares and shower. No agitation. Denies any pain this shift. Denies SI. Patient appears to be sleeping comfortably at present time. Will continue to monitor.
[2020-02-08 05:40] VITALS: BP 117/72
[2020-02-08] MEDS: LEVOTHYROXINE 100 MCG TABLET PO SCH (05:47)
--- NOTE | 2020-02-08 07:45 | PDOC ---
Exam Note: Epifanio Note: This note is a late entry for 02/06/2020 covers elements not covered in my initial note. Subjective: The patient was seen individually in the morning of 02/06/2020 with treatment team meeting with Melissa LANDAVERDE, Emy (social service staff), [facility] staff. Also reviewed results of the neuropsychological testing completed by Dr. Pickens, psychologist from the [facility]. This shows early neurocognitive deficits in addition to her diagnosis of bipolar disorder. Also discussed with Tammy LANDAVERDE in the evening. The patient slept 4-1/2 hours previous night. She remains demanding, labile, grandiose. She does have DVT left leg and per nursing report over-exaggerates symptoms. We will defer medical management to Dr. Stafford. The patient is agreeable to continuing her hospitalization due to the new medical condition and feels she needs to be here which will give us an added benefit to treat and stabilize her psychi atrically. Mary, social service staff had a long family meeting therapy with patients daughter Dionna and son Renato with and without the patient to discuss placement options and outpatient treatment at the [facility] after she leaves from here. Review of Systems: Ambulation impaired with walker. No CV, , pulmonary, eye, ENT system symptoms on review. Mental Status Exam: Oriented to herself and situation. Speech is coherent, somewhat pressured. She feigns that she cannot hear though she seems to have selective hearing, quite evident. I met with her at length in her room. Abstraction is fair. Computation is impaired. Language function is intact. Attention span short. Mood and affect demanding, labile, grandiose. Laboratory Data: Reviewed. Impression: Bipolar 1 disorder manic with psychotic features. Mild cognitive impairment. Anxiety disorder unspecified. Impulse control disorder unspecified. Plan: Continue Depakote ER 1000 mg h.s. level therapeutic at 59, Remeron 50 mg h.s., Klonopin, Zyprexa p.r.n., Risperdal will be increased from 0.75 mg h.s. to 1 mg h.s. Continue trazodone p.r.n. Rest unchanged. Assessment: Vital Signs/I&O: Vital Signs Date Time Temp Pulse Resp B/P (MAP) Pulse Ox O2 Delivery O2 Flow Rate FiO2 02/08/20 05:40 98.4 79 20 117/72 (87) 97 Room Air I & O 0 02/07/20 02/07/20 02/08/20 15:00 23:00 07:00 Intake Total 960 ml 480 ml 240 ml Balance 960 ml 480 ml 240 ml Current Medications: Meds: Current Medications Medications (Trade) Dose Ordered Sig/Sariah Route PRN Reason Start Time Stop Time Status Last Admin Dose Admin Furosemide (Lasix) 20 mg DAILY PO 02/07/20 09:00 02/07/20 08:01 Potassium Chloride (Klor-Con) 10 meq [id number] PO 02/07/20 08:00 02/07/20 08:02 I have reviewed the current psychotropics carefully including drug interactions. Risk benefit ratio favors no change other than as noted in my dictated progress note. Diagnosis: Problems: (1) Cognitive impairment (2) Bipolar disorder with psychotic features (3) Impulse control disorder, unspecified (4) Anxiety disorder, unspecified SABRINA SHANNON MD Feb 08, 2020 07:45
--- NOTE | 2020-02-08 08:10 | PDOC ---
Exam Note: Epifanio Note: This note is a late entry for 02/07/2020 covers elements not covered in my initial note. Subjective: The patient was seen individually in the evening of 02/07/2020. Per Augusta LANDAVERDE she slept 2 hours previous night. She has been hyperverbal, grandiose. Augusta LANDAVERDE has spent an extended period of time with the patient helping her with many requests she has had. She had eaten 4 cups of ice-cream in the evening as I met with her and was quite proud of this and seemed much more congenial, appropriate, smiling, less paranoid. She seems to respond better if some of her demands are met. Nursing staff have been trying to compensate for this as best as they can. Review of Systems: Ambulation impaired with walker. No CV, , pulmonary, eye system symptoms on review. Mental Status Exam: Oriented to herself and situation. Speech is coherent, still somewhat pressured. Abstraction is fair. Computation is impaired. Language function is intact. Attention span short. Mood and affect remains less paranoid, grandiose. Laboratory Data: Reviewed. Impression: Bipolar 1 disorder manic with psychotic features. Mild cognitive impairment. Anxiety disorder unspecified. Impulse control disorder u nspecified. Plan: Continue psychotropics from initial note. Risperdal has been increased to 1 mg p.o. h.s., Depakote ER 1000 mg h.s. level therapeutic. Assessment: Vital Signs/I&O: Vital Signs Date Time Temp Pulse Resp B/P (MAP) Pulse Ox O2 Delivery O2 Flow Rate FiO2 02/08/20 05:40 98.4 79 20 117/72 (87) 97 Room Air I & O 02/07/20 02/07/20 02/08/20 14:59 22:59 06:59 Intake Total 960 ml 480 ml 240 ml Balance 960 ml 480 ml 240 ml Current Medications: Meds: Current Medications Medications (Trade) Dose Ordered Sig/Sariah Route PRN Reason Start Time Stop Time Status Last Admin Dose Admin Furosemide (Lasix) 20 mg DAILY PO 02/07/20 09:00 02/07/20 08:01 I have reviewed the current psychotropics carefully including drug interactions. Risk benefit ratio favors no change other than as noted in my dictated progress note. Diagnosis: Problems: (1) Cognitive impairment (2) Bipolar disorder with psychotic features (3) Impulse control disorder, unspecified (4) Anxiety disorder, unspecified SABRINA SHANNON MD Feb 08, 2020 08:10
[2020-02-08] MEDS: POTASSIUM CHLORIDE 10 MEQ TABLET.ER. PO SCH (08:21)
[2020-02-08] MEDS: ASPIRIN CHEWABLE 81 MG TABLET. PO SCH (08:21)
[2020-02-08] MEDS: OMEGA-3 FATTY ACIDS/FISH OIL 1,000 MG CAPSULE. PO SCH ×3 (08:22→22:30)
[2020-02-08] MEDS: BRIMONIDINE 0.2% OPHTH SOLUTION 5ML BOTTLE. OS SCH ×3 (08:22→22:34)
[2020-02-08] MEDS: cycloSPORINE 0.05% OPTH 1 DROP DROPERETTE OU SCH ×2 (08:22→22:30)
[2020-02-08] MEDS: DORZOLAMIDE 2% OPHTH SOLUTION 10ML BOTTLE. OS SCH ×3 (08:22→22:33)
[2020-02-08] MEDS: FUROSEMIDE 20 MG TABLET PO SCH (08:23)
[2020-02-08] MEDS: ASCORBIC ACID 500 MG TABLET PO SCH ×2 (08:23→22:31)
[2020-02-08] MEDS: PANTOPRAZOLE 40 MG TABLET. PO SCH (08:23)
--- NOTE | 2020-02-08 09:57 | NUR ---
Pt is calm, cooperative, compliant. No agitation, no aggression, no hallucinations, no delusions. Pt is compliant with her medications and assessment.
[2020-02-08 10:16] LABS: BASO % 1 % (0-3); EOS # 0.1 x10^3/uL (0.0-0.7); EOS % 1 % (0-3); HEMATOCRIT 36.9 % (36.0-47.0); HEMOGLOBIN 11.9 g/dL (12.0-15.5); LYMPH # 0.9 x10^3/uL (1.0-4.8); LYMPH % 19 % (24-48); MEAN CORPUSCULAR HEMOGLOBIN 29 pg (25-35); MEAN CORPUSCULAR HGB CONC 32 g/dL (31-37); MEAN CORPUSCULAR VOLUME 89 fL (79-100); MONO # 0.6 x10^3/uL (0.0-1.1); MONO % 12 % (0-9); NEUT # 3.2 x10^3uL (1.8-7.7); NEUT % 68 % (31-73); PLATELET COUNT 147 x10^3/uL (140-400); RED BLOOD COUNT 4.16 x10^6/uL (3.50-5.40); RED CELL DISTRIBUTION WIDTH 15.2 % (11.5-14.5); WHITE BLOOD COUNT 4.7 x10^3/uL (4.0-11.0)
[2020-02-08 10:36] LABS: ALBUMIN 2.8 g/dL (3.4-5.0); ALBUMIN/GLOBULIN RATIO 0.9 (1.0-1.7); CALCIUM 8.3 mg/dL (8.5-10.1); CREATININE 1.2 mg/dL (0.6-1.0); GFR 42.8; TOTAL BILIRUBIN 0.2 mg/dL (0.2-1.0); TOTAL PROTEIN 5.9 g/dL (6.4-8.2)
[2020-02-08 13:24] LABS: % ATYL 2 % (0-0); % BANDS 1 % (0-9); % EOS 1 % (0-5); % LYMPHS 23 % (24-48); % MONOS 9 % (0-10); % MYELOS 1 % (0-0); % SEGS 63 % (35-66)
--- NOTE | 2020-02-08 13:30 | NUR ---
When pt was offered her afternoon medication pt stated she was not going to "drink that water." Nurse offered pt water to pt that was in her blue cup by the bed. Pt then stated that "you can put I refused that." because I'm not drinking that water. Nurse reminded her she was offered an alternative water cup and nurse showed pt the blue cup of water. Pt continued to argue with nurse. Nurse told pt to have a nice afternoon and if she changes her mind about her medication to let the nurse know.
[2020-02-08 13:36] LABS: PLT ESTIMATE ADEQUATE (ADEQUATE)
--- NOTE | 2020-02-08 14:00 | NUR ---
When nurse was cleaning up rooms pt came in her room and asked what are you doing? Nurse informed pt that nurse was picking up trash. Pt stated "who are you to say what is trash and what is not?" Nurse removed Styrofoam cup that was on the floor, straw, piece of paper, a folded up tray menu, a popcorn bag, a plastic spoon. Nurse took out pts trash and put pts clothing in the closet. Pt stated leave my bed alone I need my legs up I have a DVT. Nurse informed her that she was not going to adjust her bed, she was just putting the break on her bed and picking up trash. When the nurse left the room the pt mumbled something at the nurse.
--- NOTE | 2020-02-08 16:30 | NUR ---
Spoke to pts daughter regarding pts day. When informed dtr that pt refused her 1400 medication d/t pt not liking the water source pts DPOA asked if bottled water was available to her. Nurse explained we do not keep bottled water on the unit. Daughter asked where the water for her other medication comes from nurse explained that there are many water sources on the unit so it depends on the pts location for example when the pt is in the dining room the water comes out of the tap from in there, if the pt is in the dayroom the water comes from the fountain in the dayroom. Pts daughter then asked if her water for medication administration could be gotten from the tap in the dining room specifically. Nurse explained that the pt declined her medication even after she was given an alternative cup of water. Pts daughter asked if we were frustrated with her mom. Nurse stated no as her mother cannot help it she is bipolar. Pts daughter stated "I wish you wouldn't say that." She also asked what we were doing to get her to take her medication. Nurse explained that her afternoon medication was a fish oil capsule and since the pt was very argumentative the nurse did not push her to take it and the nurse gave the pt the opportunity to seek out staff when she was ready to take her medication. Pts daughter stated she is just trying to do what she can since she can't she her. Nurse provided emotional support and thanked her for calling.
[2020-02-08 16:48] VITALS: BP 117/60
--- NOTE | 2020-02-08 22:29 | PDOC ---
Exam Note: Epifanio Note: Please also refer to the separate dictated note~for this date of service dictated separately.~Patient seen individually. Discussed the patient with Nursing staff reviewed the chart.~Reviewed interim history and current functioning. Reviewed vital signs,~Labs/ Radiology~and current medications noted below. Continue current treatment with the changes noted in the dictated addendum note Assessment: Vital Signs/I&O: Vital Signs Date Time Temp Pulse Resp B/P (MAP) Pulse Ox O2 Delivery O2 Flow Rate FiO2 02/08/20 16:48 98.0 85 16 117/60 (79) 97 Room Air I & O 02/07/20 02/07/20 02/08/20 15:00 23:00 07:00 Intake Total 960 ml 480 ml 240 ml Balance 960 ml 480 ml 240 ml Labs: Laboratory Tests Test 02/08/20 10:00 White Blood Count 4.7 x10^3/uL (4.0-11.0) Red Blood Count 4.16 x10^6/uL (3.50-5.40) Hemoglobin 11.9 g/dL (12.0-15.5) L Hematocrit 36.9 % (36.0-47.0) Mean Corpuscular Volume 89 fL (79-100) Mean Corpuscular Hemoglobin 29 pg (25-35) Mean Corpuscular Hemoglobin Concent 32 g/dL (31-37) Red Cell Distribution Width 15.2 % (11.5-14.5) H Platelet Count 147 x10^3/uL (140-400) Neutrophils (%) (Auto) 68 % (31-73) Lymphocytes (%) (Auto) 19 % (24-48) L Monocytes (%) (Auto) 12 % (0-9) H Eosinophils (%) (Auto) 1 % (0-3) Basophils (%) (Auto) 1 % (0-3) Neutrophils # (Auto) 3.2 x10^3uL (1.8-7.7) Lymphocytes # (Auto) 0.9 x10^3/uL (1.0-4.8) L Monocytes # (Auto) 0.6 x10^3/uL (0.0-1.1) Eosinophils # (Auto) 0.1 x10^3/uL (0.0-0.7) Basophils # (Auto) 0.0 x10^3/uL (0.0-0.2) Segmented Neutrophils % 63 % (35-66) Band Neutrophils % 1 % (0-9) Lymphocytes % 23 % (24-48) L Atypical Lymphocytes % (Manual) 2 % (0-0) H Monocytes % 9 % (0-10) Eosinophils % 1 % (0-5) Myelocytes % 1 % (0-0) H Platelet Estimate Adequate (ADEQUATE) Sodium Level 141 mmol/L (136-145) Potassium Level 4.0 mmol/L (3.5-5.1) Chloride Level 106 mmol/L (98-107) Carbon Dioxide Level 27 mmol/L (21-32) Anion Gap 8 (6-14) Blood Urea Nitrogen 25 mg/dL (7-20) H Creatinine 1.2 mg/dL (0.6-1.0) H Estimated GFR (Cockcroft-Gault) 42.8 BUN/Creatinine Ratio 21 (6-20) H Glucose Level 95 mg/dL (70-99) Calcium Level 8.3 mg/dL (8.5-10.1) L Total Bilirubin 0.2 mg/dL (0.2-1.0) Aspartate Amino Transferase (AST) 12 U/L (15-37) L Alanine Aminotransferase (ALT) 14 U/L (14-59) Alkaline Phosphatase 56 U/L (46-116) Total Protein 5.9 g/dL (6.4-8.2) L Albumin 2.8 g/dL (3.4-5.0) L Albumin/Globulin Ratio 0.9 (1.0-1.7) L Current Medications: I have reviewed the current psychotropics carefully including drug interactions. Risk benefit ratio favors no change other than as noted in my dictated progress note. Diagnosis: Problems: (1) Cognitive impairment (2) Bipolar disorder with psychotic features (3) Impulse control disorder, unspecified (4) Anxiety disorder, unspecified SABRINA SHANNON MD Feb 08, 2020 22:29
[2020-02-08] MEDS: SIMVASTATIN 20 MG TABLET PO SCH (22:31)
[2020-02-08] MEDS: traZODone 50 MG TABLET. PO SCH (22:32)
[2020-02-08] MEDS: risperiDONE 1 MG TABLET. PO SCH (22:32)
[2020-02-08] MEDS: MIRTAZAPINE 15 MG TABLET PO SCH (22:33)
[2020-02-08] MEDS: DIVALPROEX ER 500 MG TAB.ER.24H PO SCH (22:33)
[2020-02-08] MEDS: LATANOPROST 0.005% OPHTH SOLUTION 2.5ML BOTTLE. OS SCH (22:34)
--- NOTE | 2020-02-08 23:59 | NUR ---
Patient is in her bathroom at shift change, ringing the segovia. This nurse left report to go see what she needed. She stated "you told me 15 minutes ago that you would get me my wipes and a brief, and you just left me here to rot." Patient was told that this nurse had just arrived and was in the middle of shift report, so it couldn't have been her she had talked to. Patient responded "Well whatever, you don't need to yell at me, it's too late now anyway, I'm done." Nurse retrieved patient the items she requested and told her she would be back shortly to see her. Patient stated "Thanks but no thanks." When report was over, this nurse went to patients room to assess her and give her medications. Patient rolled her eyes at nurse upon entry, and immediately stated "I will take no medications tonight, and you can write me up if you want to. I'm gonna write you all up. My day will come, you just watch. You can't stop me, you can't blind my kind, my day will come, good my words." Before nurse could respond, patient continued "That nurse, Melissa, she came in here and took all my stuff, said she was cleaning, didn't even ask me permission to touch my things. Packed all of my stuff that was left and locked it in the closet. She did that cause I wouldn't take my fish oil pill with water out of the bathroom tap, she was punishing me." This nurse explained to the patient that none of that would have been done to her as punishment, that rooms need to be kept clean for infection control purposes and that belongings are always secured in closets during the day because patients spend a lot of time out of their rooms for meals and activities, that it is done to secure patient belongings from being misplaced. Patient was not accepting of that explanation, and just kept repeating over and over why she wasn't going to take her medications. This nurse told her that she has the right to refuse her medication, gave her the cup of fresh water that was brought to take meds, and told her to come find this nurse when and if she was ready to take her meds. Patient responded "Nope, not gonna do it, write me up like you people do."
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
[2020-02-09] MEDS: LEVOTHYROXINE 100 MCG TABLET PO SCH (05:01)
[2020-02-09 06:09] VITALS: BP 116/73
--- NOTE | 2020-02-09 06:19 | NUR ---
Patient is in better spirits this morning. She was cooperative with medication and vital signs. She requested to please be able to talk to her son and daughter today. She would also like to discuss if it is possible for them to bring her outside food, as she states she is not getting enough food here and feels it's not healthy for her. This nurse assured her that her requests would be communicated to the oncoming shift.
--- NOTE | 2020-02-09 07:37 | PDOC ---
Exam Note: Epifanio Note: This note is a late entry for 02/08/2020 covers elements not covered in my initial note. Subjective: The patient was seen individually in the evening of 02/08/2020. Per Melissa LANDAVERDE she slept 3-3/4 hours previous night. She did well previous night, cooperative, pleasant during the day. She has been irritable in the evening. Refused her medications, took it later. She does have batteries of her hearing aid replaced and was hearing me much better as I met with her. She is smiling, appropriate, interactive with other patients, though nursing staff indicated earlier she was quite irritable, paranoid, demanding, somewhat domineering. Review of Systems: Ambulation impaired with walker. No CV, , pulmonary, eye, ENT system symptoms on review. Mental Status Exam: Oriented to herself and situation. Speech is coherent. Abstraction is fair. Computation is impaired. Language function is intact. Attention span short. Mood and affect less labile. 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 Laboratory Data: Reviewed. 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 Mild cognitive impairment. Anxiety disorder unspecified. Impulse control disorder unspecified. DVT left lower extremity, defer to Dr. Stafford. Plan: Continue psychotropics from initial note. Maintain Depakote ER 1000 mg h.s. Valproic acid level therapeutic at 59. Continue Risperdal 1 mg p.o. h.s. Rest unchanged for now including Remeron, Klonopin, and trazodone. Assessment: Vital Signs/I&O: Vital Signs Date Time Temp Pulse Resp B/P (MAP) Pulse Ox O2 Delivery O2 Flow Rate FiO2 02/09/20 06:09 98.7 80 18 116/73 (87) 97 Room Air I & O 02/08/20 02/08/20 02/09/20 15:00 23:00 07:00 Intake Total 780 ml 120 ml Balance 780 ml 120 ml Labs: Laboratory Tests Test 02/08/20 10:00 White Blood Count 4.7 x10^3/uL (4.0-11.0) Red Blood Count 4.16 x10^6/uL (3.50-5.40) Hemoglobin 11.9 g/dL (12.0-15.5) L Hematocrit 36.9 % (36.0-47.0) Mean Corpuscular Volume 89 fL (79-100) Mean Corpuscular Hemoglobin 29 pg (25-35) Mean Corpuscular Hemoglobin Concent 32 g/dL (31-37) Red Cell Distribution Width 15.2 % (11.5-14.5) H Platelet Count 147 x10^3/uL (140-400) Neutrophils (%) (Auto) 68 % (31-73) Lymphocytes (%) (Auto) 19 % (24-48) L Monocytes (%) (Auto) 12 % (0-9) H Eosinophils (%) (Auto) 1 % (0-3) Basophils (%) (Auto) 1 % (0-3) Neutrophils # (Auto) 3.2 x10^3uL (1.8-7.7) Lymphocytes # (Auto) 0.9 x10^3/uL (1.0-4.8) L Monocytes # (Auto) 0.6 x10^3/uL (0.0-1.1) Eosinophils # (Auto) 0.1 x10^3/uL (0.0-0.7) Basophils # (Auto) 0.0 x10^3/uL (0.0-0.2) Segmented Neutrophils % 63 % (35-66) Band Neutrophils % 1 % (0-9) Lymphocytes % 23 % (24-48) L Atypical Lymphocytes % (Manual) 2 % (0-0) H Monocytes % 9 % (0-10) Eosinophils % 1 % (0-5) Myelocytes % 1 % (0-0) H Platelet Estimate Adequate (ADEQUATE) Sodium Level 141 mmol/L (136-145) Potassium Level 4.0 mmol/L (3.5-5.1) Chloride Level 106 mmol/L (98-107) Carbon Dioxide Level 27 mmol/L (21-32) Anion Gap 8 (6-14) Blood Urea Nitrogen 25 mg/dL (7-20) H Creatinine 1.2 mg/dL (0.6-1.0) H Estimated GFR (Cockcroft-Gault) 42.8 BUN/Creatinine Ratio 21 (6-20) H Glucose Level 95 mg/dL (70-99) Calcium Level 8.3 mg/dL (8.5-10.1) L Total Bilirubin 0.2 mg/dL (0.2-1.0) Aspartate Amino Transferase (AST) 12 U/L (15-37) L Alanine Aminotransferase (ALT) 14 U/L (14-59) Alkaline Phosphatase 56 U/L (46-116) Total Protein 5.9 g/dL (6.4-8.2) L Albumin 2.8 g/dL (3.4-5.0) L Albumin/Globulin Ratio 0.9 (1.0-1.7) L Current Medications: I have reviewed the current psychotropics carefully including drug interactions. Risk benefit ratio favors no change other than as noted in my dictated progress note. Diagnosis: Problems: (1) Cognitive impairment (2) Bipolar disorder with psychotic features (3) Impulse control disorder, unspecified (4) Anxiety disorder, unspecified (5) Deep vein thrombosis (DVT) of left lower extremity SABRINA SHANNON MD Feb 09, 2020 07:37
[2020-02-09] MEDS: POTASSIUM CHLORIDE 10 MEQ TABLET.ER. PO SCH (08:07)
[2020-02-09] MEDS: OMEGA-3 FATTY ACIDS/FISH OIL 1,000 MG CAPSULE. PO SCH ×3 (08:07→20:28)
[2020-02-09] MEDS: ASCORBIC ACID 500 MG TABLET PO SCH ×2 (08:07→20:28)
[2020-02-09] MEDS: ASPIRIN CHEWABLE 81 MG TABLET. PO SCH (08:08)
[2020-02-09] MEDS: DORZOLAMIDE 2% OPHTH SOLUTION 10ML BOTTLE. OS SCH ×3 (08:08→20:29)
[2020-02-09] MEDS: cycloSPORINE 0.05% OPTH 1 DROP DROPERETTE OU SCH ×2 (08:08→20:27)
[2020-02-09] MEDS: FUROSEMIDE 20 MG TABLET PO SCH (08:08)
[2020-02-09] MEDS: PANTOPRAZOLE 40 MG TABLET. PO SCH (08:08)
[2020-02-09] MEDS: BRIMONIDINE 0.2% OPHTH SOLUTION 5ML BOTTLE. OS SCH ×3 (08:08→20:29)
--- NOTE | 2020-02-09 10:08 | NUR ---
Patient spoke with family today and family stated that she was crying on the phone. DPOA is interested in moving patient to a different part of the hospital. Family updated on the process. Patient stated after breakfast to staff members that she is ready to take anyone on because she is tired of all of it. Patient reeducated that staff is not interested in fighting her and that we are here to help her. Patient tablet set up for her to watch her devotions.
[2020-02-09] MEDS: HYDROcodone/APAP 10/325 1 TAB TABLET PO PRN (11:19)
[2020-02-09 15:39] VITALS: BP 128/74
--- NOTE | 2020-02-09 17:33 | NUR ---
Patient daughter stated that she will be speaking to Social work tomorrow about getting her moved to a different unit. Patient family also requested to speak with Dr. Cohen. Dr. Cohen notified of the daughters request. Patient stated when she woke from her nap she was feeling faint. Patient's Vital signs stable, blood glucose with in normal range and lungs sounds clear. Patient given new [place] soda to help settle her GERD. Patient has no further complaints of feeling faint at this time. Patient ambulated to dinner with a smooth steady gait.
[2020-02-09] MEDS: traZODone 50 MG TABLET. PO SCH (20:28)
[2020-02-09] MEDS: SIMVASTATIN 20 MG TABLET PO SCH (20:28)
[2020-02-09] MEDS: risperiDONE 1 MG TABLET. PO SCH (20:28)
[2020-02-09] MEDS: MIRTAZAPINE 15 MG TABLET PO SCH (20:28)
[2020-02-09] MEDS: DIVALPROEX ER 500 MG TAB.ER.24H PO SCH (20:28)
[2020-02-09] MEDS: LATANOPROST 0.005% OPHTH SOLUTION 2.5ML BOTTLE. OS SCH (20:29)
--- NOTE | 2020-02-09 22:06 | PDOC ---
Exam Note: Epifanio Note: Please also refer to the separate dictated note~for this date of service dictated separately.~Patient seen individually. Discussed the patient with Nursing staff reviewed the chart.~Reviewed interim history and current functioning. Reviewed vital signs,~Labs/ Radiology~and current medications noted below. Continue current treatment with the changes noted in the dictated addendum note Assessment: Vital Signs/I&O: Vital Signs Date Time Temp Pulse Resp B/P (MAP) Pulse Ox O2 Delivery O2 Flow Rate FiO2 02/09/20 15:39 97.3 81 16 128/74 (92) 100 02/09/20 12:22 Room Air I & O 02/08/20 02/08/20 02/09/20 15:00 23:00 07:00 Intake Total 780 ml 120 ml Balance 780 ml 120 ml Labs: Laboratory Tests Test 02/09/20 15:00 Glucose (Fingerstick) 89 mg/dL (70-99) Current Medications: I have reviewed the current psychotropics carefully including drug interactions. Risk benefit ratio favors no change other than as noted in my dictated progress note. Diagnosis: Problems: (1) Cognitive impairment (2) Bipolar disorder with psychotic features (3) Impulse control disorder, unspecified (4) Anxiety disorder, unspecified (5) Deep vein thrombosis (DVT) of left lower extremity SABRINA SHANNON MD Feb 09, 2020 22:06
--- NOTE | 2020-02-09 23:01 | NUR ---
Pt located in the dayroom this evening sitting calmly. Pt compliant with HS medications and shower. Pt is particular with her needs but has not been demanding this evening.
[2020-02-10] MEDS: LEVOTHYROXINE 100 MCG TABLET PO SCH (05:08)
[2020-02-10 06:19] VITALS: BP 104/65
--- NOTE | 2020-02-10 07:48 | PDOC ---
Exam Note: Epifanio Note: This note is a late entry for 02/09/2020 covers elements not covered in my initial note. Subjective: The patient was seen individually in the evening of 02/09/2020. Per Judd LANDAVERDE she slept 5 hours previous night. She has been anxious, somewhat labile, demanding with nursing staff, did better the rest of the day. She is very pleasant, verbal, interactive with me in the evening talking about her venous thromboembolism, plans for it and her desire to accept recommendations that are made for management. Also returned a call from patients daughter Dionna and talked to her at length. Dionna is wanting the patient transitioned off this unit and perhaps to chcf care at this hospital and she will discuss with [facility] community mental health social worker tomorrow about this. The patient has been pleasant, cooperative, much less paranoid. Hearing is better with hearing aid. Review of Systems: Ambulation impaired with walker. No CV, , pulmonary, eye, ENT system symptoms on review. Mental Status Exam: Patient is reasonably oriented. Speech is coherent. She is quite verbal, forthcoming, pleasant, and interactive. She is stating Im good with you. She seemed to be reflecting to a point where she was quite paranoid of our interactions in the past. No suicidal or homicidal ideation. During telephone conversation with Dionna, Dionna had many questions on the patients progress. We discussed this and defer to Dr. Stafford whether she would qualify for chcf care. Laboratory Data: Reviewed. Impression: Bipolar disorder mixed with psychotic features in partial remis javon. Mild cognitive impairment. Anxiety disorder unspecified. Impulse control disorder unspecified. DVT left lower extremity. Plan: Continue psychotropics from initial note. Assessment: Vital Signs/I&O: Vital Signs Date Time Temp Pulse Resp B/P (MAP) Pulse Ox O2 Delivery O2 Flow Rate FiO2 02/10/20 06:19 98.9 77 18 104/65 (78) 98 Room Air I & O 02/09/20 02/09/20 02/10/20 15:00 23:00 07:00 Intake Total 1080 ml 480 ml Balance 1080 ml 480 ml Labs: Laboratory Tests Test 02/09/20 15:00 Glucose (Fingerstick) 89 mg/dL (70-99) Current Medications: I have reviewed the current psychotropics carefully including drug interactions. Risk benefit ratio favors no change other than as noted in my dictated progress note. Diagnosis: Problems: (1) Impulse control disorder, unspecified (2) Anxiety disorder, unspecified (3) Deep vein thrombosis (DVT) of left lower extremity (4) Cognitive impairment (5) Bipolar disorder in partial remission SABRINA SHANNON MD Feb 10, 2020 07:48
[2020-02-10] MEDS: POTASSIUM CHLORIDE 10 MEQ TABLET.ER. PO SCH (08:17)
[2020-02-10] MEDS: cycloSPORINE 0.05% OPTH 1 DROP DROPERETTE OU SCH ×2 (08:17→20:45)
[2020-02-10] MEDS: ASPIRIN CHEWABLE 81 MG TABLET. PO SCH (08:17)
[2020-02-10] MEDS: FUROSEMIDE 20 MG TABLET PO SCH (08:17)
[2020-02-10] MEDS: OMEGA-3 FATTY ACIDS/FISH OIL 1,000 MG CAPSULE. PO SCH ×3 (08:17→20:47)
[2020-02-10] MEDS: PANTOPRAZOLE 40 MG TABLET. PO SCH (08:17)
[2020-02-10] MEDS: ASCORBIC ACID 500 MG TABLET PO SCH ×2 (08:17→20:47)
[2020-02-10] MEDS: BRIMONIDINE 0.2% OPHTH SOLUTION 5ML BOTTLE. OS SCH ×3 (08:18→20:45)
[2020-02-10] MEDS: DORZOLAMIDE 2% OPHTH SOLUTION 10ML BOTTLE. OS SCH ×3 (08:18→20:45)
--- NOTE | 2020-02-10 15:42 | NUR ---
Pt was calm, cooperative, appropriate this morning. Pleasant to talk with. This afternoon patient came out of her room stating that her bunion and right great toe hurt and that she is not getting the medical care she needs. Pt went on to say that she had broken her right ankle in 2009. RN tried to explain that her bones are healed after 10 years and you don't get admitted to a medical floor for right toe pain and bunion pain, however patient didn't like hearing this and became agitated. RN replied, "ok were done talking for now" and walked away. About 30 minutes later RN entered patients room for eye drops, pt pleasant. [employer] 3 fish oil, pt has difficulty swallowing pill. WCTM/
--- NOTE | 2020-02-10 15:50 | NUR ---
NOY received a call from Dionna who wondered if pt would be able to transfer down to the Swing Bed unit. NOY informed Dionna that they decided pt would not be appropriate as therapy closed pt case and decided she no longer needed their assistance. The therapy staff recommended home with home as as pt is Independent with all tasks. Dionna questioned why pt was not able to get therapy while here; NOY explained that therapy is a long-term gig. [facility] is an acute stay of 2-3 weeks and starting counseling would be more of a hurt than a help. If [facility] was a 6 month or a year program, counseling could be included in the program and this would not be an issue. Dionna who stated "in my opinion" does not believe that the psychological testing is a true picture of what is going on with her mother. She believes that the psychologist only spent an hour to an hour and a half with pt and feels that pt can "fool others in that time". Whereas, getting pt to sit with a 1:1 counselor over time can get a better picture. NYO explained that counseling could be set up as an outpt. [facility] and NOY mentioned wanting pt to have a counselor and a mental health case manager. Dionna questioned Ramon's role, in that she though he was her counselor. NOY explained that Ramon is the FROTHING MACHINE OPERATOR and looks over pt medications. Dionna stated "nah, nevermind then. We won't be seeing him. I'll find someone else. Huh, a nurse practitioner giving meds to my Mom and doesn't know what he's doing. No thank you". Dionna reports that she is supposed to call her mother and will plan to do so. NOY will plan to speak with pt about counseling and HH prior to Dionna's phone call and will continue to follow up with family.
[2020-02-10 16:26] VITALS: BP 133/61
--- NOTE | 2020-02-10 16:40 | NUR ---
SW met with pt, per pt request. Pt would like to discharge off the unit whether it is down to Swing Bed and home. SW did discuss with pt about the results of her scan tomorrow would determine which place pt would discharge. It does not appear that pt leg is getting worse or having more trouble. If the clot has resolved itself, pt would be able to discharge home. If the clot is there or worsened, pt would start a blood thinner and SW would ask for pt to be re-examined again to discharge to Swing Bed. SW discussed with pt what home would have to look like in order for pt to safely discharge. Pt talked to SW about home health versus outpt therapy. Pt does not like to have a lot of people in her home; however, if SW liked a specific company, she would be willing to give it a try. SW will ask for the same providers to minimize the traffic in pt home. Pt is most concerned about how she is going to be able to get food, as the person she typically works with "had a falling out prior to her admission" and she is not sure if that person will continue to cook for her again. Pt has asked SW to talk to her dtr about getting someone to help her cook. Pt is still unhappy about "Dionna putting her here" but pt reports that she will plan to deal with that later. Pt appeared to be more relaxed and in good spirits. Pt laughed about incidents that happened over the weekend with others and mentioned thinking that another pt on the unit was a female until she was corrected that he was male. Pt is agreeable to the plan and will wait to see how things fall. SW will follow up with pt and pt dtr to make plan tomorrow afternoon.
--- NOTE | 2020-02-10 17:30 | NUR ---
NOY returned call to pt dtr and went over the conversation SW had with pt. Pt dtr, Dionna, was upset with SW because SW did not mention pt actually attending mental health counseling. SW mentioned to Dionna that it was not brought up as SW was just impressed by the conversation pt was having and being able to see her in good spirits. SW mentioned the fact that pt was calm and laughing during conversation which was a first in her stay on [facility]. Dionna believes that SW purposely did not bring up counseling and NOY reiterated that it did not come up because SW forgot about it and instead reveled in pt good mood. NOY did inform Dionna "you can either bring it up with her tonight. Or if you prefer, I can address it tomorrow with her". Dionna will plan to contact pt after dinner and let NOY know how that conversation went.
[2020-02-10] MEDS: traZODone 50 MG TABLET. PO SCH (20:46)
[2020-02-10] MEDS: MIRTAZAPINE 15 MG TABLET PO SCH (20:46)
[2020-02-10] MEDS: risperiDONE 1 MG TABLET. PO SCH (20:47)
[2020-02-10] MEDS: LATANOPROST 0.005% OPHTH SOLUTION 2.5ML BOTTLE. OS SCH (20:47)
[2020-02-10] MEDS: SIMVASTATIN 20 MG TABLET PO SCH (20:47)
[2020-02-10] MEDS: DIVALPROEX ER 500 MG TAB.ER.24H PO SCH (20:47)
--- NOTE | 2020-02-10 22:09 | PDOC ---
Exam Note: Epifanio Note: Please also refer to the separate dictated note~for this date of service dictated separately.~Patient seen individually. Discussed the patient with Nursing staff reviewed the chart.~Reviewed interim history and current functioning. Reviewed vital signs,~Labs/ Radiology~and current medications noted below. Continue current treatment with the changes noted in the dictated addendum note Assessment: Vital Signs/I&O: Vital Signs Date Time Temp Pulse Resp B/P (MAP) Pulse Ox O2 Delivery O2 Flow Rate FiO2 02/10/20 16:26 97.5 80 20 133/61 (85) 99 02/10/20 06:19 Room Air I & O 02/09/20 02/09/20 02/10/20 15:00 23:00 07:00 Intake Total 1080 ml 480 ml Balance 1080 ml 480 ml Current Medications: I have reviewed the current psychotropics carefully including drug interactions. Risk benefit ratio favors no change other than as noted in my dictated progress note. Diagnosis: Problems: (1) Cognitive impairment (2) Impulse control disorder, unspecified (3) Deep vein thrombosis (DVT) of left lower extremity (4) Anxiety disorder, unspecified (5) Bipolar disorder in partial remission SABRINA SHANNON MD Feb 10, 2020 22:09
--- NOTE | 2020-02-10 22:11 | NUR ---
Pt withdrawn to room on assessment. Pt reports that her ankle hurts from her bunion and old ankle fx in 2009. Pt reports to nurse that one way or other she is either going downstairs or leaving tomorrow. Pt reminded that we can't get admitted to our medical floor for a healed fx or bunions. Pt calm and compliant with assessment and medications whole floated in applesauce. Pt interactive with staff, demanding at times.
[2020-02-11] MEDS: LEVOTHYROXINE 100 MCG TABLET PO SCH (05:06)
[2020-02-11 06:05] VITALS: BP 114/72
[2020-02-11] MEDS: cycloSPORINE 0.05% OPTH 1 DROP DROPERETTE OU SCH ×3 (09:09→21:00)
[2020-02-11] MEDS: FUROSEMIDE 20 MG TABLET PO SCH (09:09)
[2020-02-11] MEDS: BRIMONIDINE 0.2% OPHTH SOLUTION 5ML BOTTLE. OS SCH ×3 (09:09→21:00)
[2020-02-11] MEDS: DORZOLAMIDE 2% OPHTH SOLUTION 10ML BOTTLE. OS SCH ×3 (09:09→21:00)
[2020-02-11] MEDS: OMEGA-3 FATTY ACIDS/FISH OIL 1,000 MG CAPSULE. PO SCH ×3 (09:09→20:22)
[2020-02-11] MEDS: ASCORBIC ACID 500 MG TABLET PO SCH ×2 (09:09→20:22)
[2020-02-11] MEDS: POTASSIUM CHLORIDE 10 MEQ TABLET.ER. PO SCH (09:09)
[2020-02-11] MEDS: ASPIRIN CHEWABLE 81 MG TABLET. PO SCH (09:10)
[2020-02-11] MEDS: PANTOPRAZOLE 40 MG TABLET. PO SCH (09:10)
--- NOTE | 2020-02-11 09:10 | RAD ---
VENOUS LOWER EXTREMITY LEFT History: Reason: follow up of left below knee deep vein thrombous / Spl. Instructions: / History: Comparison: February 05, 2020 Discussion: Multiple longitudinal and transverse high resolution real-time images of the venous system of left lower extremity were obtained with color and Doppler sampling. The common femoral, superficial femoral, popliteal and proximal calf veins are all patent and demonstrate normal flow and compressibility. Normal respiratory phasicity and augmentation is present. Specifically the left peroneal vein is compressible. Impression: 1. No evidence of deep vein thrombosis. Electronically signed by: Lance Zurita DO (02/11/2020 9:07 AM) [id number]
--- NOTE | 2020-02-11 09:28 | NUR ---
Patient refused to go to breakfast. She had follow up doppler on her lower leg DVT, when nurse asked how that went patient stated "it is private information between Dr Stafford and myself". She made a point of asking this nurses name and then asking who the charge nurse was this day. Patient writes everything said or done in her spiral notebook. Patient is rude to most staff. She is demanding, argumentative and impatient. She is compliant with medications. Patient is very regimented in the way that she takes medications. She insists that nurse come back in 20 minutes to give her Dorzolamide and Brimonidine eye drops. Patient asked if nurse is and then went on to tell nurse how she "had lost so much weight by simply drinking 16 16.9oz bottles of water each day and five packets protein powder". She stated she did this at the same time that Faby was going thru her weight loss, but that she had lost more weight than Oprah did. 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 Patients personal tablet is charging in the nurses station Patient instructed nurse to monitor it and bring it to her when it gets to 100% charged. Nurse provided patient with glass of ice water and a newspaper and helped patient adjust the pillows under her legs and the blanket over her. Patient provided with two Atkins breakfast bars per her request from her closet. She stated her son brought them to her because hospital food is "not edible". She does not like the food that is served at the hospital and stated that she "will not be paying for the food". Addendum: 02/11/20 at 1628 by DAYNE AKINS RN Patient asked [employer]GRAM[employer] how the doppler was this morning. When nurse spoke to patient about what she had said this morning (that the results were private information between Dr. Stafford and herself) patient denied having said that and then told nurse that "she must have misunderstood what nurse was saying because she is QUINAULT and nurse is wearing a mask". Patient is scheduled to discharge tomorrow. Patient wanted to call daughter immediately but nurse did not allow it, stating that Lora and the daughter are busy working the details out and staff will let patient know when the discharge time is determined. Patient stated she wanted to leave today, nurse stated that it is "too late in the day" to make those plans and that it would have to be tomorrow. Patient is much more pleasant this afternoon.
--- NOTE | 2020-02-11 14:12 | NUR ---
Patient sitting in pass through hallway with her tablet looking things up. She called daughter and spoke to her after lunch. Patient seems to be in a better mood at this time. She is cooperative, calm and compliant with medications. She likes to put her eye drops in her own eyes after they are shaken very well.
[2020-02-11 16:15] VITALS: BP 125/73
[2020-02-11] MEDS ORDERED: ACET325T21 PO (16:51)
[2020-02-11] MEDS ORDERED: LEVO100T5 PO (16:52)
[2020-02-11] MEDS ORDERED: FURO20TA3 PO (16:52)
[2020-02-11] MEDS ORDERED: LOPE2TAB27 PO (16:53)
[2020-02-11] MEDS ORDERED: MAG-95 PO (16:54)
[2020-02-11] MEDS ORDERED: MAGN24003 PO (16:54)
[2020-02-11] MEDS ORDERED: METH28OI2 TP (16:55)
[2020-02-11] MEDS ORDERED: PHEN28OI8 RC (16:57)
[2020-02-11] MEDS ORDERED: RISP1TAB3 PO (16:58)
[2020-02-11] MEDS ORDERED: POTA10TA12 PO (16:58)
[2020-02-11] MEDS ORDERED: TRAZ-120 PO ×2 (16:59→17:00)
[2020-02-11] MEDS ORDERED: BRIM5DRO3 OS (17:04)
[2020-02-11] MEDS ORDERED: DORZ10DR26 OS (17:07)
--- NOTE | 2020-02-11 17:16 | NUR ---
SW returned call to pt dtr, Dionna, who wanted to discuss making sure that everything is set up for her to discharge tomorrow. "now that she has the blood clot, she is ready to go and we have nothing set up". SW discussed pt having having [facility] and pt dtr does not want a referral sent until she's had a chance to look things over and make sure that it is an appropriate fit for pt. NOY sent Dionna in the process an email with [facility] flyers so that she can read them and attached the community case manager on the email as well. Dionna informed NOY that pt is upset because she believes that SW has been avoiding her and Dionna continued to comment "I did not realize that you were in because you had not been answering my calls". NOY explained that out of 15 patients on the unit, NOY is carrying 13. SW often does not answer her phone so that she can send placement referrals, set up services and complete notes and other things. NOY will meet with pt when the opportunity presents itself. At this moment, pt is at dinner and NOY will plan to meet with pt once she returns to her room. Dionna will follow up on [facility] and get with NOY tomorrow.
[2020-02-11] MEDS: DIVALPROEX ER 500 MG TAB.ER.24H PO SCH (20:21)
[2020-02-11] MEDS: SIMVASTATIN 20 MG TABLET PO SCH (20:22)
[2020-02-11] MEDS: MIRTAZAPINE 15 MG TABLET PO SCH (20:22)
[2020-02-11] MEDS: traZODone 50 MG TABLET. PO SCH (20:22)
[2020-02-11] MEDS: risperiDONE 1 MG TABLET. PO SCH (20:22)
[2020-02-11] MEDS: LOPERAMIDE 2 MG CAPSULE PO PRN (20:50)
[2020-02-11] MEDS: LATANOPROST 0.005% OPHTH SOLUTION 2.5ML BOTTLE. OS SCH (21:00)
--- NOTE | 2020-02-11 22:09 | PDOC ---
Exam Note: Epifanio Note: Please also refer to the separate dictated note~for this date of service dictated separately.~Patient seen individually. Discussed the patient with Nursing staff reviewed the chart.~Reviewed interim history and current functioning. Reviewed vital signs,~Labs/ Radiology~and current medications noted below. Continue current treatment with the changes noted in the dictated addendum note Assessment: Vital Signs/I&O: Vital Signs Date Time Temp Pulse Resp B/P (MAP) Pulse Ox O2 Delivery O2 Flow Rate FiO2 02/11/20 16:15 97.7 80 18 125/73 (90) 95 Room Air I & O 02/10/20 02/10/20 02/11/20 15:00 23:00 07:00 Intake Total 460 ml 480 ml Balance 460 ml 480 ml Current Medications: I have reviewed the current psychotropics carefully including drug interactions. Risk benefit ratio favors no change other than as noted in my dictated progress note. Diagnosis: Problems: (1) Cognitive impairment (2) Bipolar disorder with psychotic features (3) Impulse control disorder, unspecified (4) Anxiety disorder, unspecified (5) Bipolar disorder in partial remission SABRINA SHANNON MD Feb 11, 2020 22:09
--- NOTE | 2020-02-11 22:12 | NUR ---
Pt is withdrawn to room on assessment. Pt insists that staff has been talking about her all day. Pt is irritable and short with this nurse, demanding to call son. Explained to pt that we just took the the phone from her and it is other pts turn to call/speak to their loved ones as well. When attempted to take pt to shower, pt report her stomach has been upset all day. Pt completed multiple ice creams and a handful of other snacks. Pt is refusing all care from staff and medications. Pt journaling and refusing to look or speak to staff. Pt agreed to shower on second attempt. Pt remain short and irritable towards staff. Pt had x1 loose stool in the shower requests a PRN. PRN immodium and HS pill given floated in applesauce. Pt refused to eye drops and assessment.
[2020-02-11] MEDS ORDERED: SIMV20TA18 PO (23:20)
[2020-02-12 05:04] VITALS: BP 114/71
[2020-02-12] MEDS: LEVOTHYROXINE 100 MCG TABLET PO SCH (06:05)
--- NOTE | 2020-02-12 07:33 | PDOC ---
Exam Note: Epifanio Note: This note is a late entry for 02/10/2020 covers elements not covered in my initial note. Subjective: The patient was seen individually in the evening of 02/10/2020. Per Guanako LANDAVERDE she slept 4-1/4 hours previous night. She was calm in the morning. By the evening she was extremely somatically preoccupied. She complains of bunion on her toe and ankle fracture for months ago that she feels has not healed so she cannot walk very well. She often walks without the walker and I encouraged her to always have the walker with her. Review of Systems: Ambulation impaired with walker. No CV, , pulmonary, eye, ENT system symptoms on review. Mental Status Exam: Oriented to herself and situation. Speech is coherent, somewhat pressured at times. Abstraction is fair. Computation is impaired. Language function is intact. Attention span is short. Mood and affect remains somewhat grandiose but lesser than before. Laboratory Data: Reviewed. Impression: Bipolar disorder mixed with psychotic features versus bipolar disorder manic with psychotic features. Mild cognitive impairment. Anxiety disorder unspecified. Impulse control disorder unspecified. Plan: Continue psychotropics from initial note. Defer management of her venous thromboembolism to Dr. Stafford. Maintain Risperdal 1 mg h.s., Depakote ER 1000 mg h.s., level therapeutic at 59. Assessment: Vital Signs/I&O: Vital Signs Date Time Temp Pulse Resp B/P (MAP) Pulse Ox O2 Delivery O2 Flow Rate FiO2 02/12/20 05:04 98.5 81 16 114/71 (85) 99 02/11/20 16:15 Room Air I & O 02/11/20 02/11/20 02/12/20 15:00 23:00 07:00 Intake Total 480 ml 720 ml Balance 480 ml 720 ml Current Medications: I have reviewed the current psychotropics carefully including drug interactions. Risk benefit ratio favors no change other than as noted in my dictated progress note. Diagnosis: Problems: (1) Bipolar affective, manic, severe w/ psych (2) Bipolar disorder with psychotic features (3) Impulse control disorder, unspecified (4) Anxiety disorder, unspecified (5) Cognitive impairment SABRINA SHANNON MD Feb 12, 2020 07:33
--- NOTE | 2020-02-12 08:13 | PDOC ---
Exam Note: Epifanio Note: This note is a late entry for 02/11/2020 covers elements not covered in my initial note. Subjective: The patient was seen individually in the evening of 02/11/2020. Per Macey LANDAVERDE she slept 7-1/4 hours previous night. She refused breakfast stating this was not fit for her dog. Doppler of her lower extremity is negative for venous thromboembolism, which seems to have resolved. She has been angry. At times somewhat grandiose, talking about she went on a diet with Faby Paz. Review of Systems: Ambulation impaired with walker. No CV, , pulmonary, eye, ENT system symptoms on review. Mental Status Exam: Oriented to herself and situation. Speech is coherent, pressured but lesser than before. Abstraction is fair. Computation is impaired. Language function is intact. Attention span is short. Mood and affect has improved. She talked at length individually about moving around as she grew up because father was in the army. She described how they lived in [place] and [place]. Laboratory Data: Reviewed. Impression: Bipolar disorder mixed with psychotic features versus bipolar disorder manic with psychotic features. Mild cognitive impairment. Anxiety disorder unspecified. Impulse control disorder unspecified. Plan: Continue psychotropics from initial note. Mary social staff worker has arranged transition home tomorrow with intensive outpatient interventions. Assessment: Vital Signs/I&O: Vital Signs Date Time Temp Pulse Resp B/P (MAP) Pulse Ox O2 Delivery O2 Flow Rate FiO2 02/12/20 05:04 98.5 81 16 114/71 (85) 99 02/11/20 16:15 Room Air I & O 02/11/20 02/11/20 02/12/20 15:00 23:00 07:00 Intake Total 480 ml 720 ml Balance 480 ml 720 ml Current Medications: I have reviewed the current psychotropics carefully including drug interactions. Risk benefit ratio favors no change other than as noted in my dictated progress note. Diagnosis: Problems: (1) Cognitive impairment (2) Bipolar disorder with psychotic features (3) Impulse control disorder, unspecified (4) Anxiety disorder, unspecified (5) Bipolar affective, manic, severe w/ psych SABRINA SHANNON MD Feb 12, 2020 08:12
[2020-02-12] MEDS: BRIMONIDINE 0.2% OPHTH SOLUTION 5ML BOTTLE. OS SCH (09:03)
[2020-02-12] MEDS: PANTOPRAZOLE 40 MG TABLET. PO SCH (09:03)
[2020-02-12] MEDS: FUROSEMIDE 20 MG TABLET PO SCH (09:03)
[2020-02-12] MEDS: DORZOLAMIDE 2% OPHTH SOLUTION 10ML BOTTLE. OS SCH (09:03)
[2020-02-12] MEDS: OMEGA-3 FATTY ACIDS/FISH OIL 1,000 MG CAPSULE. PO SCH (09:03)
[2020-02-12] MEDS: POTASSIUM CHLORIDE 10 MEQ TABLET.ER. PO SCH (09:03)
[2020-02-12] MEDS: cycloSPORINE 0.05% OPTH 1 DROP DROPERETTE OU SCH (09:03)
[2020-02-12] MEDS: ASCORBIC ACID 500 MG TABLET PO SCH (09:04)
[2020-02-12] MEDS: ASPIRIN CHEWABLE 81 MG TABLET. PO SCH (09:04)
[2020-02-12] MEDS: LOPERAMIDE 2 MG CAPSULE PO PRN (09:59)
--- NOTE | 2020-02-12 10:25 | NUR ---
NOY returned call to Dionna to finalize discharge plans. NOY and Dionna discussed HH coming out tomorrow and getting the process started. NOY will email Dionna the [facility] counselors that NOY was notified within the [place] area. Dionna understands that once pt discharges, pt believes that she can change things; however, with the psychological testing, it shows that pt is not able to make her own decisions as she does is not able to fully make safe decisions. As it stands, pt brother will plan to pick pt up at 1300.
--- NOTE | 2020-02-12 10:32 | NUR ---
[facility] Social Work Discharge Planning Form Patient Name NATALIYA RAMÍREZ Admit Date: 01/28/20 DISCHARGE PLAN Discharge Destination: To discharge home with services Care Assessment: N/A Level II Assessment: N/A Transportation: Pt son, Renato, to pick pt up around 1300 Special Instructions/Notes: Please fax discharge orders, discharge med list and discharge summary to the following fax number below. DISCHARGE TO HOME: Address: [address] [place] [address]; [place] [address] Responsible [employer]: Dionna Ramírez/Renato Ramírez Pharmacy: [facility] Contact Information: [address], [place] [address] Psychiatrist/Mental Health Follow Up: [facility]; SONAM Modi Contact Information: [address] [place] [address] Appointment:02/28/2020 @ 1140 Primary Care Follow Up: Dr. Óscar Miguel Contact Information: [address] [address] Appointment: 02/19/2020 @ 0830 Home Health: [facility] Contact Information: [address] [place] [id number] Appointment: Will be out to see pt tomorrow
--- NOTE | 2020-02-12 11:31 | NUR ---
Patient compliant with morning medications. She administered her own eye drops because "nurse does not shake them up correctly". Patient still wearing pajamas with a robe over them and slippers. She only ate toast at breakfast because the food was "inedible". Patient has hostile/flat affect today. When asked if something was bothering her she said "those shenanigans last night, they really roughed me up". Nurse had received in report from HS nurse that patient had been writing about other patients in her journal. As this violates HIPPA, those pages containing details of other patients treatments and their names were removed from the journal and it was given back to patient. HS nurse explained this to patient when patient asked. Patient said she "didn't sleep all night" but laid there with her eyes closed. Patient ate many snacks before bed last night, to include multiple containers of pudding and ice cream. Patient requested Imodium for diarrhea this morning. PRN Imodium provided per patient request. Patient stated that "the food and this whole place" is causing her to have diarrhea. When staff was asked, no one had been aware of patients "diarrhea". Patient states she has had diarrhea for days. This nurse has asked patient about bowel movements for the past two days and patient has not said one thing about diarrhea. Patient is now laying in her bed, "elevating her legs" until she can be picked up for discharge by her family. This nurse verified with VICKY Valdez, that patient had requested to wear her robe, pajamas and slippers home despite having multiple bags of items with her. Patient is currently wearing robe, pajamas and slippers per her request. SW stated patient son will pick her up at 1300.
--- NOTE | 2020-02-12 12:00 | NUR ---
Patient refused to go to lunch room to eat lunch. This nurse witnessed MACHINE CLOTH MEASURER open door and personally invite patient to come to lunch.
--- NOTE | 2020-02-12 12:51 | NUR ---
Nurse has attempted to fax medication list to the Pharmacy at [facility] multiple times. Fax is unable to go thru. SWs aware as both Lora and Cyndy have tried numerous times to reach someone by phone or fax. Numbers attempted: phone [phone] fax [phone] Will provide family a printed list of medications to take to pharmacy after discharge. Written scripts provided to family at discharge for controlled substances.
--- NOTE | 2020-02-12 13:37 | NUR ---
Patients son arrived to pick her up for discharge at 1300. He remained downstairs off unit per current COVID-19 protocol. Patient requested to check her belongings that had been in the safe since her admittance. In the first envelope she had 3 rings, 1 watch and 1 bracelet which were all accounted for on the belonging intake sheet and given back at discharge. Patient put the jewelry on prior to leaving. This was witnessed by VICKY Valdez and AKHIL Choudhury. Patient also had a large purse with another inner smaller purse type bag. Patient began to look through purse for her belongings and stated that the empty glasses case that was in there went to the pair of glasses that patient bent up in anger at some point during her stay on [facility]. On the belonging intake sheet it was listed as 'purse and wallet". Nothing inside had been inventoried, as purse had been in safe the entire time patient has been here. Patient began to say that her "papers were out of order". At that point, this nurse called for Enriqueta [facility] director to come to the patient room. Patient began to say "I would never fold my money this way, look at these papers just jammed in there like that, I don't do that. And the cards are out of order". She took about 75% of cards and papers out of the wallet and then stated that she was missing $100 bill that she had "taken from her husbands wallet to keep as a memento". There is not a record of a $100 bill on the belongings inventory sheet. Patient was escorted downstairs for discharge and assisted into her sons car by staff, it was 1335 when we reached the 1st floor.
--- NOTE | 2020-02-12 13:53 | NUR ---
Transition Record was faxed to follow-up provider with the following elements: Reason for admission, procedures, tests, principal diagnosis, pending studies, patient instructions, 27/02 contact information for unit, phone number to obtain pending test results, plan for follow-up care, physician follow-up, advanced directive information, and medication list with dose, duration and instructions. This information was included in the following documents: History and physical, lab results, study results, progress notes, social work planning form, DC instruction form, patient visit summary, and medication reconciliation form. Date & time record faxed: 02/12/20 1240 Record faxed to: [facility] , PCP Dr. Campbell, [facility] A copy of signed Medication list (signed 02/11/[address] Stafford) was given to patients son on discharge as we were unable to reach [facility] by phone or fax. [facility] number given on medication list for any questions from pharmacy or family. Patient son stated he would take the list to [facility]. Two hand written controlled substance prescriptions given as well. Record discussed with/ report given to: Simeon Cárdenas, Son of patient. Reviewed upcoming appointments as well.
--- NOTE | 2020-02-12 23:07 | PDOC ---
Exam Note: Epifanio Note: Please also refer to the separate dictated note~for this date of service dictated separately.~Patient seen individually. Discussed the patient with Nursing staff reviewed the chart.~Reviewed interim history and current functioning. Reviewed vital signs,~Labs/ Radiology~and current medications noted below. Continue current treatment with the changes noted in the dictated addendum note Assessment: Vital Signs/I&O: Vital Signs Date Time Temp Pulse Resp B/P (MAP) Pulse Ox O2 Delivery O2 Flow Rate FiO2 02/12/20 05:04 98.5 81 16 114/71 (85) 99 02/11/20 16:15 Room Air I & O 02/11/20 02/11/20 02/12/20 15:00 23:00 07:00 Intake Total 480 ml 720 ml Balance 480 ml 720 ml Current Medications: I have reviewed the current psychotropics carefully including drug interactions. Risk benefit ratio favors no change other than as noted in my dictated progress note. Diagnosis: Problems: (1) Cognitive impairment (2) Impulse control disorder, unspecified (3) Anxiety disorder, unspecified (4) Bipolar disorder in partial remission (5) Bipolar affective, manic, severe w/ psych SABRINA SHANNON MD Feb 12, 2020 23:07
--- NOTE | 2020-02-13 11:19 | NUR ---
VM left for DPOA regarding patient cell phone and money items that were not on the sbhu inventory list.
--- NOTE | 2020-02-13 22:21 | DS ---
DATE OF DISCHARGE: 02/12/2020 DISCHARGE SUMMARY/PSYCHIATRIC PROGRESS NOTE This late entry 02/12/2020 covers elements not covered in my initial note. REASON FOR ADMISSION: Please refer to the admission history for details. Briefly, the patient is an 84-year-old Afro-Vietnamese female who was referred to us from the ICU at [facility] after she was medically stabilized there. She remained paranoid, has a past history of bipolar disorder with psychotic features. She had stopped her psychotropic medications, became manic, was not eating for about 4 days. She was paranoid, wanting to to be with her . She had failed outpatient psychiatric interventions and then referred to us for inpatient psychiatric stabilization. SIGNIFICANT FINDINGS AND CLINICAL COURSE: Following admission, the patient was seen daily individually by myself from a psychiatric standpoint, medical followup per Dr. Stafford/Dr. Orr. The patient was extremely paranoid, suspicious, grandiose, irritable. Adjustments were made in her psychotropics. She seemed to respond to a combination of Depakote ER 1000 mg at bedtime with a valproic acid level therapeutic at 59. She was also on Remeron 15 mg at bedtime, Klonopin 0.5 mg at bedtime p.r.n., Zyprexa p.r.n., Risperdal 1 mg at bedtime, trazodone 50 mg at bedtime, may repeat x 1 for insomnia. Initially, during the hospitalization, the patient was threatening staff and otherwise refusing to interact. She did not have her hearing aid. When she did get her hearing aid, the batteries were replaced and she was more stable on her psychotropics for the bipolar 1 disorder, manic with psychotic features, then she was more interactive, pleasant, cooperative. I did visit with ____ who had coordinated the patient's inpatient psychiatric hospitalization. ____ worked closely with Mary, social service director, for arranging outpatient psychiatric followup post-discharge back at the [facility] and to case management. Prior to discharge on 02/12/2020, ambulation impaired with walker. No CV, , pulmonary, eye system symptoms on review. She did develop a venous thromboembolism left lower extremity, which was managed by Dr. Stafford ____ psychiatric hospitalization somewhat. The clot seemed to have resolved on an ultrasound prior to her discharge. MENTAL STATUS EXAMINATION AT DISCHARGE: The patient is oriented to herself and situation. Speech is coherent, has some latency. Abstraction fair, computation impaired, language function intact, attention span short. She was less grandiose, more stable on her mood. No suicidal or homicidal ideation. FINAL DIAGNOSES: Bipolar 1 disorder, manic with psychotic features, in partial remission; anxiety disorder, unspecified; impulse control disorder, unspecified. Rest unchanged from admission. DISCHARGE MEDICATIONS: Please refer to the MRAD and she seemed to be stable on Depakote ER 1000 mg at bedtime, Remeron 15 mg at bedtime, Klonopin p.r.n., Zyprexa p.r.n., Risperdal 1 mg at bedtime, trazodone 50 mg at bedtime p.r.n. insomnia, december repeat x 1. DISCHARGE INSTRUCTIONS: Outpatient psychiatric and medical followup as arranged including case management. Time for discharge day management greater than 30 minutes. SABRINA SHANNON MD DR: RAQUEL/stevo JOB#: [id number] / [id number]
--- NOTE | 2020-02-14 15:39 | NUR ---
Followed up with Dionna, amber FRANKLIN. Dionna states patient's cell phone, $100 bill and all credit cards were in patient's belonging bag and currently at home with patient. NOEMI apologized for the confusion and thanked staff for her mothers care.
== END 2020-02-12 13:35 | disposition home health service (06) | DRG 885 ==
LOC: GEROPSY 15:18
PROVIDERS: ADMIT Psychiatry & Neurology Psychiatry; ATTEND Psychiatry & Neurology Psychiatry
DX: F31.64 Bipolar disorder, current episode mixed, severe, with psychotic features (principal); I82.402 Acute embolism and thrombosis of unspecified deep veins of left lower extremity; R45.851 Suicidal ideations; E03.9 Hypothyroidism, unspecified; E78.5 Hyperlipidemia, unspecified; F03.90 Unspecified dementia, unspecified severity, without behavioral disturbance, psychotic disturbance, mood disturbance, and anxiety; F41.9 Anxiety disorder, unspecified; F63.9 Impulse disorder, unspecified; E86.0 Dehydration; M19.90 Unspecified osteoarthritis, unspecified site; K21.9 Gastro-esophageal reflux disease without esophagitis; Z86.73 Personal history of transient ischemic attack (TIA), and cerebral infarction without residual deficits; Z91.19 Patient's noncompliance with other medical treatment and regimen
CPT/HCPCS: 36415; 80048; 80053; 80061; 80164; 82306; 82550; 82607; 82947; 83036; 83540; 83550; 83735; 83880; 84436; 84443; 84480; 84484; 85007; 85025; 85379; 86592; 93005; 93970; 93971; 97110; 97530; 97535

== ENCOUNTER 2021-04-13 09:55 | Emergency (ER) | payer MEDICARE, OTHER ==
[~2021-04-13] VITALS: Ht 165.1 cm; Wt 81.8 kg
[~2021-04-13 09:55] MED LIST changes: +ACET325T21 PO; +ASPI81TA59 PO; +BRIM5DRO3 OS; +DORZ10DR26 OS; +FURO20TA3 PO; +HYDR-2767 PO; +LEVO100T5 PO; +LOPE2TAB27 PO; +MAG-124 PO; +MAGN24003 PO; +METH28OI2 TP; +MIRT-37 PO; -MIRT15TA PO; +OLAN10VI2 IM; +OLAN5TAB7 PO; +PHEN28OI8 RC; +POTA-116 PO; +RISP1TAB88 PO; +SIMV20TA18 PO; +TRAZ-120 PO
--- NOTE | 2021-04-13 10:53 | EKG ---
[address] [address] Test Date: 2021-04-13 Test Time: 10:46:00 Pat Name: NATALIYA RAMÍREZ Department: Room: Gender: F Remnant Sorter: YAIMA : 1935 Requested By: TERE BLAS Order Number: [id number] Reading MD: Clint Langston MD Measurements Intervals Arthur Rate: 74 P: -35 HI: 138 QRS: 49 QRSD: 94 T: 131 QT: 400 QTc: 449 Interpretive Statements SINUS RHYTHM CONSIDER ACCESSORY PATHWAY Electronically Signed On 04-15-2021 9:15:33 CDT by Clint Langston MD
--- NOTE | 2021-04-13 10:57 | PHYS DOC ---
Past History Past Medical History: High Cholesterol, Other Additional Past Medical Histor: dementia, depression (TERE BLAS APRN) Past Surgical History: No Surgical History (TERE BLAS APRN) Alcohol Use: None (TERE BLAS APRN) General Adult EDM: Chief Complaint: HYPERTENSION HPI: HPI: Patient is a 85-year-old female who presents with complaints of hypertension, neck pain, shortness of breath and dizziness. Patient states "I had my neighbor check my blood pressure in the last few days and its been high". "It was 170s/80s at home". Patient is also reporting some shortness of breath and dizziness. Patient states a few days ago she did have a fall at home. Patient states that she tripped over her rug. Denies loss of consciousness. Denies blood thinners. Patient is reporting neck pain since fall. Denies recent illness. (TERE BLAS APRN) Review of Systems: Review of Systems: ROS At least 10 ROS systems have been reviewed and are negative except as documented in the HPI. General: Negative except as outlined in HPI above. Skin: Negative except as outlined in HPI above. HEENT: Negative except as outlined in HPI above. Neck: Negative except as outlined in HPI above. Respiratory: Negative except as outlined in HPI above.. Cardiovascular: Negative except as outlined in HPI above. Abdomen: Negative except as outlined in HPI above. : Negative except as outlined in HPI above. Back/MSK: Negative except as outlined in HPI above. Neuro: Negative except as outlined in HPI above. Psych: Negative except as outlined in HPI above. (TERE BLAS APRN) Allergies: Allergies: Allergies Coded Allergies Type Severity Reaction Last Updated Verified Penicillins Allergy Intermediate 01/31/20 Yes Uncoded Allergies Type Severity Reaction Last Updated Verified PNEUMONIA VACCINE Allergy Unknown 04/13/21 (TERE BLAS APRN) Physical Exam: PE: Constitutional: Well developed, well nourished, no acute distress, non-toxic appearance. [] HENT: Normocephalic, atraumatic, bilateral external ears normal, oropharynx moist, no oral exudates, nose normal. [] Eyes: PERRLA, EOMI, conjunctiva normal, no discharge. [] Neck: Normal range of motion, midline tenderness. Cardiovascular:Heart rate regular rhythm, no murmur [] Lungs & Thorax: Bilateral breath sounds clear to auscultation [] Abdomen: Bowel sounds normal, soft, no tenderness, no masses, no pulsatile masses. [] Skin: Warm, dry, no erythema, no rash. [] Back: No tenderness, no CVA tenderness. [] Extremities: No tenderness, no cyanosis, no clubbing, ROM intact, no edema. [] Neurologic: Alert and oriented X 3, normal motor function, normal sensory function, no focal deficits noted. [] Psychologic: Affect normal, judgement normal, mood normal. [] (TERE BLAS APRN) EKG: EKG: Sinus rhythm. Heart rate 74. No ST elevation or depression. Read by Dr. Nuno. [] (TERE BLAS APRN) Radiology/Procedures: Radiology/Procedures: []Exam Date: 04/13/2021 11:[address] HEAD/BRAIN WO Indication: Reason: FALL / Spl. Instructions: / History: . TECHNIQUE: Head CT was performed without intravenous contrast. One or more of the following dose reduction techniques were utilized: *Automated exposure control (AEC) *Adjustment of mA and/or kV according to patient size *Use of iterative reconstruction technique *CT scan done according to ALARA, or ALARA/IMAGE GENTLY FINDINGS: The ventricles and sulci are prominent consistent with cerebral volume loss. Patchy ill-defined low attenuation areas in the subcortical and periventricular white matter bilaterally are consistent with microvascular disease. There is no evidence of acute intracranial hemorrhage, extra-axial collection, mass effect, midline shift, or acute territorial infarct. No lesion of the skull base or the calvarium is seen. The visualized paranasal sinuses, mastoid air cells and orbits are normal in appearance. IMPRESSION: No evidence for acute intracranial abnormality. Volume loss and microvascular disease. Electronically signed by: Yuan Carrillo MD (04/13/2021 12:17 PM) [id number] EXAMINATION: CTA HEAD AND NECK W/WO CONTRAST CLINICAL HISTORY: Fall TECHNIQUE: Spiral high resolution axial images were obtained through the head, neck and superior mediastinum following bolus administration of intravenous contrast for CT angiography. 3D maximum intensity projection images also performed. CT Dose Reduction Employed: One or more of the following individualized dose reduction techniques were utilized for this examination: 1. Automated exposure control 2. Adjustment of the mA and/or kV according to patient size 3. Use of iterative reconstruction technique. COMPARISON: NECT head same day FINDINGS: BRAIN: No definitive evidence of acute ischemic stroke or intracranial hemorrhage. NECK: Soft Tissues: Findings suggestive of a left thyroidectomy. Spine: Moderate multilevel degenerative changes. Lung Apices: Motion degraded images of the lungs demonstrate scattered curvilinear subsegmental atelectasis and/or scarring. CT ARTERIOGRAM: Extracranial Circulation: Aortic Arch: Normal branching pattern from the aortic arch. Mild calcified plaque in the thoracic aorta and arch vessels. No significant stenosis in the proximal brachiocephalic vessels. Carotid Stenosis: Right Common: No significant stenosis. Right Internal Carotid Plaque: No significant plaque formation. Right Internal Carotid Stenosis (% by NASCET Criteria): No significant stenosis. Left Common: No significant stenosis. Left Internal Carotid Plaque: Minimal focal calcified plaque in the proximal internal carotid artery. Left Internal Carotid Stenosis (% by NASCET Criteria): No significant stenosis. Cervical Vertebral Arteries: Patency: Bilateral Dominance: Left Intracranial Circulation: Anterior Circulation: No evidence of large vessel occlusion. Mild calcified atherosclerotic plaque in the bilateral intracranial internal carotid arteries, greater on the right. Vertebrobasilar Circulation: No evidence of large vessel occlusion. Normal variant origin of the right posterior cerebral artery. IMPRESSION: No evidence of large vessel occlusion or significant carotid arterial stenosis. Electronically signed by: Mick Holbrook DO (04/13/2021 1:26 PM) [facility] (TERE BLAS APRN) Heart Score: C/O Chest Pain: No Risk Factors: Risk Factors: DM, Current or recent (<one month) smoker, HTN, HLP, family history of CAD, obesity. Risk Scores: Score 0 - 3: 2.5% MACE over next 6 weeks - Discharge Home Score 4 - 6: 20.3% MACE over next 6 weeks - Admit for Clinical Observation Score 7 - 10: 72.7% MACE over next 6 weeks - Early Invasive Strategies (TERE BLSA APRN) Course & Med Decision Making: Course & Med Decision Making Pertinent Labs and Imaging studies reviewed. (See chart for details) [] Nontoxic, appearing 85-year-old female with high blood pressure, midline neck tenderness, shortness of breath and dizziness. Patient states that she had a fall a few days ago and has had neck tenderness. Blood pressure on arrival 170s over 90s. Patient denies a history of hypertension. Patient is also reporting some dizziness and shortness of breath. Patient is hemodynamically stable upon arrival. CTA head and neck ordered to rule out bleeding, dissection, fracture. CTA is unremarkable. All labs unremarkable. Chest x-ray is unremarkable. 153/80 on repeat blood pressure. Patient reports symptoms have improved. She is alert and oriented. Patient given strict return precautions. Advised patient she is to call her PCP make a follow-up appointment for tomorrow. Patient states that she understands discharge instructions. She is appreciative and requesting to follow-up with PCP. (TERE BLAS APRN) Course & Med Decision Making I was the Attending physician on the above date of service of this patient. This patient was evaluated, examined, treated, and dispositioned from the emergency department by the mid-level practitioner. Electronically signed, David Nuno DO (DAVID NUNO DO) Timothy Disclaimer: Timothy Disclaimer: This electronic medical record was generated, in whole or in part, using a voice recognition dictation system. (TERE BLAS APRN) Departure Departure: Impression: Primary Impression: Hypertension Qualified Codes: I10 - Essential (primary) hypertension Disposition: HOME / SELF CARE / HOMELESS Condition: STABLE Referrals: DELPHINE WASHINGTON MD (PCP) Patient Instructions: Hypertension, [id number] Additional Instructions: You were seen in the emergency room for hypertension, neck tenderness from a recent fall, and some dizziness. All of your labs were unremarkable. Your urine was negative for infection. CT of your head and neck with unremarkable. Your blood pressure improved while you were in the emergency room. Please call your PCP make a follow-up appointment for tomorrow. Return to the emergency room if you have worsening symptoms or concerns. EMERGENCY DEPARTMENT GENERAL DISCHARGE INSTRUCTIONS Thank you for coming to [facility] (ED) today and trusting us with you care. We trust that you had a positivie experience in our Emergency Department. If you wish to speak to the department management, you may call the director at [phone]. YOUR FOLLOW UP INSTRUCTIONS ARE FOLLOWS: 1. Do you have a private Doctor? If you do not have a private doctor, please a sk for a resource list of physicians or clinics that may be able to assist you with follow up care. 2. The Emergency Physician has interpreted your x-rays. The X-Ray specialist will also review them. If there is a change in the findings, you will be notified in 48 hours when at all possible. 3. A lab test or culture has been done, your results will be reviewed and you will be notified if you need a change in treatment. ADDITIONAL INSTRUCTIONS AND INFORMATION: 1. Your care today has been supervised by a physician who is specially trained in emergency care. Many problems require more than one evaluation for a complete diagnosis and treatment. We recommend that you schedule your follow up appointment as recommended to ensure complete treatment of you illness or injury. If you are unable to obtain follow up care and continue to have a problem, or if your condition worsens, we recommend that you return to the ED. 2. We are not able to safely determine your condition over the phone nor are we able to give sound medical advice over the phone. For these safety reasons, if you call for medical advice we will ask you to come to the ED for further evaluation. 3. If you have any questions regarding these discharge instructions please call the ED at [phone]. SAFETY INFORMATION: In the interest of safety, wellness, and injury prevention; we encourage you to wear your sealbelt, if you smoke; quite smoking, and we encourage family to use a protective helmet for bicycling and other sporting events that present an increased risk for head injury. IF YOUR SYMPTOMS WORSEN OR NEW SYMPTOMS DEVELOP, OR YOU HAVE CONCERNS ABOUT YOUR CONDITION; OR IF YOUR CONDITION WORSENS WHILE YOU ARE WAITING FOR YOUR FOLLOW UP APPOINTMENT; EITHER CONTACT YOUR PRIMARY CARE DOCTOR, THE PHYSICIAN WHOSE NAME AND NUMBER YOU WERE GIVEN, OR RETURN TO THE ED IMMEDIATELY. TERE BLAS APRN Apr 13, 2021 10:57 DAVID NUNO DO Apr 14, 2021 07:22
[2021-04-13 11:28] LABS: BASO % 1 % (0-3); EOS % 1 % (0-3); HEMATOCRIT 46.5 % (36.0-47.0); HEMOGLOBIN 15.4 g/dL (12.0-15.5); LYMPH # 1.3 x10^3/uL (1.0-4.8); LYMPH % 30 % (24-48); MEAN CORPUSCULAR HEMOGLOBIN 29 pg (25-35); MEAN CORPUSCULAR HGB CONC 33 g/dL (31-37); MEAN CORPUSCULAR VOLUME 86 fL (79-100); MONO # 0.4 x10^3/uL (0.0-1.1); MONO % 8 % (0-9); NEUT # 2.6 x10^3uL (1.8-7.7); NEUT % 61 % (31-73); PLATELET COUNT 218 x10^3/uL (140-400); RED BLOOD COUNT 5.41 x10^6/uL (3.50-5.40); RED CELL DISTRIBUTION WIDTH 15.2 % (11.5-14.5); WHITE BLOOD COUNT 4.2 x10^3/uL (4.0-11.0)
[2021-04-13 11:29] LABS: CALCIUM 9.4 mg/dL (8.5-10.1); CREATININE 0.8 mg/dL (0.6-1.0); GFR 68.2; POTASSIUM 3.7 mmol/L (3.5-5.1)
[2021-04-13] MEDS ORDERED: IOHEXOL 350 MG/ML 100 ML VIAL. IV ONE (11:45)
[2021-04-13] MEDS ORDERED: CONTRAST GIVEN. MC PRN (12:00)
--- NOTE | 2021-04-13 12:19 | RAD ---
Exam Date: 04/13/2021 11:[address] HEAD/BRAIN WO Indication: Reason: FALL / Spl. Instructions: / History: . TECHNIQUE: Head CT was performed without intravenous contrast. One or more of the following dose re duction techniques were utilized: *Automated exposure control (AEC) *Adjustment of mA and/or kV according to patient size *Use of iterative reconstruction technique *CT scan done according to ALARA, or ALARA/IMAGE GENTLY FINDINGS: The ventricles and sulci are prominent consistent with cerebral volume loss. Patchy ill-defined low attenuation areas in the subcortical and periventricular white matter bilaterally are consistent with microvascular disease. There is no evidence of acute intracranial hemorrhage, extra-axial collecti on, mass effect, midline shift, or acute territorial infarct. No lesion of the skull base or the calv arium is seen. The visualized paranasal sinuses, mastoid air cells and orbits are normal in appearanc e. IMPRESSION: No evidence for acute intracranial abnormality. Volume loss and microvascular disease. Electronically signed by: Yuan Carrillo MD (04/13/2021 12:17 PM) [id number]
[2021-04-13 12:49] LABS: BACTERIA,URINE FEW /HPF (0-FEW); BILIRUBIN,URINE NEG (NEG); CLARITY,URINE CLEAR; COLOR,URINE YELLOW; GLUCOSE,URINE NEG (NEG); NITRITE,URINE NEG (NEG); RBC,URINE 0 /HPF (0-2); SQUAMOUS EPITHELIAL CELL,UR FEW /LPF; UROBILINOGEN,URINE 0.2 mg/dL (0.2 mg/dL)
[2021-04-13 13:05] VITALS: BP 150/73
--- NOTE | 2021-04-13 13:29 | RAD ---
EXAMINATION: CTA HEAD AND NECK W/WO CONTRAST CLINICAL HISTORY: Fall TECHNIQUE: Spiral high resolution axial images were obtained through the head, neck and superior medi astinum following bolus administration of intravenous contrast for CT angiography. 3D maximum intensi ty projection images also performed. CT Dose Reduction Employed: One or more of the following individualized dose reduction techniques wer e utilized for this examination: 1. Automated exposure control 2. Adjustment of the mA and/or kV ac cording to patient size 3. Use of iterative reconstruction technique. COMPARISON: NECT head same day FINDINGS: BRAIN: No definitive evidence of acute ischemic stroke or intracranial hemorrhage. NECK: Soft Tissues: Findings suggestive of a left thyroidectomy. Spine: Moderate multilevel degenerative changes. Lung Apices: Motion degraded images of the lungs demonstrate scattered curvilinear subsegmental atele ctasis and/or scarring. CT ARTERIOGRAM: Extracranial Circulation: Aortic Arch: Normal branching pattern from the aortic arch. Mild calcified plaque in the thoracic aor ta and arch vessels. No significant stenosis in the proximal brachiocephalic vessels. Carotid Stenosis: Right Common: No significant stenosis. Right Internal Carotid Plaque: No significant plaque formation. Right Internal Carotid Stenosis (% by NASCET Criteria): No significant stenosis. Left Common: No significant stenosis. Left Internal Carotid Plaque: Minimal focal calcified plaque in the proximal internal carotid artery. Left Internal Carotid Stenosis (% by NASCET Criteria): No significant stenosis. Cervical Vertebral Arteries: Patency: Bilateral Dominance: Left Intracranial Circulation: Anterior Circulation: No evidence of large vessel occlusion. Mild calcified atherosclerotic plaque in the bilateral intracranial internal carotid arteries, greater on the right. Vertebrobasilar Circulation: No evidence of large vessel occlusion. Normal variant origin of th e right posterior cerebral artery. IMPRESSION: No evidence of large vessel occlusion or significant carotid arterial stenosis. Electronically signed by: Mick Holbrook DO (04/13/2021 1:26 PM) [facility]
== END 2021-04-13 14:02 | disposition home or self-care (01) ==
LOC: ER 09:55
DX: I10 Essential (primary) hypertension (principal); M54.2 Cervicalgia; R06.02 Shortness of breath; R42 Dizziness and giddiness; E78.00 Pure hypercholesterolemia, unspecified; F03.90 Unspecified dementia, unspecified severity, without behavioral disturbance, psychotic disturbance, mood disturbance, and anxiety; F32.9 Major depressive disorder, single episode, unspecified; Z88.0 Allergy status to penicillin; W18.09XA Striking against other object with subsequent fall, initial encounter; Y93.89 Activity, other specified; Y92.098 Other place in other non-institutional residence as the place of occurrence of the external cause; Y99.8 Other external cause status
CPT/HCPCS: 36415; 70450; 70496; 70498; 80048; 81001; 84484; 85025; 87086; 93005; 99285; Q9967

== ENCOUNTER 2021-11-02 16:34 | Emergency (ER) | payer MEDICARE, OTHER ==
[~2021-11-02] VITALS: Ht 165.1 cm; Wt 75.4 kg
--- NOTE | 2021-11-02 16:41 | PHYS DOC ---
Past History Past Medical History: High Cholesterol, Other Additional Past Medical Histor: dementia, depression Past Surgical History: Hysterectomy, Other Additional Past Surgical Histo: CATARACTS AND RIGHT EYE IMPLANT Alcohol Use: None General Adult EDM: Chief Complaint: CHEST PAIN HPI: HPI: Patient is a 86-year-old female who presents with greater than 1 week history of chest pain symptoms, occasionally shortness of breath. She does not have any active chest pain at present. She describes pain in her midsternal area and left breast area, often sharp in nature, lasting seconds to minutes at a time. The dyspnea is not always associated with the chest pain. She denies any pleuritic pain, cough, hemoptysis. She denies fevers or chills. She denies dizziness, diaphoresis. She does report some epigastric discomfort, occasionally, occasional nausea, no vomiting. No change in appetite. No urinary symptoms. No bowel habit changes. No recent travel, surgery, hospitalization. She went to see her primary care doctor today, an EKG was performed, and she was referred here to the ER for imaging and for blood work. 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 She admits to having some sign ificant stress and anxiety issues, especially since her . She denies SI or HI symptoms. Review of Systems: Review of Systems: As per HPI Allergies: Allergies: Allergies Coded Allergies Type Severity Reaction Last Updated Verified Penicillins Allergy Intermediate 01/31/20 Yes Uncoded Allergies Type Severity Reaction Last Updated Verified PNEUMONIA VACCINE Allergy Unknown 04/13/21 Physical Exam: PE: Constitutional: Well developed, well nourished, no acute distress, non-toxic appearance. [] HENT: Normocephalic, atraumatic, oropharynx is patent and clear, mucous members are moist. Eyes: PERRL, EOMI, conjunctiva normal, no discharge. No nystagmus. No scleral icterus. Neck: Normal range of motion, no tenderness, supple, no stridor. Trachea is midline, no JVD. Cardiovascular:Heart rate regular rhythm, 2 radial and +2 posterior tibial pulses bilateral Lungs & Thorax: Bilateral breath sounds clear to auscultation, no rales, rhonchi or wheezes. Abdomen: Abdomen is soft, nondistended, nontender to palpation. No palpable masses organomegaly. No CVA tenderness. No flank abdominal ecchymoses. No p alpable pulsatile mass. Skin: Warm, dry, no erythema, no rash. [] Back: No tenderness, no CVA tenderness. [] Extremities: No tenderness, no cyanosis, no clubbing, ROM intact, no edema. No calf tenderness Neurologic: Alert and oriented X 3, normal motor function, normal sensory function, no focal deficits noted. [] Psychologic: She is mildly anxious but pleasant cooperative. EKG: EKG: EKG is interpreted at 1648 Rhythm is sinus Rate is 80 bpm [place] is normal No STEMI Radiology/Procedures: Radiology/Procedures: IMAGING REPORT Signed PATIENT: NATALIYA RAMÍREZ ACCOUNT: [id number] : 1935 LOCATION: ER AGE: 86 SEX: F EXAM STATUS: REG ER ORD. PHYSICIAN: CONCEPCIÓN ANDREWS DO REASON: Chest pain PROCEDURE: PORTABLE CHEST 1V XR CHEST 1V 11/02/2021 5:00 PM INDICATION: Chest pain COMPARISON: None available TECHNIQUE: Portable frontal view of the chest is provided. FINDINGS: The cardiomediastinal silhouette is within normal limits. Lungs are clear. Subsegmental atelectasis in the medial left lung base versus scarring. There are no significant pleural effusions. There is no pulmonary vascular congestion. No pneumothorax. No suspicious osseous abnormality. IMPRESSION: There is no acute cardiopulmonary process. Electronically signed by: Vicky Block MD (11/02/2021 5:22 PM) [facility] DICTATED AND SIGNED BY: VICKY BLOCK MD DATE: 11/02/211720 CC: DELPHINE WASHINGTON MD; CONCEPCIÓN ANDREWS DO; SNEHA KAMARA APRN ~ Heart Score: C/O Chest Pain: Yes HEART Score for Chest Pain: HEART Score for Chest Pain Response (Comments) Value History Moderately Suspicious 1 ECG Nonspecific Repolarizatio 1 Age > 65 2 Risk Factors 1 or 2 Risk Factors 1 Total 5 Risk Factors: Risk Factors: DM, Current or recent (<one month) smoker, HTN, HLP, family history of CAD, obesity. Risk Scores: Score 0 - 3: 2.5% MACE over next 6 weeks - Discharge Home Score 4 - 6: 20.3% MACE over next 6 weeks - Admit for Clinical Observation Score 7 - 10: 72.7% MACE over next 6 weeks - Early Invasive Strategies Course & Med Decision Making: Course & Med Decision Making Pertinent Labs and Imaging studies reviewed. (See chart for details) Patient has denied any recurrence of chest pain or dyspnea here. EKG is nonspecific but did not demonstrate acute ischemia. Troponin is negative. ED work-up is unremarkable for acute life-threatening process. She has had symptoms for over a week. There is no current indication for emergent admission or transfer. I recommend that she contact her PCP and follow-up with [facility] cardiology services. She is given information for outpatient cardiology. Strict return precautions are given. The patient is very comfortable with the plan of care, verbalized understanding of all instructions provided. Timothy Disclaimer: Timothy Disclaimer: This electronic medical record was generated, in whole or in part, using a voice recognition dictation system. Departure Departure: Impression: Primary Impression: Chest pain Qualified Codes: R07.9 - Chest pain, unspecified Disposition: HOME / SELF CARE / HOMELESS Condition: STABLE Referrals: DELPHINE WASHINGTON MD (PCP) RUCHI LANGSTON MD Patient Instructions: Chest Pain (Nonspecific) Additional Instructions: Return to the ER for more severe pain, severe shortness of breath, uncontrolled vomiting, severe abdominal pain, coughing up blood, temperature of 100.4 or higher, focal weakness, fall, acute injury, passing out or for any other concerns. Please follow-up with your primary care doctor, also follow-up with outpatient cardiology, see Dr. Langston. CONCEPCIÓN ANDREWS DO Nov 02, 2021 16:41
--- NOTE | 2021-11-02 17:25 | RAD ---
XR CHEST 1V 11/02/2021 5:00 PM INDICATION: Chest pain COMPARISON: None available TECHNIQUE: Portable frontal view of the chest is provided. FINDINGS: The cardiomediastinal silhouette is within normal limits. Lungs are clear. Subsegmental atelectasis i n the medial left lung base versus scarring. There are no significant pleural effusions. There is no pulmonary vascular congestion. No pneumothora x. No suspicious osseous abnormality. IMPRESSION: There is no acute cardiopulmonary process. Electronically signed by: Katya Braxton MD (11/02/2021 5:22 PM) [employer]OR
[2021-11-02 17:38] LABS: BASO % 0 % (0-3); EOS % 1 % (0-3); HEMATOCRIT 46.9 % (36.0-47.0); HEMOGLOBIN 15.3 g/dL (12.0-15.5); LYMPH # 1.5 x10^3/uL (1.0-4.8); LYMPH % 29 % (24-48); MEAN CORPUSCULAR HEMOGLOBIN 28 pg (25-35); MEAN CORPUSCULAR HGB CONC 33 g/dL (31-37); MEAN CORPUSCULAR VOLUME 87 fL (79-100); MONO # 0.5 x10^3/uL (0.0-1.1); MONO % 9 % (0-9); NEUT # 3.2 x10^3uL (1.8-7.7); NEUT % 60 % (31-73); PLATELET COUNT 199 x10^3/uL (140-400); RED BLOOD COUNT 5.42 x10^6/uL (3.50-5.40); RED CELL DISTRIBUTION WIDTH 14.1 % (11.5-14.5); WHITE BLOOD COUNT 5.2 x10^3/uL (4.0-11.0)
[2021-11-02 17:39] LABS: CALCIUM 9.8 mg/dL (8.5-10.1); CREATININE 0.8 mg/dL (0.6-1.0)
[2021-11-02 17:51] LABS: ALBUMIN 3.9 g/dL (3.4-5.0); ALBUMIN/GLOBULIN RATIO 1.2 (1.0-1.7); MAGNESIUM 2.1 mg/dL (1.8-2.4); TOTAL BILIRUBIN 0.3 mg/dL (0.2-1.0); TOTAL PROTEIN 7.1 g/dL (6.4-8.2)
[2021-11-02 18:11] VITALS: BP 149/67
[2021-11-02 18:14] LABS: BACTERIA,URINE FEW /HPF (0-FEW); CLARITY,URINE CLEAR; COLOR,URINE YELLOW; GLUCOSE,URINE NEG (NEG); NITRITE,URINE NEG (NEG); RBC,URINE OCC /HPF (0-2); SQUAMOUS EPITHELIAL CELL,UR MOD /LPF; UROBILINOGEN,URINE 0.2 mg/dL (0.2 mg/dL)
--- NOTE | 2021-11-02 20:20 | EKG ---
[address] [address] Test Date: 2021-11-02 Test Time: 16:48:49 Pat Name: NATALIYA RAMÍREZ Department: Room: Gender: F [employer]: : 1935 Requested By: CONCEPCIÓN ANDREWS Order Number: [id number] Reading MD: Aneudy Jaramillo Measurements Intervals [place] Rate: 80 P: 90 VA: 128 QRS: 48 QRSD: 92 T: 105 QT: 388 QTc: 451 Interpretive Statements SINUS RHYTHM ST & T ABNORMALITY, CONSIDER LATERAL ISCHEMIA OR LEFT VENTRICULAR STRAIN Electronically Signed On 11-06-2021 21:41:33 CDT by Aneudy Jaramillo
== END 2021-11-02 18:41 | disposition home or self-care (01) ==
LOC: ER 16:34
DX: R07.2 Precordial pain (principal); R06.02 Shortness of breath; E78.00 Pure hypercholesterolemia, unspecified; Z88.0 Allergy status to penicillin
CPT/HCPCS: 36415; 71045; 80053; 81001; 83690; 83735; 83880; 84484; 85025; 87086; 93005; 99285